=== PATIENT | female | born 1975 | race African-American/Black ===

== ENCOUNTER 2020-11-19 16:45 | Inpatient (IN) | payer OTHER, SELFPAY ==
[~2020-11-19 16:45] MED LIST: Iopamidol-370 76% 500 ML 1 ML ONE
[2020-11-19 18:02] LABS: #Eosinphils 0.2 thou/uL (0.0-0.7); #Lymphocytes 1.1 thou/uL (1.20-3.40); #Monocytes 0.5 thou/uL (0.11-0.59); #Neutrophils 8.7 thou/uL (1.40-6.50); %Basophils 0.1 % (0.0-1.0); %Eosinophils 1.9 % (0.0-10.0); %Lymphocytes 10.2 % (21.0-51.0); %Neutrophils 82.8 % (42.0-75.0); Hemoglobin 9.2 g/dL (12.0-16.0); Mean Corpuscular HGB CONC 27.5 g/dL (32.0-36.0); Mean Corpuscular Hemoglobin 19.6 pg (27.0-31.0); Mean Corpuscular Volume 71.2 fL (78.0-98.0); Mean Platelet Volume 8.6 fL (7.4-10.4); Platelet Count 210 thou/uL (130-400); RBC Distribution Width 24.9 % (11.5-14.5); White Blood Cell (WBC) Count 10.5 thou/uL (4.8-10.8)
[2020-11-19 18:15] LABS: Anisocytosis MODERATE=16-30 cells (100X) (0-5/hpf); Hypochromia SLIGHT = 6-15 cells (100X) (0-5/hpf); Large Platelets SLIGHT; MDiff Complete? YES; Microcytosis SLIGHT = 6-15 cells (100X) (0-5/hpf); Ovalocytes SLIGHT = 2-5 cells (100X) (0-1/hpf); Platelet Morphology Comment Appears Adequate; Poikilocytosis SLIGHT = 6-15 cells (100X) (0-5/hpf); Polychromasia SLIGHT = 2-3 cells (100X) (0-2/hpf); Target Cells SLIGHT = 2-5 cells (100X) (0-1/hpf)
[2020-11-19 18:19] LABS: ALT (SGPT) 28 U/L (8-55); AST (SGOT) 18 U/L (5-34); Albumin 3.2 g/dL (3.5-5.0); Alkaline Phosphatase 129 U/L (40-110); Anion Gap 13 mmol/L (10-20); BUN (Urea Nitrogen) 42 mg/dL (7.0-18.7); Bilirubin, Total 0.9 mg/dL (0.2-1.2); Calc. Creatinine Clearance 0 mL/min (70-130); Calcium 7.8 mg/dL (7.8-10.44); Carbon Dioxide 31 mmol/L (22-29); Chloride 107 mmol/L (98-107); Globulin 4.4 g/dL (2.4-3.5); Glucose 144 mg/dL (70-105); Potassium 3.6 mmol/L (3.5-5.1); Protein, Total 7.6 g/dL (6.0-8.3); Sodium 147 mmol/L (136-145)
[2020-11-19] MEDS ORDERED: Aspirin Chewable 81 MG TAB ONE (18:33)
[2020-11-19] MEDS ORDERED: Furosemide 40 MG/4 ML VIAL ONE (18:33)
[2020-11-19 18:42] LABS: CKMB 1.7 ng/mL (0-6.6)
[2020-11-19] MEDS ORDERED: Nitroglycerin 2% Ointment 1 INCH/1 GM Packet ONE (18:49)
[2020-11-19 19:35] LABS: Bacteria/HPF None Seen HPF (None Seen); Bilirubin Negative (Negative); Blood, Urine 2+ (Negative); Clarity Clear (Clear); Glucose, Urine (Dipstick) Normal (Negative); Ketone, Urine Negative (Negative); Leukocyte 25 Leu/uL (Negative); Nitrite Negative (Negative); Protein, Urine (Dipstick) 50 mg/dL (Neg-Trace); RBC/HPF 0-3 HPF (0-3); Specific Gravity, Urine 1.012 (1.002-1.036); Squamous Epithelial 0-3 HPF (0-3); Urobilinogen Normal mg/dL (Less than 2); pH, Urine 5.5 (5.0-9.0)
[2020-11-19] MEDS ORDERED: Heparin 10,000 UNITS/ 10 ML VIAL ONE (19:40)
[2020-11-19] MEDS ORDERED: Heparin 25,000 units/D5W 500 ML ONE (19:40)
[2020-11-19 20:08] LABS: SARS-CoV-2 NAA Rapid Test Not Detected (NotDetected)
[2020-11-19 21:40] LABS: Troponin I 0.046 ng/mL (< 0.028)
[2020-11-20 02:22] LABS: Troponin I 0.034 ng/mL (< 0.028)
[2020-11-20 05:48] LABS: Iron 22 ug/dL (50-170); Iron Binding Capacity, Total 436 mcg/dL (265-497)
[2020-11-20 05:49] LABS: Anion Gap 12 mmol/L (10-20); BUN (Urea Nitrogen) 39 mg/dL (7.0-18.7); Calc. Creatinine Clearance 115 mL/min (70-130); Calcium 8.4 mg/dL (7.8-10.44); Carbon Dioxide 36 mmol/L (22-29); Chloride 105 mmol/L (98-107); Glucose 179 mg/dL (70-105); Iron Binding Capacity, Total 440 mcg/dL (265-497); Sodium 149 mmol/L (136-145)
[2020-11-20 06:06] LABS: Hemoglobin 9.3 g/dL (12.0-16.0); Mean Corpuscular Hemoglobin 19.2 pg (27.0-31.0); Mean Corpuscular Volume 71.2 fL (78.0-98.0); Mean Platelet Volume 8.6 fL (7.4-10.4); Platelet Count 238 thou/uL (130-400); RBC Distribution Width 25.3 % (11.5-14.5); Red Blood Cell (RBC) Count 4.86 mill/uL (4.20-5.40); White Blood Cell (WBC) Count 12.7 thou/uL (4.8-10.8)
[2020-11-20 06:27] LABS: Band 9 % (5-11); Hypochromia MODERATE=16-30 cells (100X) (0-5/hpf); Lymphocytes 4 % (21-51); MDiff Complete? YES; Metamyelocyte 1 % (0-0); Microcytosis SLIGHT = 6-15 cells (100X) (0-5/hpf); Neutrophil 86 % (42-75); Nucleated RBC 3 % (0); Ovalocytes SLIGHT = 2-5 cells (100X) (0-1/hpf); Platelet Morphology Comment Appears Adequate
[2020-11-20] MEDS: Furosemide 40 MG/4 ML VIAL SLOW IVP SCH (08:13)
[2020-11-20] MEDS ORDERED: FLU VACC QS2020-21(6MOS UP)/PF 60 MCG/0.5 ML SYRINGE IM ONE (09:00)
[2020-11-20] MEDS ORDERED: Iron Sucrose Complex 100 MG in Sodium Chloride 0.9% 100 ML IVPB SCH (15:45)
[2020-11-20] MEDS ORDERED: Iron, Sodium Ferric Gluconate 125 MG in Sodium Chloride 0.9% 100 ML IVPB SCH (17:00)
[2020-11-21 04:48] LABS: #Eosinphils 0.1 thou/uL (0.0-0.7); #Monocytes 0.9 thou/uL (0.11-0.59); #Neutrophils 9.4 thou/uL (1.40-6.50); %Basophils 0.2 % (0.0-1.0); %Eosinophils 0.7 % (0.0-10.0); %Lymphocytes 8.6 % (21.0-51.0); %Monocytes 8.2 % (0.0-10.0); %Neutrophils 82.2 % (42.0-75.0); Hemoglobin 8.4 g/dL (12.0-16.0); Mean Corpuscular HGB CONC 27.1 g/dL (32.0-36.0); Mean Corpuscular Hemoglobin 19.5 pg (27.0-31.0); Mean Corpuscular Volume 71.9 fL (78.0-98.0); Platelet Count 224 thou/uL (130-400); RBC Distribution Width 24.7 % (11.5-14.5); Red Blood Cell (RBC) Count 4.29 mill/uL (4.20-5.40); White Blood Cell (WBC) Count 11.4 thou/uL (4.8-10.8)
[2020-11-21 05:08] LABS: Anion Gap 12 mmol/L (10-20); BUN (Urea Nitrogen) 38 mg/dL (7.0-18.7); Calc. Creatinine Clearance 125 mL/min (70-130); Calcium 8.4 mg/dL (7.8-10.44); Carbon Dioxide 35 mmol/L (22-29); Chloride 103 mmol/L (98-107); Glucose 149 mg/dL (70-105); Potassium 3.9 mmol/L (3.5-5.1); Sodium 146 mmol/L (136-145)
[2020-11-21] MEDS: Ferrous Gluconate 324 MG TAB PO SCH (08:53)
[2020-11-21] MEDS: Furosemide 40 MG/4 ML VIAL SLOW IVP SCH (08:53)
[2020-11-21] MEDS: Enoxaparin Sodium 40 MG/0.4 ML SYRINGE SC SCH (10:06)
[2020-11-21] MEDS ORDERED: Metoprolol Tartrate 25 MG TAB PO SCH (12:00)
[2020-11-21] MEDS ORDERED: Furosemide 40 MG/4 ML VIAL SLOW IVP SCH ×3 (14:00→18:30)
[2020-11-21] MEDS: guaiFENesin ER 600 MG TAB PO SCH (16:05)
[2020-11-21] MEDS ORDERED: guaiFENesin ER 600 MG TAB PO SCH (16:15)
[2020-11-21 18:46] LABS: Base Excess (BEa) 8.5 mEq/L (-2.0 to +3.0); Calcium, Ionized (arterial) 1.22 mmol/L (1.12-1.30); Carboxyhemoglobin (COHb) 1.7 gm% (0.0-3.0); Hemoglobin (Hb) 9.6 g/dL (12.0-16.0); O2 Tension (PaO2), arterial 104.6 mmHg (80.0-100.0)
[2020-11-21 18:47] LABS: CO2 Tension 134.9 mmHg (35.0-45.0)
[2020-11-21 18:50] LABS: ALV-art Gradient 40.495 mmHg (0-20)
[2020-11-21 20:03] LABS: Actual Bicarbonate (HCO3a) 43.3 mEq/L (22-28); Calcium, Ionized (arterial) 1.18 mmol/L (1.12-1.30); Carboxyhemoglobin (COHb) 2.2 gm% (0.0-3.0); O2 Tension (PaO2), arterial 83.7 mmHg (80.0-100.0); Potassium - ABG Lab 3.97 mmol/L (3.70-5.30)
[2020-11-21 20:05] LABS: CO2 Tension 122.3 mmHg (35.0-45.0); pH, Arterial 7.17 (7.35-7.45)
[2020-11-21 20:06] LABS: ALV-art Gradient 119.925 mmHg (0-20); Puncture Site LBA
[2020-11-21] MEDS ORDERED: Electrolyte Replacement Protocol 1 EACH FS ONE (20:15)
[2020-11-21] MEDS ORDERED: methylPREDNISolone Sod Succ/PF 125 MG/2 ML VIAL IVP SCH (20:15)
[2020-11-21] MEDS ORDERED: Midazolam HCl 2 mg/2 ml Vial ONE ×2 (20:24→20:59)
[2020-11-21] MEDS ORDERED: Propofol 1,000 MG/100 ML VIAL IV ONE ×2 (20:26→22:07)
[2020-11-21] MEDS ORDERED: Electrolyte Replacement Protocol FS PRN (20:30)
[2020-11-21] MEDS ORDERED: Lorazepam 2 MG/ML VIAL ONE (21:39)
[2020-11-21 22:13] LABS: Base Excess (BEa) 6.2 mEq/L (-2.0 to +3.0); CO2 Tension 53.8 mmHg (35.0-45.0); Calcium, Ionized (arterial) 1.15 mmol/L (1.12-1.30); Carboxyhemoglobin (COHb) 1.9 gm% (0.0-3.0); Hemoglobin (Hb) 8.4 g/dL (12.0-16.0); O2 Tension (PaO2), arterial 73.1 mmHg (80.0-100.0); Potassium - ABG Lab 3.95 mmol/L (3.70-5.30); pH, Arterial 7.39 (7.35-7.45)
[2020-11-21] MEDS ORDERED: DISCONTINUE PREVIOUS NARCOTIC PAIN MEDICATIONS AND BENZODIAZEPINES FS SCH (22:15)
[2020-11-21] MEDS ORDERED: Morphine 2 MG/ML VIAL SLOW IVP PRN (22:15)
[2020-11-21] MEDS ORDERED: Fentanyl BOLUS 250 ML IVPB PRN (22:15)
[2020-11-21] MEDS ORDERED: Propofol BOLUS 1,000 MG/100 ML VIAL IV PRN (22:15)
[2020-11-21 22:40] LABS: Puncture Site RBA
[2020-11-21] MEDS: Metoprolol Tartrate 25 MG TAB PO SCH (22:51)
[2020-11-21] MEDS: fentaNYL Citrate/PF 2,000 MCG in Sodium Chloride 0.9% 60 ML IV SCH (23:39)
[2020-11-22] MEDS: Lorazepam 2 MG/ML VIAL SLOW IVP PRN ×3 (02:58→13:01)
[2020-11-22] MEDS: Propofol 1,000 MG/100 ML VIAL IV PRN ×10 (02:58→20:58)
[2020-11-22 04:53] LABS: Hemoglobin A1c 5.8 % (4.0-6.0)
[2020-11-22 05:03] LABS: #Eosinphils 0.1 thou/uL (0.0-0.7); #Lymphocytes 0.7 thou/uL (1.20-3.40); #Monocytes 0.4 thou/uL (0.11-0.59); #Neutrophils 7.3 thou/uL (1.40-6.50); %Eosinophils 0.9 % (0.0-10.0); %Lymphocytes 8.4 % (21.0-51.0); %Monocytes 5.2 % (0.0-10.0); %Neutrophils 85.4 % (42.0-75.0); Hemoglobin 8.1 g/dL (12.0-16.0); Mean Corpuscular HGB CONC 27.1 g/dL (32.0-36.0); Mean Corpuscular Hemoglobin 19.9 pg (27.0-31.0); Mean Corpuscular Volume 73.4 fL (78.0-98.0); Mean Platelet Volume 7.6 fL (7.4-10.4); Platelet Count 219 thou/uL (130-400); RBC Distribution Width 24.7 % (11.5-14.5); Red Blood Cell (RBC) Count 4.08 mill/uL (4.20-5.40); White Blood Cell (WBC) Count 8.5 thou/uL (4.8-10.8)
[2020-11-22 05:10] LABS: Anion Gap 15 mmol/L (10-20); BUN (Urea Nitrogen) 39 mg/dL (7.0-18.7); Calc. Creatinine Clearance 142 mL/min (70-130); Calcium 8.7 mg/dL (7.8-10.44); Carbon Dioxide 34 mmol/L (22-29); Chloride 102 mmol/L (98-107); Glucose 98 mg/dL (70-105); Potassium 3.3 mmol/L (3.5-5.1); Sodium 148 mmol/L (136-145)
[2020-11-22] MEDS: Furosemide 40 MG/4 ML VIAL SLOW IVP SCH ×5 (05:38→23:13)
[2020-11-22] MEDS: methylPREDNISolone Sod Succ 40 MG VIAL IVP SCH ×4 (05:38→23:13)
[2020-11-22 05:50] LABS: SARS-CoV-2 MS2 Positive; SARS-CoV-2 N Gene Negative; SARS-CoV-2 S Gene Negative; SARS-CoV-2 by NAA Not Detected (NotDetected); SARS-CoV-2 orf1ab Negative
[2020-11-22] MEDS: Metoprolol Tartrate 25 MG TAB PO SCH ×2 (07:53→20:58)
[2020-11-22] MEDS: Ferrous Gluconate 324 MG TAB PO SCH (07:53)
[2020-11-22] MEDS: Enoxaparin Sodium 40 MG/0.4 ML SYRINGE SC SCH (07:53)
[2020-11-22] MEDS ORDERED: Potassium Chloride 2 MEQ in Premix Bag 1 BAG IVPB SCH (08:00)
[2020-11-22] MEDS ORDERED: Potassium Chloride 20 MEQ in Premix Bag 1 BAG IVPB SCH (10:00)
[2020-11-22] MEDS: GUAIFENESIN SF SOLN 200 MG/10 ML UDCUP PO SCH ×3 (11:47→21:20)
[2020-11-22] MEDS: fentaNYL Citrate/PF 2,000 MCG in Sodium Chloride 0.9% 60 ML IV SCH (12:17)
[2020-11-22] MEDS ORDERED: guaiFENesin 100 MG/5 ML UDCUP PO SCH (13:00)
[2020-11-22] MEDS: cefTRIAXone\\ROCEPHIN 2 GM in Sodium Chloride 0.9% 100 ML IVPB SCH (14:26)
[2020-11-22] MEDS: Acetaminophen 650 MG/20.3 ML UDCUP PO PRN ×2 (16:57→21:17)
[2020-11-23] MEDS: GUAIFENESIN SF SOLN 200 MG/10 ML UDCUP PO SCH ×6 (00:25→20:31)
[2020-11-23] MEDS: Propofol 1,000 MG/100 ML VIAL IV PRN ×7 (00:25→21:26)
[2020-11-23] MEDS: fentaNYL Citrate/PF 2,000 MCG in Sodium Chloride 0.9% 60 ML IV SCH ×2 (01:15→13:49)
[2020-11-23 04:39] LABS: Anion Gap 12 mmol/L (10-20); BUN (Urea Nitrogen) 36 mg/dL (7.0-18.7); Calc. Creatinine Clearance 0 mL/min (70-130); Calcium 8.5 mg/dL (7.8-10.44); Carbon Dioxide 35 mmol/L (22-29); Chloride 104 mmol/L (98-107); Glucose 138 mg/dL (70-105); Sodium 148 mmol/L (136-145)
[2020-11-23 04:41] LABS: Potassium 2.7 mmol/L (3.5-5.1)
[2020-11-23 04:44] LABS: #Lymphocytes 0.6 thou/uL (1.20-3.40); #Monocytes 0.6 thou/uL (0.11-0.59); #Neutrophils 7.8 thou/uL (1.40-6.50); %Eosinophils 0.3 % (0.0-10.0); %Lymphocytes 6.2 % (21.0-51.0); %Monocytes 6.3 % (0.0-10.0); %Neutrophils 87.1 % (42.0-75.0); Mean Corpuscular HGB CONC 27.6 g/dL (32.0-36.0); Mean Corpuscular Hemoglobin 19.7 pg (27.0-31.0); Mean Corpuscular Volume 71.2 fL (78.0-98.0); Mean Platelet Volume 7.7 fL (7.4-10.4); Platelet Count 243 thou/uL (130-400); RBC Distribution Width 25.9 % (11.5-14.5); Red Blood Cell (RBC) Count 4.08 mill/uL (4.20-5.40)
[2020-11-23] MEDS: Potassium Chloride 40 MEQ in Sodium Chloride 0.9% 250 ML 250 ML IVPB SCH ×2 (05:12→13:34)
[2020-11-23] MEDS: methylPREDNISolone Sod Succ 40 MG VIAL IVP SCH ×3 (06:32→17:47)
[2020-11-23] MEDS: Furosemide 40 MG/4 ML VIAL SLOW IVP SCH ×3 (06:32→20:31)
[2020-11-23] MEDS: Ferrous Gluconate 324 MG TAB PO SCH (07:58)
[2020-11-23] MEDS: Enoxaparin Sodium 40 MG/0.4 ML SYRINGE SC SCH (07:58)
[2020-11-23] MEDS ORDERED: Potassium Chloride 40 MEQ in Sodium Chloride 0.9% 250 ML 250 ML IVPB SCH (09:00)
[2020-11-23] MEDS: Lorazepam 2 MG/ML VIAL SLOW IVP PRN (13:59)
[2020-11-23] MEDS: cefTRIAXone\\ROCEPHIN 2 GM in Sodium Chloride 0.9% 100 ML IVPB SCH (14:28)
[2020-11-23] MEDS ORDERED: NIFEdipine 10 MG CAP PER TUBE SCH (17:00)
[2020-11-23] MEDS ORDERED: Pancrelipase DR 12,000 1 CAP FS PRN (19:45)
[2020-11-23] MEDS ORDERED: Sodium Bicarbonate Tab 325 MG TAB PER TUBE PRN (19:45)
[2020-11-23] MEDS: guaiFENesin ER 600 MG TAB PO SCH (20:06)
[2020-11-23] MEDS: Metoprolol Tartrate 25 MG TAB PO SCH (20:06)
[2020-11-23] MEDS: Famotidine 20 MG TAB PO SCH (20:31)
[2020-11-23] MEDS ORDERED: Metoprolol Tartrate 25 MG TAB PO SCH (21:00)
[2020-11-24] MEDS: Metoprolol Tartrate 25 MG TAB PER TUBE SCH ×3 (00:02→21:45)
[2020-11-24] MEDS: methylPREDNISolone Sod Succ 40 MG VIAL IVP SCH ×4 (00:55→18:26)
[2020-11-24] MEDS: Propofol 1,000 MG/100 ML VIAL IV PRN ×7 (00:55→21:45)
[2020-11-24] MEDS: GUAIFENESIN SF SOLN 200 MG/10 ML UDCUP PO SCH ×6 (00:55→21:44)
[2020-11-24] MEDS ORDERED: Fentanyl CADD 100 ML ONE ×2 (01:44→13:59)
[2020-11-24] MEDS ORDERED: fentaNYL Citrate/PF 2,000 MCG in Sodium Chloride 0.9% 60 ML IV SCH (02:00)
[2020-11-24] MEDS: Furosemide 40 MG/4 ML VIAL SLOW IVP SCH ×3 (04:24→21:44)
[2020-11-24 05:37] LABS: #Lymphocytes 0.7 thou/uL (1.20-3.40); #Monocytes 0.6 thou/uL (0.11-0.59); #Neutrophils 10.2 thou/uL (1.40-6.50); %Eosinophils 0.1 % (0.0-10.0); %Lymphocytes 5.9 % (21.0-51.0); Hemoglobin 8.3 g/dL (12.0-16.0); Mean Corpuscular HGB CONC 27.6 g/dL (32.0-36.0); Mean Corpuscular Hemoglobin 20.2 pg (27.0-31.0); Mean Corpuscular Volume 73.1 fL (78.0-98.0); Mean Platelet Volume 8.2 fL (7.4-10.4); Platelet Count 233 thou/uL (130-400); RBC Distribution Width 26.7 % (11.5-14.5); Red Blood Cell (RBC) Count 4.11 mill/uL (4.20-5.40); White Blood Cell (WBC) Count 11.4 thou/uL (4.8-10.8)
[2020-11-24 05:52] LABS: Anion Gap 15 mmol/L (10-20); BUN (Urea Nitrogen) 41 mg/dL (7.0-18.7); Calc. Creatinine Clearance 123 mL/min (70-130); Calcium 8.2 mg/dL (7.8-10.44); Carbon Dioxide 30 mmol/L (22-29); Chloride 106 mmol/L (98-107); Glucose 148 mg/dL (70-105); Sodium 149 mmol/L (136-145)
[2020-11-24 05:56] LABS: Potassium 2.4 mmol/L (3.5-5.1)
[2020-11-24] MEDS: Potassium Chloride 40 MEQ in Sodium Chloride 0.9% 250 ML 250 ML IVPB SCH ×2 (07:08→12:03)
[2020-11-24] MEDS: Famotidine 20 MG TAB PO SCH ×2 (09:22→21:45)
[2020-11-24] MEDS: Ferrous Gluconate 324 MG TAB PO SCH (09:22)
[2020-11-24] MEDS: Enoxaparin Sodium 40 MG/0.4 ML SYRINGE SC SCH (09:22)
[2020-11-24] MEDS: NIFEdipine 10 MG CAP PER TUBE SCH (09:22)
[2020-11-24] MEDS: Fentanyl CADD 100 ML IV SCH (14:03)
[2020-11-24] MEDS: cefTRIAXone\\ROCEPHIN 2 GM in Sodium Chloride 0.9% 100 ML IVPB SCH (14:04)
[2020-11-25] MEDS: GUAIFENESIN SF SOLN 200 MG/10 ML UDCUP PO SCH ×6 (00:31→20:17)
[2020-11-25] MEDS: methylPREDNISolone Sod Succ 40 MG VIAL IVP SCH ×5 (00:31→22:56)
[2020-11-25] MEDS ORDERED: Fentanyl CADD 100 ML ONE ×2 (02:05→14:47)
[2020-11-25 06:27] LABS: Anion Gap 16 mmol/L (10-20); BUN (Urea Nitrogen) 47 mg/dL (7.0-18.7); Calc. Creatinine Clearance 124 mL/min (70-130); Calcium 8.1 mg/dL (7.8-10.44); Carbon Dioxide 27 mmol/L (22-29); Chloride 109 mmol/L (98-107); Glucose 180 mg/dL (70-105); Potassium 2.6 mmol/L (3.5-5.1); Sodium 149 mmol/L (136-145)
[2020-11-25] MEDS: Furosemide 40 MG/4 ML VIAL SLOW IVP SCH ×3 (06:38→20:17)
[2020-11-25 07:40] LABS: Hemoglobin 8.7 g/dL (12.0-16.0); Platelet Count 232 thou/uL (130-400); RBC Distribution Width 27.6 % (11.5-14.5); Red Blood Cell (RBC) Count 4.32 mill/uL (4.20-5.40); White Blood Cell (WBC) Count 11.9 thou/uL (4.8-10.8)
[2020-11-25] MEDS: Propofol 1,000 MG/100 ML VIAL IV PRN ×5 (07:53→22:56)
[2020-11-25] MEDS: Potassium Chloride 20 MEQ in Premix Bag 1 BAG IVPB SCH ×4 (07:53→15:28)
[2020-11-25 08:10] LABS: #Lymphocytes 0.6 thou/uL (1.20-3.40); #Monocytes 0.4 thou/uL (0.11-0.59); #Neutrophils 10.9 thou/uL (1.40-6.50); %Neutrophils 91.9 % (42.0-75.0); Anisocytosis MARKED = >30 cells (100X) (0-5/hpf); Band 3 % (5-11); Hypochromia MODERATE=16-30 cells (100X) (0-5/hpf); Lymphocytes 2 % (21-51); MDiff Complete? YES; Mean Corpuscular HGB CONC 27.7 g/dL (32.0-36.0); Mean Corpuscular Hemoglobin 20.2 pg (27.0-31.0); Mean Platelet Volume 8.9 fL (7.4-10.4); Metamyelocyte 1 % (0-0); Monocytes 3 % (0-10); Neutrophil 91 % (42-75); Ovalocytes SLIGHT = 2-5 cells (100X) (0-1/hpf); Platelet Morphology Comment Appears Adequate; Polychromasia MARKED = >4 cells (100X) (0-2/hpf)
[2020-11-25] MEDS ORDERED: NIFEdipine 10 MG CAP PER TUBE SCH (09:15)
[2020-11-25] MEDS: Enoxaparin Sodium 40 MG/0.4 ML SYRINGE SC SCH (09:24)
[2020-11-25] MEDS: Potassium Bicarbonate/Cit Ac 20 MEQ TAB PER TUBE SCH ×3 (09:25→20:18)
[2020-11-25] MEDS: Famotidine 20 MG TAB PO SCH ×2 (09:26→20:18)
[2020-11-25] MEDS: Ferrous Gluconate 324 MG TAB PO SCH (09:26)
[2020-11-25] MEDS: Metoprolol Tartrate 25 MG TAB PER TUBE SCH ×3 (09:26→20:18)
[2020-11-25] MEDS: NIFEdipine 10 MG CAP PER TUBE SCH (09:50)
[2020-11-25] MEDS: Fentanyl CADD 100 ML IV SCH (14:50)
[2020-11-25] MEDS: cefTRIAXone\\ROCEPHIN 2 GM in Sodium Chloride 0.9% 100 ML IVPB SCH (15:02)
[2020-11-25] MEDS: Lorazepam 2 MG/ML VIAL SLOW IVP PRN (22:56)
[2020-11-26] MEDS: GUAIFENESIN SF SOLN 200 MG/10 ML UDCUP PO SCH ×6 (00:49→20:50)
[2020-11-26] MEDS: Propofol 1,000 MG/100 ML VIAL IV PRN ×7 (01:48→23:33)
[2020-11-26] MEDS ORDERED: Fentanyl CADD 100 ML ONE ×2 (03:24→16:03)
[2020-11-26] MEDS: Fentanyl CADD 100 ML IV SCH ×2 (03:29→16:05)
[2020-11-26] MEDS: Furosemide 40 MG/4 ML VIAL SLOW IVP SCH ×3 (03:34→20:46)
[2020-11-26] MEDS: Acetaminophen 650 MG/20.3 ML UDCUP PO PRN (03:53)
[2020-11-26] MEDS: methylPREDNISolone Sod Succ 40 MG VIAL IVP SCH ×4 (05:05→23:34)
[2020-11-26 05:08] LABS: Anion Gap 17 mmol/L (10-20); BUN (Urea Nitrogen) 45 mg/dL (7.0-18.7); Calc. Creatinine Clearance 121 mL/min (70-130); Calcium 7.9 mg/dL (7.8-10.44); Carbon Dioxide 25 mmol/L (22-29); Chloride 112 mmol/L (98-107); Glucose 205 mg/dL (70-105); Sodium 151 mmol/L (136-145)
[2020-11-26 05:14] LABS: #Lymphocytes 0.7 thou/uL (1.20-3.40); #Monocytes 0.4 thou/uL (0.11-0.59); #Neutrophils 9.1 thou/uL (1.40-6.50); %Eosinophils 0.1 % (0.0-10.0); %Lymphocytes 6.9 % (21.0-51.0); %Monocytes 3.6 % (0.0-10.0); %Neutrophils 89.4 % (42.0-75.0); Hemoglobin 8.5 g/dL (12.0-16.0); Mean Corpuscular HGB CONC 28.9 g/dL (32.0-36.0); Mean Corpuscular Hemoglobin 20.2 pg (27.0-31.0); Mean Platelet Volume 8.4 fL (7.4-10.4); Platelet Count 239 thou/uL (130-400); RBC Distribution Width 28.2 % (11.5-14.5); Red Blood Cell (RBC) Count 4.19 mill/uL (4.20-5.40); White Blood Cell (WBC) Count 10.2 thou/uL (4.8-10.8)
[2020-11-26] MEDS ORDERED: Potassium Chloride 20 MEQ TAB PO SCH (05:45)
[2020-11-26] MEDS ORDERED: Potassium Bicarbonate/Cit Ac 20 MEQ TAB PER TUBE SCH (06:30)
[2020-11-26] MEDS: Famotidine 20 MG TAB PO SCH ×2 (08:48→20:45)
[2020-11-26] MEDS: Ferrous Gluconate 324 MG TAB PO SCH (08:48)
[2020-11-26] MEDS: Potassium Bicarbonate/Cit Ac 20 MEQ TAB PER TUBE SCH ×3 (08:49→20:46)
[2020-11-26] MEDS: Metoprolol Tartrate 25 MG TAB PER TUBE SCH ×2 (08:50→20:46)
[2020-11-26] MEDS: Enoxaparin Sodium 40 MG/0.4 ML SYRINGE SC SCH (08:50)
[2020-11-26] MEDS ORDERED: NIFEdipine 10 MG CAP PER TUBE SCH (09:00)
[2020-11-26] MEDS: cefTRIAXone\\ROCEPHIN 2 GM in Sodium Chloride 0.9% 100 ML IVPB SCH (14:17)
[2020-11-27] MEDS: GUAIFENESIN SF SOLN 200 MG/10 ML UDCUP PO SCH ×6 (00:52→21:06)
[2020-11-27] MEDS: Acetaminophen 650 MG/20.3 ML UDCUP PO PRN ×3 (00:52→17:38)
[2020-11-27] MEDS: Propofol 1,000 MG/100 ML VIAL IV PRN ×5 (02:27→21:58)
[2020-11-27] MEDS ORDERED: Fentanyl CADD 100 ML ONE ×2 (03:47→19:15)
[2020-11-27 05:25] LABS: Anion Gap 17 mmol/L (10-20); BUN (Urea Nitrogen) 40 mg/dL (7.0-18.7); Calc. Creatinine Clearance 132 mL/min (70-130); Calcium 8.1 mg/dL (7.8-10.44); Carbon Dioxide 23 mmol/L (22-29); Chloride 117 mmol/L (98-107); Glucose 122 mg/dL (70-105); Sodium 154 mmol/L (136-145)
[2020-11-27 05:28] LABS: Potassium 2.9 mmol/L (3.5-5.1)
[2020-11-27] MEDS ORDERED: Potassium Chloride 40 MEQ in Premix Bag 1 BAG IVPB SCH (05:45)
[2020-11-27] MEDS: methylPREDNISolone Sod Succ 40 MG VIAL IVP SCH ×3 (06:27→17:38)
[2020-11-27] MEDS ORDERED: Lidocaine 2% PF 5 ML VIAL ONE (07:59)
[2020-11-27] MEDS ORDERED: EPINEPHrine 1 MG/ML AMP ONE (07:59)
[2020-11-27] MEDS ORDERED: Bupivacaine PF 0.5% 30 ML VIAL ONE (07:59)
[2020-11-27] MEDS: Famotidine 20 MG TAB PO SCH ×2 (08:39→21:07)
[2020-11-27] MEDS: Ferrous Gluconate 324 MG TAB PO SCH (08:39)
[2020-11-27] MEDS: Potassium Bicarbonate/Cit Ac 20 MEQ TAB PER TUBE SCH ×3 (08:39→21:07)
[2020-11-27] MEDS: Enoxaparin Sodium 40 MG/0.4 ML SYRINGE SC SCH ×2 (08:39→21:07)
[2020-11-27] MEDS: Potassium Chloride 40 MEQ in Sodium Chloride 0.9% 250 ML 250 ML IVPB SCH ×2 (08:40→13:11)
[2020-11-27] MEDS: Furosemide 40 MG/4 ML VIAL SLOW IVP SCH (08:58)
[2020-11-27] MEDS: Metoprolol Tartrate 25 MG TAB PER TUBE SCH ×2 (08:58→21:07)
[2020-11-27] MEDS: NIFEdipine 10 MG CAP PER TUBE SCH (09:05)
[2020-11-27] MEDS ORDERED: Rocuronium Bromide 10 MG/ML (10ML VIAL) ONE (09:07)
[2020-11-27] MEDS ORDERED: PHENYLEPHRINE-NS 100 MCG/ML 10 ML SYRINGE ONE (09:07)
[2020-11-27] MEDS ORDERED: ePHEDrine 50 MG/ML VIAL ONE (09:07)
[2020-11-27] MEDS ORDERED: Heparin 10,000 UNITS/ 10 ML VIAL ONE (10:02)
[2020-11-27] MEDS ORDERED: Sodium Chloride 0.9% 30 ML ONE (10:03)
[2020-11-27] MEDS ORDERED: Midazolam HCl 2 mg/2 ml Vial ONE (11:01)
[2020-11-27] MEDS ORDERED: Fentanyl 100 MCG/2 ML VIAL ONE ×2 (11:01)
[2020-11-27] MEDS: Meropenem 2 GM, Admixture Fee 1 EACH in Sodium Chloride 0.9% 100 ML IVPB SCH ×2 (14:23→21:54)
[2020-11-27 15:08] LABS: HIV (1/2) Antibody/Antigen Non-Reactive (NonReactive)
[2020-11-27] MEDS: Fentanyl CADD 100 ML IV SCH (19:21)
[2020-11-28] MEDS: methylPREDNISolone Sod Succ 40 MG VIAL IVP SCH ×4 (00:15→17:02)
[2020-11-28] MEDS: Acetaminophen 650 MG/20.3 ML UDCUP PO PRN ×3 (00:15→08:08)
[2020-11-28] MEDS: GUAIFENESIN SF SOLN 200 MG/10 ML UDCUP PO SCH ×6 (00:15→20:00)
[2020-11-28] MEDS: Propofol 1,000 MG/100 ML VIAL IV PRN ×7 (01:23→22:37)
[2020-11-28] MEDS: Meropenem 2 GM, Admixture Fee 1 EACH in Sodium Chloride 0.9% 100 ML IVPB SCH ×3 (07:59→22:17)
[2020-11-28] MEDS: Potassium Bicarbonate/Cit Ac 20 MEQ TAB PER TUBE SCH ×3 (08:05→20:00)
[2020-11-28] MEDS: Ferrous Gluconate 324 MG TAB PO SCH (08:05)
[2020-11-28] MEDS: Famotidine 20 MG TAB PO SCH ×2 (08:05→20:00)
[2020-11-28] MEDS: Enoxaparin Sodium 40 MG/0.4 ML SYRINGE SC SCH ×2 (08:06→20:01)
[2020-11-28] MEDS: NIFEdipine 10 MG CAP PER TUBE SCH (08:06)
[2020-11-28] MEDS ORDERED: Furosemide 40 MG/4 ML VIAL SLOW IVP SCH (09:00)
[2020-11-28 10:37] LABS: Anion Gap 14 mmol/L (10-20); BUN (Urea Nitrogen) 38 mg/dL (7.0-18.7); Calc. Creatinine Clearance 143 mL/min (70-130); Calcium 8.2 mg/dL (7.8-10.44); Carbon Dioxide 24 mmol/L (22-29); Chloride 119 mmol/L (98-107); Glucose 293 mg/dL (70-105); Sodium 153 mmol/L (136-145)
[2020-11-28] MEDS: Lorazepam 2 MG/ML VIAL SLOW IVP PRN (10:46)
[2020-11-28] MEDS: Metoprolol Tartrate 25 MG TAB PER TUBE SCH ×2 (10:48→20:00)
[2020-11-28] MEDS: Sodium Chloride 0.45% 1,000 ML IV SCH ×2 (10:51→23:52)
[2020-11-28] MEDS: Fentanyl CADD 100 ML IV SCH (13:21)
[2020-11-29] MEDS: GUAIFENESIN SF SOLN 200 MG/10 ML UDCUP PO SCH ×7 (01:09→23:25)
[2020-11-29] MEDS: methylPREDNISolone Sod Succ 40 MG VIAL IVP SCH ×4 (01:11→23:25)
[2020-11-29] MEDS: Propofol 1,000 MG/100 ML VIAL IV PRN ×4 (02:52→20:32)
[2020-11-29 04:33] LABS: Anion Gap 11 mmol/L (10-20); BUN (Urea Nitrogen) 40 mg/dL (7.0-18.7); Calc. Creatinine Clearance 194 mL/min (70-130); Calcium 8.8 mg/dL (7.8-10.44); Carbon Dioxide 28 mmol/L (22-29); Chloride 122 mmol/L (98-107); Glucose 190 mg/dL (70-105); Potassium 4.4 mmol/L (3.5-5.1); Sodium 157 mmol/L (136-145)
[2020-11-29 05:15] LABS: #Lymphocytes 0.5 thou/uL (1.20-3.40); #Monocytes 0.5 thou/uL (0.11-0.59); #Neutrophils 10.7 thou/uL (1.40-6.50); %Eosinophils 0.1 % (0.0-10.0); %Lymphocytes 4.6 % (21.0-51.0); %Monocytes 4.4 % (0.0-10.0); Anisocytosis MODERATE=16-30 cells (100X) (0-5/hpf); Hemoglobin 7.9 g/dL (12.0-16.0); Hypochromia MODERATE=16-30 cells (100X) (0-5/hpf); MDiff Complete? YES; Mean Corpuscular HGB CONC 28.9 g/dL (32.0-36.0); Mean Corpuscular Hemoglobin 21.2 pg (27.0-31.0); Mean Corpuscular Volume 73.2 fL (78.0-98.0); Mean Platelet Volume 9.3 fL (7.4-10.4); Microcytosis SLIGHT = 6-15 cells (100X) (0-5/hpf); Platelet Count 171 thou/uL (130-400); Platelet Morphology Comment Appears Adequate; RBC Distribution Width 25.7 % (11.5-14.5); Red Blood Cell (RBC) Count 3.71 mill/uL (4.20-5.40); Tear Drops SLIGHT = 2-5 cells (100X) (0-1/hpf); White Blood Cell (WBC) Count 11.8 thou/uL (4.8-10.8)
[2020-11-29] MEDS: Meropenem 2 GM, Admixture Fee 1 EACH in Sodium Chloride 0.9% 100 ML IVPB SCH ×3 (05:24→23:24)
[2020-11-29] MEDS: Ferrous Gluconate 324 MG TAB PO SCH (09:35)
[2020-11-29] MEDS: Metoprolol Tartrate 25 MG TAB PER TUBE SCH ×2 (09:35→20:31)
[2020-11-29] MEDS: Famotidine 20 MG TAB PO SCH ×2 (09:35→20:31)
[2020-11-29] MEDS: Enoxaparin Sodium 40 MG/0.4 ML SYRINGE SC SCH ×2 (09:35→20:30)
[2020-11-29] MEDS: NIFEdipine 10 MG CAP PER TUBE SCH (09:36)
[2020-11-29] MEDS: Dextrose 5% in Water 1,000 ML IV SCH (10:04)
[2020-11-29] MEDS: Acetaminophen 650 MG/20.3 ML UDCUP PO PRN ×2 (13:04→23:24)
[2020-11-30] MEDS: Dextrose 5% in Water 1,000 ML IV SCH ×3 (01:14→20:13)
[2020-11-30] MEDS: Propofol 1,000 MG/100 ML VIAL IV PRN ×2 (01:15→05:00)
[2020-11-30] MEDS ORDERED: Fentanyl CADD 100 ML ONE (04:31)
[2020-11-30 04:54] LABS: Anion Gap 12 mmol/L (10-20); BUN (Urea Nitrogen) 47 mg/dL (7.0-18.7); Calc. Creatinine Clearance 146 mL/min (70-130); Calcium 9.1 mg/dL (7.8-10.44); Carbon Dioxide 26 mmol/L (22-29); Chloride 119 mmol/L (98-107); Glucose 249 mg/dL (70-105); Potassium 3.9 mmol/L (3.5-5.1); Sodium 153 mmol/L (136-145)
[2020-11-30] MEDS: methylPREDNISolone Sod Succ 40 MG VIAL IVP SCH ×3 (05:00→21:54)
[2020-11-30] MEDS: GUAIFENESIN SF SOLN 200 MG/10 ML UDCUP PO SCH ×4 (05:01→19:59)
[2020-11-30 05:22] LABS: Anisocytosis SLIGHT = 6-15 cells (100X) (0-5/hpf); Band 21 % (5-11); Hemoglobin 8.4 g/dL (12.0-16.0); Hypochromia SLIGHT = 6-15 cells (100X) (0-5/hpf); Lymphocytes 2 % (21-51); MDiff Complete? YES; Mean Corpuscular HGB CONC 28.6 g/dL (32.0-36.0); Mean Corpuscular Hemoglobin 21.3 pg (27.0-31.0); Mean Corpuscular Volume 74.3 fL (78.0-98.0); Mean Platelet Volume 9.2 fL (7.4-10.4); Microcytosis SLIGHT = 6-15 cells (100X) (0-5/hpf); Monocytes 2 % (0-10); Neutrophil 75 % (42-75); Platelet Count 189 thou/uL (130-400); RBC Distribution Width 26.8 % (11.5-14.5); Red Blood Cell (RBC) Count 3.97 mill/uL (4.20-5.40); White Blood Cell (WBC) Count 13.9 thou/uL (4.8-10.8)
[2020-11-30] MEDS: Famotidine 20 MG TAB PO SCH (07:43)
[2020-11-30] MEDS: Metoprolol Tartrate 25 MG TAB PER TUBE SCH ×2 (07:43→21:28)
[2020-11-30] MEDS: Ferrous Gluconate 324 MG TAB PO SCH (07:43)
[2020-11-30] MEDS: Enoxaparin Sodium 40 MG/0.4 ML SYRINGE SC SCH ×2 (07:44→21:54)
[2020-11-30] MEDS: Acetaminophen 650 MG/20.3 ML UDCUP PO PRN (07:44)
[2020-11-30] MEDS ORDERED: ePHEDrine 50 MG/ML VIAL ONE (08:42)
[2020-11-30] MEDS ORDERED: PHENYLEPHRINE-NS 100 MCG/ML 10 ML SYRINGE ONE (08:42)
[2020-11-30] MEDS ORDERED: Rocuronium Bromide 10 MG/ML (10ML VIAL) ONE (08:42)
[2020-11-30] MEDS ORDERED: Vecuronium 10 MG VIAL ONE (08:44)
[2020-11-30] MEDS: NIFEdipine 10 MG CAP PER TUBE SCH (09:16)
[2020-11-30] MEDS: Meropenem 2 GM, Admixture Fee 1 EACH in Sodium Chloride 0.9% 100 ML IVPB SCH ×3 (09:46→21:28)
[2020-11-30] MEDS: Ondansetron PF 4 MG/2 ML Vial IVP PRN (10:34)
[2020-11-30] MEDS: Vancomycin 1.5 GRAM/300 ML BAG 1.5 GM in Premix Bag 1 BAG IVPB SCH ×2 (10:37→21:55)
[2020-11-30] MEDS ORDERED: Bupivacaine PF 0.5% 30 ML VIAL ONE (15:54)
[2020-11-30] MEDS ORDERED: Fentanyl 100 MCG/2 ML VIAL ONE (16:29)
[2020-11-30] MEDS ORDERED: Phenylephrine 10 MG/ML VIAL ONE (16:29)
[2020-11-30] MEDS ORDERED: Midazolam HCl 2 mg/2 ml Vial ONE (16:29)
[2020-11-30] MEDS ORDERED: Ketamine 50 MG/ML (10ML VIAL) ONE (16:46)
[2020-12-01] MEDS: GUAIFENESIN SF SOLN 200 MG/10 ML UDCUP PO SCH ×6 (02:29→20:30)
[2020-12-01 04:49] LABS: ALT (SGPT) 13 U/L (8-55); AST (SGOT) 12 U/L (5-34); Albumin 2.5 g/dL (3.5-5.0); Alkaline Phosphatase 74 U/L (40-110); Anion Gap 19 mmol/L (10-20); BUN (Urea Nitrogen) 74 mg/dL (7.0-18.7); Bilirubin, Total 3.6 mg/dL (0.2-1.2); Calc. Creatinine Clearance 71 mL/min (70-130); Calcium 9.4 mg/dL (7.8-10.44); Carbon Dioxide 22 mmol/L (22-29); Chloride 114 mmol/L (98-107); Globulin 3.7 g/dL (2.4-3.5); Glucose 235 mg/dL (70-105); Magnesium 2.3 mg/dL (1.6-2.6); Potassium 4.4 mmol/L (3.5-5.1); Protein, Total 6.2 g/dL (6.0-8.3); Sodium 151 mmol/L (136-145)
[2020-12-01 05:00] LABS: Anisocytosis MODERATE=16-30 cells (100X) (0-5/hpf); Band 45 % (5-11); Hemoglobin 8.1 g/dL (12.0-16.0); Hypochromia MODERATE=16-30 cells (100X) (0-5/hpf); Lymphocytes 2 % (21-51); MDiff Complete? YES; Mean Corpuscular Hemoglobin 21.3 pg (27.0-31.0); Mean Corpuscular Volume 76.1 fL (78.0-98.0); Mean Platelet Volume 9.1 fL (7.4-10.4); Neutrophil 53 % (42-75); Platelet Count 173 thou/uL (130-400); RBC Distribution Width 26.4 % (11.5-14.5); White Blood Cell (WBC) Count 19.8 thou/uL (4.8-10.8)
[2020-12-01] MEDS: Meropenem 2 GM, Admixture Fee 1 EACH in Sodium Chloride 0.9% 100 ML IVPB SCH ×3 (05:16→21:23)
[2020-12-01] MEDS: Dextrose 5% in Water 1,000 ML IV SCH ×3 (05:16→22:13)
[2020-12-01] MEDS: methylPREDNISolone Sod Succ 40 MG VIAL IVP SCH ×3 (05:17→21:23)
[2020-12-01] MEDS: Propofol 1,000 MG/100 ML VIAL IV PRN (07:09)
[2020-12-01] MEDS: Ferrous Gluconate 324 MG TAB PO SCH (08:03)
[2020-12-01] MEDS: Metoprolol Tartrate 25 MG TAB PER TUBE SCH ×2 (08:30→20:29)
[2020-12-01] MEDS: Enoxaparin Sodium 40 MG/0.4 ML SYRINGE SC SCH ×2 (08:30→20:30)
[2020-12-01] MEDS: Vancomycin 1.5 GRAM/300 ML BAG 1.5 GM in Premix Bag 1 BAG IVPB SCH ×2 (09:20→22:46)
[2020-12-01] MEDS ORDERED: Acetaminophen 650 MG Suppository PR PRN (20:10)
[2020-12-01] MEDS: Acetaminophen 325 MG TAB PO PRN (20:38)
[2020-12-01] MEDS ORDERED: Fentanyl CADD 100 ML ONE (21:33)
[2020-12-01] MEDS: Fentanyl CADD 100 ML IV SCH (21:37)
[2020-12-01 22:16] LABS: Vancomycin, Trough 41.4 ug/mL
[2020-12-02] MEDS: GUAIFENESIN SF SOLN 200 MG/10 ML UDCUP PO SCH ×6 (00:13→20:13)
[2020-12-02] MEDS: Propofol 1,000 MG/100 ML VIAL IV PRN ×2 (00:24→14:34)
[2020-12-02] MEDS: Dextrose 5% in Water 1,000 ML IV SCH ×3 (01:48→17:19)
[2020-12-02] MEDS: Meropenem 2 GM, Admixture Fee 1 EACH in Sodium Chloride 0.9% 100 ML IVPB SCH ×3 (05:25→22:39)
[2020-12-02] MEDS: methylPREDNISolone Sod Succ 40 MG VIAL IVP SCH ×3 (05:26→22:40)
[2020-12-02 05:29] LABS: ALT (SGPT) 13 U/L (8-55); AST (SGOT) 18 U/L (5-34); Albumin 2.5 g/dL (3.5-5.0); Alkaline Phosphatase 121 U/L (40-110); Anion Gap 18 mmol/L (10-20); BUN (Urea Nitrogen) 90 mg/dL (7.0-18.7); Bilirubin, Total 2.5 mg/dL (0.2-1.2); Calc. Creatinine Clearance 77 mL/min (70-130); Calcium 9.8 mg/dL (7.8-10.44); Carbon Dioxide 22 mmol/L (22-29); Chloride 112 mmol/L (98-107); Globulin 4.3 g/dL (2.4-3.5); Glucose 152 mg/dL (70-105); Potassium 3.9 mmol/L (3.5-5.1); Protein, Total 6.8 g/dL (6.0-8.3); Sodium 148 mmol/L (136-145)
[2020-12-02 05:55] LABS: Hemoglobin 7.5 g/dL (12.0-16.0); Mean Corpuscular HGB CONC 28.4 g/dL (32.0-36.0); Mean Corpuscular Hemoglobin 21.3 pg (27.0-31.0); Mean Platelet Volume 9.6 fL (7.4-10.4); Platelet Count 201 thou/uL (130-400); RBC Distribution Width 26.4 % (11.5-14.5); Red Blood Cell (RBC) Count 3.51 mill/uL (4.20-5.40); White Blood Cell (WBC) Count 18.5 thou/uL (4.8-10.8)
[2020-12-02 05:59] LABS: Anisocytosis MODERATE=16-30 cells (100X) (0-5/hpf); Band 30 % (5-11); Hypochromia MODERATE=16-30 cells (100X) (0-5/hpf); Large Platelets SLIGHT; Lymphocytes 3 % (21-51); MDiff Complete? YES; Microcytosis SLIGHT = 6-15 cells (100X) (0-5/hpf); Monocytes 2 % (0-10); Neutrophil 65 % (42-75); Platelet Morphology Comment Appears Adequate; Target Cells SLIGHT = 2-5 cells (100X) (0-1/hpf); Tear Drops SLIGHT = 2-5 cells (100X) (0-1/hpf)
[2020-12-02] MEDS: Ferrous Gluconate 324 MG TAB PO SCH (07:42)
[2020-12-02] MEDS: Enoxaparin Sodium 40 MG/0.4 ML SYRINGE SC SCH ×2 (08:38→20:13)
[2020-12-02] MEDS: Metoprolol Tartrate 25 MG TAB PER TUBE SCH ×2 (08:38→20:13)
[2020-12-02 12:15] LABS: Vancomycin, Random 28.2 ug/mL (See Comment)
[2020-12-02] MEDS ORDERED: Vancomycin 1.5 GRAM/300 ML BAG 1.5 GM in Premix Bag 1 BAG IVPB SCH (22:00)
[2020-12-02 22:18] LABS: Vancomycin, Random 18.7 ug/mL (See Comment)
[2020-12-03] MEDS: GUAIFENESIN SF SOLN 200 MG/10 ML UDCUP PO SCH ×7 (01:15→23:48)
[2020-12-03] MEDS: Dextrose 5% in Water 1,000 ML IV SCH ×4 (03:09→22:04)
[2020-12-03] MEDS: methylPREDNISolone Sod Succ 40 MG VIAL IVP SCH ×3 (05:10→22:04)
[2020-12-03 05:16] LABS: Anion Gap 14 mmol/L (10-20); BUN (Urea Nitrogen) 79 mg/dL (7.0-18.7); Calc. Creatinine Clearance 140 mL/min (70-130); Carbon Dioxide 26 mmol/L (22-29); Chloride 110 mmol/L (98-107); Potassium 3.9 mmol/L (3.5-5.1); Sodium 146 mmol/L (136-145)
[2020-12-03 05:17] LABS: Calcium 9.7 mg/dL (7.8-10.44); Glucose 177 mg/dL (70-105)
[2020-12-03] MEDS: Meropenem 2 GM, Admixture Fee 1 EACH in Sodium Chloride 0.9% 100 ML IVPB SCH ×3 (06:14→23:04)
[2020-12-03] MEDS: Propofol 1,000 MG/100 ML VIAL IV PRN ×2 (06:16→20:00)
[2020-12-03 06:44] LABS: Anisocytosis MODERATE=16-30 cells (100X) (0-5/hpf); Band 20 % (5-11); Hemoglobin 7.3 g/dL (12.0-16.0); Lymphocytes 2 % (21-51); MDiff Complete? YES; Mean Corpuscular HGB CONC 27.8 g/dL (32.0-36.0); Mean Corpuscular Hemoglobin 20.7 pg (27.0-31.0); Mean Corpuscular Volume 74.4 fL (78.0-98.0); Mean Platelet Volume 9.4 fL (7.4-10.4); Monocytes 1 % (0-10); Neutrophil 77 % (42-75); Platelet Count 230 thou/uL (130-400); RBC Distribution Width 26.3 % (11.5-14.5); Red Blood Cell (RBC) Count 3.52 mill/uL (4.20-5.40); White Blood Cell (WBC) Count 15.5 thou/uL (4.8-10.8)
[2020-12-03] MEDS: Ferrous Gluconate 324 MG TAB PO SCH (07:43)
[2020-12-03] MEDS: Metoprolol Tartrate 25 MG TAB PER TUBE SCH ×2 (08:23→19:59)
[2020-12-03] MEDS: Enoxaparin Sodium 40 MG/0.4 ML SYRINGE SC SCH ×2 (08:23→19:59)
[2020-12-03] MEDS: Fentanyl CADD 100 ML IV SCH (12:41)
[2020-12-03] MEDS ORDERED: Dextrose 5% in Water 1,000 ML IV PRN (12:45)
[2020-12-03] MEDS ORDERED: Dextrose 50% Abboject 50 ML SYRINGE IVP PRN (12:45)
[2020-12-03] MEDS ORDERED: Fentanyl CADD 100 ML ONE (12:55)
[2020-12-03] MEDS: Insulin Regular 300 UNITS/3 ML VIAL SC PRN ×2 (15:53→22:12)
[2020-12-04 03:21] LABS: Band 10 % (5-11); Hemoglobin 7.6 g/dL (12.0-16.0); Hypochromia SLIGHT = 6-15 cells (100X) (0-5/hpf); Lymphocytes 4 % (21-51); MDiff Complete? YES; Mean Corpuscular HGB CONC 29.2 g/dL (32.0-36.0); Mean Corpuscular Hemoglobin 21.8 pg (27.0-31.0); Mean Corpuscular Volume 74.7 fL (78.0-98.0); Mean Platelet Volume 9.4 fL (7.4-10.4); Monocytes 2 % (0-10); Neutrophil 84 % (42-75); Platelet Count 226 thou/uL (130-400); Platelet Morphology Comment Appears Adequate; RBC Distribution Width 25.8 % (11.5-14.5); Red Blood Cell (RBC) Count 3.48 mill/uL (4.20-5.40); White Blood Cell (WBC) Count 9.7 thou/uL (4.8-10.8)
[2020-12-04 03:27] LABS: Anion Gap 13 mmol/L (10-20); BUN (Urea Nitrogen) 70 mg/dL (7.0-18.7); Calc. Creatinine Clearance 175 mL/min (70-130); Calcium 9.5 mg/dL (7.8-10.44); Carbon Dioxide 27 mmol/L (22-29); Chloride 110 mmol/L (98-107); Glucose 246 mg/dL (70-105); Potassium 4.4 mmol/L (3.5-5.1); Sodium 146 mmol/L (136-145)
[2020-12-04] MEDS: GUAIFENESIN SF SOLN 200 MG/10 ML UDCUP PO SCH ×6 (03:57→23:28)
[2020-12-04] MEDS: Propofol 1,000 MG/100 ML VIAL IV PRN ×3 (03:57→23:15)
[2020-12-04] MEDS: Insulin Regular 300 UNITS/3 ML VIAL SC PRN (04:28)
[2020-12-04] MEDS: Acetaminophen 325 MG TAB PO PRN ×2 (04:55→20:44)
[2020-12-04] MEDS: Dextrose 5% in Water 1,000 ML IV SCH ×3 (04:56→23:30)
[2020-12-04] MEDS: methylPREDNISolone Sod Succ 40 MG VIAL IVP SCH ×3 (05:03→21:21)
[2020-12-04] MEDS: Meropenem 2 GM, Admixture Fee 1 EACH in Sodium Chloride 0.9% 100 ML IVPB SCH ×3 (06:19→21:20)
[2020-12-04] MEDS ORDERED: Dextrose 5% in Water 1,000 ML IV PRN (07:55)
[2020-12-04] MEDS ORDERED: Dextrose 50% Abboject 50 ML SYRINGE SLOW IVP PRN (07:55)
[2020-12-04] MEDS: Ferrous Gluconate 324 MG TAB PO SCH (08:36)
[2020-12-04] MEDS: Metoprolol Tartrate 25 MG TAB PER TUBE SCH ×2 (08:36→20:44)
[2020-12-04] MEDS: Enoxaparin Sodium 40 MG/0.4 ML SYRINGE SC SCH ×2 (08:37→20:44)
[2020-12-04] MEDS: HumaLOG 300 UNITS/3 ML VIAL SC PRN ×3 (14:06→20:49)
[2020-12-04] MEDS ORDERED: Fentanyl CADD 100 ML ONE (21:01)
[2020-12-04] MEDS ORDERED: DISCONTINUE PREVIOUS NARCOTIC PAIN MEDICATIONS AND BENZODIAZEPINES FS SCH (21:15)
[2020-12-04] MEDS ORDERED: Lorazepam 2 MG/ML VIAL SLOW IVP PRN (21:15)
[2020-12-04] MEDS ORDERED: Propofol BOLUS 1,000 MG/100 ML VIAL IV PRN (21:15)
[2020-12-04] MEDS ORDERED: Fentanyl BOLUS 250 ML IVPB PRN (21:15)
[2020-12-05 02:57] LABS: #Lymphocytes 0.3 thou/uL (1.20-3.40); #Monocytes 0.5 thou/uL (0.11-0.59); #Neutrophils 6.8 thou/uL (1.40-6.50); %Eosinophils 0.3 % (0.0-10.0); %Lymphocytes 4.2 % (21.0-51.0); %Monocytes 6.1 % (0.0-10.0); %Neutrophils 89.4 % (42.0-75.0); Hemoglobin 7.6 g/dL (12.0-16.0); Mean Corpuscular HGB CONC 29.2 g/dL (32.0-36.0); Mean Corpuscular Hemoglobin 21.7 pg (27.0-31.0); Mean Corpuscular Volume 74.4 fL (78.0-98.0); Mean Platelet Volume 9.9 fL (7.4-10.4); Platelet Count 254 thou/uL (130-400); RBC Distribution Width 26.1 % (11.5-14.5); Red Blood Cell (RBC) Count 3.52 mill/uL (4.20-5.40); White Blood Cell (WBC) Count 7.6 thou/uL (4.8-10.8)
[2020-12-05] MEDS: GUAIFENESIN SF SOLN 200 MG/10 ML UDCUP PO SCH ×5 (03:09→20:04)
[2020-12-05 03:22] LABS: Anion Gap 13 mmol/L (10-20); BUN (Urea Nitrogen) 63 mg/dL (7.0-18.7); Calc. Creatinine Clearance 229 mL/min (70-130); Calcium 9.5 mg/dL (7.8-10.44); Carbon Dioxide 29 mmol/L (22-29); Chloride 109 mmol/L (98-107); Glucose 235 mg/dL (70-105); Potassium 4.2 mmol/L (3.5-5.1); Sodium 147 mmol/L (136-145)
[2020-12-05] MEDS: Propofol 1,000 MG/100 ML VIAL IV PRN ×3 (03:48→21:00)
[2020-12-05] MEDS: Acetaminophen 325 MG TAB PO PRN (03:48)
[2020-12-05] MEDS: HumaLOG 300 UNITS/3 ML VIAL SC PRN ×5 (04:19→21:38)
[2020-12-05] MEDS: methylPREDNISolone Sod Succ 40 MG VIAL IVP SCH ×3 (05:00→21:31)
[2020-12-05] MEDS: Meropenem 2 GM, Admixture Fee 1 EACH in Sodium Chloride 0.9% 100 ML IVPB SCH ×3 (05:49→22:25)
[2020-12-05] MEDS: Dextrose 5% in Water 1,000 ML IV SCH ×2 (08:11→17:03)
[2020-12-05] MEDS: Enoxaparin Sodium 40 MG/0.4 ML SYRINGE SC SCH ×2 (08:35→20:05)
[2020-12-05] MEDS: Ferrous Gluconate 324 MG TAB PO SCH (08:36)
[2020-12-05] MEDS: Metoprolol Tartrate 25 MG TAB PER TUBE SCH ×2 (08:36→20:05)
[2020-12-05] MEDS ORDERED: Fentanyl CADD 100 ML ONE (20:33)
[2020-12-05] MEDS: Fentanyl CADD 100 ML IV SCH (20:37)
[2020-12-06] MEDS: GUAIFENESIN SF SOLN 200 MG/10 ML UDCUP PO SCH ×7 (00:30→23:43)
[2020-12-06] MEDS: Dextrose 5% in Water 1,000 ML IV SCH ×4 (01:50→23:10)
[2020-12-06 02:07] LABS: Hemoglobin 7.3 g/dL (12.0-16.0); Mean Corpuscular Hemoglobin 21.6 pg (27.0-31.0); Mean Corpuscular Volume 74.5 fL (78.0-98.0); Mean Platelet Volume 8.4 fL (7.4-10.4); Platelet Count 249 thou/uL (130-400); RBC Distribution Width 26.1 % (11.5-14.5); Red Blood Cell (RBC) Count 3.38 mill/uL (4.20-5.40); White Blood Cell (WBC) Count 6.4 thou/uL (4.8-10.8)
[2020-12-06 02:25] LABS: Band 5 % (5-11); Hypochromia SLIGHT = 6-15 cells (100X) (0-5/hpf); Lymphocytes 9 % (21-51); MDiff Complete? YES; Microcytosis SLIGHT = 6-15 cells (100X) (0-5/hpf); Monocytes 6 % (0-10); Neutrophil 80 % (42-75); Platelet Morphology Comment Appears Decreased
[2020-12-06 02:31] LABS: Anion Gap 12 mmol/L (10-20); BUN (Urea Nitrogen) 45 mg/dL (7.0-18.7); Calc. Creatinine Clearance 0 mL/min (70-130); Calcium 9.4 mg/dL (7.8-10.44); Carbon Dioxide 30 mmol/L (22-29); Chloride 108 mmol/L (98-107); Glucose 208 mg/dL (70-105); Potassium 4.1 mmol/L (3.5-5.1); Sodium 146 mmol/L (136-145)
[2020-12-06] MEDS: HumaLOG 300 UNITS/3 ML VIAL SC PRN ×3 (04:17→22:48)
[2020-12-06] MEDS: Propofol 1,000 MG/100 ML VIAL IV PRN ×2 (04:44→10:29)
[2020-12-06] MEDS: methylPREDNISolone Sod Succ 40 MG VIAL IVP SCH ×3 (05:12→22:50)
[2020-12-06] MEDS: Meropenem 2 GM, Admixture Fee 1 EACH in Sodium Chloride 0.9% 100 ML IVPB SCH ×3 (05:39→22:00)
[2020-12-06] MEDS: Metoprolol Tartrate 25 MG TAB PER TUBE SCH ×2 (08:30→20:20)
[2020-12-06] MEDS: Ferrous Gluconate 324 MG TAB PO SCH (08:30)
[2020-12-06] MEDS: Enoxaparin Sodium 40 MG/0.4 ML SYRINGE SC SCH ×2 (08:31→20:20)
[2020-12-06] MEDS ORDERED: Furosemide 40 MG/4 ML VIAL SLOW IVP SCH (11:45)
[2020-12-06] MEDS: Acetaminophen 650 MG/20.3 ML UDCUP PO PRN (17:59)
[2020-12-06] MEDS ORDERED: Fentanyl CADD 100 ML ONE (21:07)
[2020-12-07 04:10] LABS: #Lymphocytes 0.5 thou/uL (1.20-3.40); #Monocytes 0.4 thou/uL (0.11-0.59); #Neutrophils 4.6 thou/uL (1.40-6.50); %Basophils 0.1 % (0.0-1.0); %Eosinophils 0.4 % (0.0-10.0); %Lymphocytes 9.7 % (21.0-51.0); %Neutrophils 82.8 % (42.0-75.0); Hemoglobin 7.4 g/dL (12.0-16.0); Mean Corpuscular HGB CONC 29.4 g/dL (32.0-36.0); Mean Corpuscular Hemoglobin 21.9 pg (27.0-31.0); Mean Corpuscular Volume 74.3 fL (78.0-98.0); Mean Platelet Volume 8.7 fL (7.4-10.4); Platelet Count 272 thou/uL (130-400); RBC Distribution Width 25.9 % (11.5-14.5); Red Blood Cell (RBC) Count 3.38 mill/uL (4.20-5.40); White Blood Cell (WBC) Count 5.5 thou/uL (4.8-10.8)
[2020-12-07] MEDS: GUAIFENESIN SF SOLN 200 MG/10 ML UDCUP PO SCH ×6 (04:20→23:38)
[2020-12-07] MEDS: HumaLOG 300 UNITS/3 ML VIAL SC PRN ×3 (04:20→21:08)
[2020-12-07 04:25] LABS: Anion Gap 12 mmol/L (10-20); BUN (Urea Nitrogen) 36 mg/dL (7.0-18.7); Calc. Creatinine Clearance 282 mL/min (70-130); Calcium 9.2 mg/dL (7.8-10.44); Carbon Dioxide 34 mmol/L (22-29); Chloride 108 mmol/L (98-107); Glucose 201 mg/dL (70-105); Sodium 150 mmol/L (136-145)
[2020-12-07] MEDS: methylPREDNISolone Sod Succ 40 MG VIAL IVP SCH ×3 (05:12→22:47)
[2020-12-07] MEDS: Meropenem 2 GM, Admixture Fee 1 EACH in Sodium Chloride 0.9% 100 ML IVPB SCH ×3 (05:51→22:26)
[2020-12-07] MEDS: Enoxaparin Sodium 40 MG/0.4 ML SYRINGE SC SCH ×2 (08:41→20:55)
[2020-12-07] MEDS ORDERED: Furosemide 40 MG/4 ML VIAL SLOW IVP SCH ×2 (09:00)
[2020-12-07 09:16] LABS: Pregnancy Test - Urine (BHCG) Negative (Negative); Pregu Control Background? CLEAR/WHITE (CLR/WHITE); Pregu Control Bar Appear? YES (CONTROL BAR); Specific Gravity 1.017 (1.002-1.036)
[2020-12-07] MEDS: Ferrous Gluconate 324 MG TAB PO SCH (10:51)
[2020-12-07] MEDS: Metoprolol Tartrate 25 MG TAB PER TUBE SCH ×2 (10:52→20:55)
[2020-12-07] MEDS ORDERED: Iopamidol 370 76% 50 ML VIAL FS ONE (12:08)
[2020-12-07] MEDS ORDERED: Iopamidol-370 76% 500 ML 1 ML ONE (12:08)
[2020-12-07] MEDS ORDERED: Fentanyl CADD 0 ML ONE (20:15)
[2020-12-07] MEDS ORDERED: Fentanyl CADD 100 ML ONE (20:19)
[2020-12-07] MEDS: Fentanyl CADD 100 ML IV SCH (20:25)
[2020-12-07] MEDS: Acetaminophen 325 MG TAB PO PRN (22:51)
[2020-12-08 02:56] LABS: #Eosinphils 0.1 thou/uL (0.0-0.7); #Lymphocytes 0.5 thou/uL (1.20-3.40); #Monocytes 0.5 thou/uL (0.11-0.59); #Neutrophils 8.1 thou/uL (1.40-6.50); %Basophils 0.1 % (0.0-1.0); %Eosinophils 0.6 % (0.0-10.0); %Lymphocytes 5.8 % (21.0-51.0); %Neutrophils 88.5 % (42.0-75.0); Hemoglobin 7.9 g/dL (12.0-16.0); Mean Corpuscular HGB CONC 29.9 g/dL (32.0-36.0); Mean Corpuscular Hemoglobin 22.5 pg (27.0-31.0); Mean Corpuscular Volume 75.3 fL (78.0-98.0); Mean Platelet Volume 9.2 fL (7.4-10.4); Platelet Count 277 thou/uL (130-400); RBC Distribution Width 26.1 % (11.5-14.5); Red Blood Cell (RBC) Count 3.53 mill/uL (4.20-5.40); White Blood Cell (WBC) Count 9.1 thou/uL (4.8-10.8)
[2020-12-08] MEDS: Acetaminophen 325 MG TAB PO PRN ×2 (03:22→20:23)
[2020-12-08 03:36] LABS: Anion Gap 10 mmol/L (10-20); BUN (Urea Nitrogen) 32 mg/dL (7.0-18.7); Calc. Creatinine Clearance 0 mL/min (70-130); Calcium 9.5 mg/dL (7.8-10.44); Carbon Dioxide 35 mmol/L (22-29); Chloride 106 mmol/L (98-107); Glucose 200 mg/dL (70-105); Potassium 3.8 mmol/L (3.5-5.1); Sodium 147 mmol/L (136-145)
[2020-12-08] MEDS: HumaLOG 300 UNITS/3 ML VIAL SC PRN ×4 (03:53→21:52)
[2020-12-08] MEDS: GUAIFENESIN SF SOLN 200 MG/10 ML UDCUP PO SCH ×6 (03:54→23:14)
[2020-12-08] MEDS: methylPREDNISolone Sod Succ 40 MG VIAL IVP SCH ×3 (05:04→21:43)
[2020-12-08] MEDS: Meropenem 2 GM, Admixture Fee 1 EACH in Sodium Chloride 0.9% 100 ML IVPB SCH ×3 (05:28→21:40)
[2020-12-08] MEDS: Metoprolol Tartrate 25 MG TAB PER TUBE SCH ×2 (09:40→20:00)
[2020-12-08] MEDS: Ferrous Gluconate 324 MG TAB PO SCH (09:40)
[2020-12-08] MEDS: Enoxaparin Sodium 40 MG/0.4 ML SYRINGE SC SCH ×2 (09:41→20:00)
[2020-12-08] MEDS ORDERED: Fentanyl CADD 100 ML ONE (21:26)
[2020-12-09] MEDS: Acetaminophen 650 MG/20.3 ML UDCUP PO PRN ×2 (00:32→05:10)
[2020-12-09] MEDS: GUAIFENESIN SF SOLN 200 MG/10 ML UDCUP PO SCH ×6 (03:13→23:57)
[2020-12-09 03:23] LABS: #Lymphocytes 0.6 thou/uL (1.20-3.40); #Monocytes 0.4 thou/uL (0.11-0.59); #Neutrophils 9.2 thou/uL (1.40-6.50); %Basophils 0.1 % (0.0-1.0); %Eosinophils 0.3 % (0.0-10.0); %Lymphocytes 6.3 % (21.0-51.0); %Monocytes 3.4 % (0.0-10.0); %Neutrophils 89.9 % (42.0-75.0); Hemoglobin 7.5 g/dL (12.0-16.0); Mean Corpuscular HGB CONC 29.5 g/dL (32.0-36.0); Mean Corpuscular Hemoglobin 22.6 pg (27.0-31.0); Mean Corpuscular Volume 76.6 fL (78.0-98.0); Mean Platelet Volume 9.7 fL (7.4-10.4); Platelet Count 258 thou/uL (130-400); RBC Distribution Width 26.1 % (11.5-14.5); Red Blood Cell (RBC) Count 3.32 mill/uL (4.20-5.40); White Blood Cell (WBC) Count 10.2 thou/uL (4.8-10.8)
[2020-12-09 03:27] LABS: Anion Gap 11 mmol/L (10-20); BUN (Urea Nitrogen) 33 mg/dL (7.0-18.7); Calc. Creatinine Clearance 301 mL/min (70-130); Calcium 9.3 mg/dL (7.8-10.44); Carbon Dioxide 35 mmol/L (22-29); Chloride 106 mmol/L (98-107); Glucose 234 mg/dL (70-105); Potassium 3.9 mmol/L (3.5-5.1); Sodium 148 mmol/L (136-145)
[2020-12-09] MEDS: HumaLOG 300 UNITS/3 ML VIAL SC PRN ×3 (03:40→21:44)
[2020-12-09] MEDS: methylPREDNISolone Sod Succ 40 MG VIAL IVP SCH ×3 (05:10→21:38)
[2020-12-09] MEDS: Meropenem 2 GM, Admixture Fee 1 EACH in Sodium Chloride 0.9% 100 ML IVPB SCH ×3 (05:43→21:38)
[2020-12-09] MEDS: Ferrous Gluconate 324 MG TAB PO SCH (07:48)
[2020-12-09] MEDS: Enoxaparin Sodium 40 MG/0.4 ML SYRINGE SC SCH ×2 (08:17→20:12)
[2020-12-09] MEDS: Metoprolol Tartrate 25 MG TAB PER TUBE SCH (08:17)
[2020-12-09] MEDS: Ondansetron PF 4 MG/2 ML Vial IVP PRN ×2 (17:15→23:50)
[2020-12-09] MEDS ORDERED: Bisacodyl 10 MG SUPP PR SCH (18:00)
[2020-12-09] MEDS: Famotidine 20 MG TAB PER TUBE SCH (20:12)
[2020-12-09] MEDS ORDERED: Fentanyl CADD 100 ML ONE (22:01)
[2020-12-10] MEDS: GUAIFENESIN SF SOLN 200 MG/10 ML UDCUP PO SCH ×5 (04:07→20:29)
[2020-12-10 04:30] LABS: #Lymphocytes 0.6 thou/uL (1.20-3.40); #Monocytes 0.3 thou/uL (0.11-0.59); #Neutrophils 11.8 thou/uL (1.40-6.50); %Eosinophils 0.1 % (0.0-10.0); %Lymphocytes 4.5 % (21.0-51.0); %Monocytes 2.6 % (0.0-10.0); %Neutrophils 92.8 % (42.0-75.0); Hemoglobin 7.1 g/dL (12.0-16.0); Mean Corpuscular HGB CONC 27.9 g/dL (32.0-36.0); Mean Corpuscular Hemoglobin 21.8 pg (27.0-31.0); Mean Corpuscular Volume 78.1 fL (78.0-98.0); Mean Platelet Volume 8.4 fL (7.4-10.4); Platelet Count 270 thou/uL (130-400); RBC Distribution Width 26.4 % (11.5-14.5); Red Blood Cell (RBC) Count 3.28 mill/uL (4.20-5.40); White Blood Cell (WBC) Count 12.7 thou/uL (4.8-10.8)
[2020-12-10 04:48] LABS: BUN (Urea Nitrogen) 32 mg/dL (7.0-18.7); Calc. Creatinine Clearance 0 mL/min (70-130); Calcium 9.4 mg/dL (7.8-10.44); Glucose 178 mg/dL (70-105)
[2020-12-10 04:58] LABS: Chloride 108 mmol/L (98-107); Potassium 3.8 mmol/L (3.5-5.1); Sodium 152 mmol/L (136-145)
[2020-12-10 05:01] LABS: Anion Gap 14 mmol/L (10-20); Carbon Dioxide 34 mmol/L (22-29)
[2020-12-10] MEDS: methylPREDNISolone Sod Succ 40 MG VIAL IVP SCH ×3 (05:34→21:39)
[2020-12-10] MEDS: HumaLOG 300 UNITS/3 ML VIAL SC PRN ×3 (05:37→17:00)
[2020-12-10] MEDS: Meropenem 2 GM, Admixture Fee 1 EACH in Sodium Chloride 0.9% 100 ML IVPB SCH ×3 (05:55→21:39)
[2020-12-10] MEDS: Famotidine 20 MG TAB PER TUBE SCH ×2 (08:53→20:29)
[2020-12-10] MEDS: Ferrous Gluconate 324 MG TAB PO SCH (08:53)
[2020-12-10] MEDS: Enoxaparin Sodium 40 MG/0.4 ML SYRINGE SC SCH ×2 (08:54→20:29)
[2020-12-11] MEDS: GUAIFENESIN SF SOLN 200 MG/10 ML UDCUP PO SCH ×7 (00:06→23:25)
[2020-12-11] MEDS ORDERED: Fentanyl CADD 100 ML ONE (01:30)
[2020-12-11 05:47] LABS: Anion Gap 14 mmol/L (10-20); BUN (Urea Nitrogen) 31 mg/dL (7.0-18.7); Calc. Creatinine Clearance 330 mL/min (70-130); Calcium 9.5 mg/dL (7.8-10.44); Carbon Dioxide 37 mmol/L (22-29); Chloride 110 mmol/L (98-107); Glucose 187 mg/dL (70-105); Potassium 3.6 mmol/L (3.5-5.1); Sodium 157 mmol/L (136-145)
[2020-12-11] MEDS: methylPREDNISolone Sod Succ 40 MG VIAL IVP SCH ×3 (05:49→21:36)
[2020-12-11] MEDS: Meropenem 2 GM, Admixture Fee 1 EACH in Sodium Chloride 0.9% 100 ML IVPB SCH ×3 (05:49→21:36)
[2020-12-11 05:51] LABS: #Lymphocytes 0.6 thou/uL (1.20-3.40); #Monocytes 0.5 thou/uL (0.11-0.59); #Neutrophils 10.1 thou/uL (1.40-6.50); %Basophils 0.2 % (0.0-1.0); %Eosinophils 0.2 % (0.0-10.0); %Lymphocytes 5.4 % (21.0-51.0); %Monocytes 4.4 % (0.0-10.0); %Neutrophils 89.7 % (42.0-75.0); Hemoglobin 7.4 g/dL (12.0-16.0); Mean Corpuscular HGB CONC 28.6 g/dL (32.0-36.0); Mean Corpuscular Hemoglobin 22.8 pg (27.0-31.0); Mean Corpuscular Volume 79.6 fL (78.0-98.0); Mean Platelet Volume 12.5 fL (7.4-10.4); Platelet Count 288 thou/uL (130-400); RBC Distribution Width 26.2 % (11.5-14.5); Red Blood Cell (RBC) Count 3.26 mill/uL (4.20-5.40); White Blood Cell (WBC) Count 11.3 thou/uL (4.8-10.8)
[2020-12-11] MEDS: Dextrose 5% in Water 1,000 ML IV SCH ×3 (05:51→23:25)
[2020-12-11] MEDS: HumaLOG 300 UNITS/3 ML VIAL SC PRN ×3 (05:51→21:40)
[2020-12-11 05:52] LABS: Anisocytosis MODERATE=16-30 cells (100X) (0-5/hpf); Hypochromia SLIGHT = 6-15 cells (100X) (0-5/hpf); Large Platelets SLIGHT; MDiff Complete? YES; Microcytosis SLIGHT = 6-15 cells (100X) (0-5/hpf); Platelet Morphology Comment Appears Adequate
[2020-12-11] MEDS: Ferrous Gluconate 324 MG TAB PO SCH (09:12)
[2020-12-11] MEDS: Enoxaparin Sodium 40 MG/0.4 ML SYRINGE SC SCH ×2 (09:13→20:40)
[2020-12-11] MEDS: Famotidine 20 MG TAB PER TUBE SCH ×2 (09:13→20:40)
[2020-12-12] MEDS: GUAIFENESIN SF SOLN 200 MG/10 ML UDCUP PO SCH ×5 (03:31→20:24)
[2020-12-12 04:59] LABS: Anion Gap 10 mmol/L (10-20); BUN (Urea Nitrogen) 27 mg/dL (7.0-18.7); Calc. Creatinine Clearance 349 mL/min (70-130); Calcium 9.3 mg/dL (7.8-10.44); Carbon Dioxide 37 mmol/L (22-29); Chloride 109 mmol/L (98-107); Glucose 202 mg/dL (70-105); Potassium 3.6 mmol/L (3.5-5.1); Sodium 152 mmol/L (136-145)
[2020-12-12] MEDS: HumaLOG 300 UNITS/3 ML VIAL SC PRN ×2 (05:11→09:40)
[2020-12-12] MEDS: methylPREDNISolone Sod Succ 40 MG VIAL IVP SCH (05:11)
[2020-12-12 05:28] LABS: #Lymphocytes 0.8 thou/uL (1.20-3.40); #Monocytes 0.5 thou/uL (0.11-0.59); #Neutrophils 7.7 thou/uL (1.40-6.50); %Basophils 0.1 % (0.0-1.0); %Eosinophils 0.5 % (0.0-10.0); %Lymphocytes 9.2 % (21.0-51.0); %Monocytes 5.7 % (0.0-10.0); %Neutrophils 84.5 % (42.0-75.0); Hemoglobin 7.4 g/dL (12.0-16.0); Mean Corpuscular HGB CONC 27.9 g/dL (32.0-36.0); Mean Corpuscular Hemoglobin 22.2 pg (27.0-31.0); Mean Corpuscular Volume 79.6 fL (78.0-98.0); Mean Platelet Volume 12.7 fL (7.4-10.4); Platelet Count 279 thou/uL (130-400); RBC Distribution Width 26.5 % (11.5-14.5); Red Blood Cell (RBC) Count 3.32 mill/uL (4.20-5.40); White Blood Cell (WBC) Count 9.2 thou/uL (4.8-10.8)
[2020-12-12] MEDS: Meropenem 2 GM, Admixture Fee 1 EACH in Sodium Chloride 0.9% 100 ML IVPB SCH (06:08)
[2020-12-12] MEDS: Ferrous Gluconate 324 MG TAB PO SCH (08:48)
[2020-12-12] MEDS: Enoxaparin Sodium 40 MG/0.4 ML SYRINGE SC SCH ×2 (08:49→20:24)
[2020-12-12] MEDS: Famotidine 20 MG TAB PER TUBE SCH ×2 (08:49→20:24)
[2020-12-12] MEDS: Morphine 2 MG/ML VIAL SLOW IVP PRN ×2 (09:44→20:33)
[2020-12-12] MEDS: Dextrose 5% in Water 1,000 ML IV SCH (16:22)
[2020-12-13] MEDS: GUAIFENESIN SF SOLN 200 MG/10 ML UDCUP PO SCH ×6 (01:14→21:37)
[2020-12-13] MEDS ORDERED: GUAIFENESIN SF SOLN 200 MG/10 ML UDCUP PO SCH (01:15)
[2020-12-13] MEDS: Morphine 2 MG/ML VIAL SLOW IVP PRN (02:29)
[2020-12-13] MEDS ORDERED: Metoprolol Tartrate 5 MG/5 ML VIAL IVP SCH (02:45)
[2020-12-13] MEDS ORDERED: Sodium Chloride 0.9% 500 ML IV SCH (04:30)
[2020-12-13] MEDS ORDERED: Labetalol HCl 100 MG/20 ML VIAL SLOW IVP SCH (04:30)
[2020-12-13 06:13] LABS: Hemoglobin 8.8 g/dL (12.0-16.0); Mean Corpuscular HGB CONC 28.6 g/dL (32.0-36.0); Mean Corpuscular Hemoglobin 22.9 pg (27.0-31.0); Mean Platelet Volume 12.2 fL (7.4-10.4); Platelet Count 345 thou/uL (130-400); RBC Distribution Width 27.1 % (11.5-14.5); Red Blood Cell (RBC) Count 3.83 mill/uL (4.20-5.40); White Blood Cell (WBC) Count 14.2 thou/uL (4.8-10.8)
[2020-12-13 06:17] LABS: Anion Gap 11 mmol/L (10-20); BUN (Urea Nitrogen) 22 mg/dL (7.0-18.7); Calc. Creatinine Clearance 292 mL/min (70-130); Calcium 9.3 mg/dL (7.8-10.44); Carbon Dioxide 37 mmol/L (22-29); Chloride 109 mmol/L (98-107); Glucose 165 mg/dL (70-105); Potassium 3.7 mmol/L (3.5-5.1); Sodium 153 mmol/L (136-145)
[2020-12-13 06:38] LABS: Anisocytosis MODERATE=16-30 cells (100X) (0-5/hpf); Band 4 % (5-11); Hypochromia SLIGHT = 6-15 cells (100X) (0-5/hpf); Lymphocytes 9 % (21-51); MDiff Complete? YES; Microcytosis SLIGHT = 6-15 cells (100X) (0-5/hpf); Monocytes 7 % (0-10); Neutrophil 80 % (42-75); Stomatocytes SLIGHT = 2-5 cells (100X) (0-1/hpf)
[2020-12-13] MEDS ORDERED: Norepinephrine 8 MG/0.9% NS 250 ML ONE (07:34)
[2020-12-13] MEDS ORDERED: Dextrose 5% in Water 1,000 ML IV SCH (08:00)
[2020-12-13] MEDS ORDERED: Norepinephrine 8 MG/0.9% NS 250 ML IVPB SCH (08:00)
[2020-12-13 08:17] LABS: CO2 Tension 45.1 mmHg (35.0-45.0); O2 Tension (PaO2), arterial 146.6 mmHg (80.0-100.0); pH, Arterial 7.47 (7.35-7.45)
[2020-12-13 08:18] LABS: Actual Bicarbonate (HCO3a) 32.2 mEq/L (22-28); Base Excess (BEa) 7.7 mEq/L (-2.0 to +3.0); Calcium, Ionized (arterial) 1.28 mmol/L (1.12-1.30); Carboxyhemoglobin (COHb) 1.3 gm% (0.0-3.0); Hemoglobin (Hb) 8.8 g/dL (12.0-16.0); Potassium - ABG Lab 3.32 mmol/L (3.70-5.30)
[2020-12-13 08:41] LABS: ALV-art Gradient 510.025 mmHg (0-20); Puncture Site RRA
[2020-12-13] MEDS: Ferrous Gluconate 324 MG TAB PO SCH (10:14)
[2020-12-13] MEDS: Famotidine 20 MG TAB PER TUBE SCH ×2 (10:18→21:37)
[2020-12-13] MEDS: methylPREDNISolone Sod Succ 40 MG VIAL IVP SCH (11:18)
[2020-12-13] MEDS: Enoxaparin Sodium 40 MG/0.4 ML SYRINGE SC SCH ×2 (11:18→21:37)
[2020-12-13] MEDS ORDERED: Calcium Chloride 1 GM/10 ML Abboject SYRINGE ONE (12:20)
[2020-12-13] MEDS ORDERED: EPINEPHrine 1 MG/10 ML Abboject SYRINGE ONE (12:20)
[2020-12-13] MEDS ORDERED: Sodium Bicarb 50 MEQ/50 ML Abboject 8.4% SYRINGE ONE (12:20)
[2020-12-13] MEDS: Lactated Ringer's 1,000 ML IV SCH (12:37)
[2020-12-13] MEDS ORDERED: Propofol 500 MG/50 ML VIAL ONE (16:26)
[2020-12-13] MEDS ORDERED: Propofol 1,000 MG/100 ML VIAL IV ONE ×2 (16:28→21:43)
[2020-12-13] MEDS ORDERED: Fentanyl BOLUS 250 ML IVPB PRN (16:45)
[2020-12-13] MEDS ORDERED: Morphine 2 MG/ML VIAL SLOW IVP PRN (16:45)
[2020-12-13] MEDS ORDERED: Propofol BOLUS 1,000 MG/100 ML VIAL IV PRN (16:45)
[2020-12-13] MEDS ORDERED: Lorazepam 2 MG/ML VIAL SLOW IVP PRN (16:45)
[2020-12-13] MEDS ORDERED: DISCONTINUE PREVIOUS NARCOTIC PAIN MEDICATIONS AND BENZODIAZEPINES FS SCH (16:45)
[2020-12-13] MEDS ORDERED: Fentanyl CADD 100 ML IV SCH (16:45)
[2020-12-13] MEDS: Propofol 1,000 MG/100 ML VIAL IV PRN ×2 (17:20→21:45)
[2020-12-14] MEDS: GUAIFENESIN SF SOLN 200 MG/10 ML UDCUP PO SCH ×7 (01:38→23:17)
[2020-12-14] MEDS ORDERED: Propofol 1,000 MG/100 ML VIAL IV ONE ×4 (02:33→19:20)
[2020-12-14] MEDS: Propofol 1,000 MG/100 ML VIAL IV PRN ×4 (02:35→19:22)
[2020-12-14 04:46] LABS: Anion Gap 14 mmol/L (10-20); BUN (Urea Nitrogen) 25 mg/dL (7.0-18.7); Calc. Creatinine Clearance 278 mL/min (70-130); Calcium 8.9 mg/dL (7.8-10.44); Carbon Dioxide 35 mmol/L (22-29); Chloride 111 mmol/L (98-107); Glucose 136 mg/dL (70-105); Sodium 157 mmol/L (136-145)
[2020-12-14 04:49] LABS: Potassium 2.7 mmol/L (3.5-5.1)
[2020-12-14] MEDS ORDERED: Potassium Chloride 40 MEQ in Sodium Chloride 0.9% 250 ML 250 ML IVPB SCH (05:15)
[2020-12-14] MEDS: Potassium Chloride 40 MEQ in Premix Bag 1 BAG IVPB SCH ×2 (05:35→08:52)
[2020-12-14] MEDS: Lactated Ringer's 1,000 ML IV SCH (05:36)
[2020-12-14 08:01] LABS: Actual Bicarbonate (HCO3a) 35.4 mEq/L (22-28); Base Excess (BEa) 12.2 mEq/L (-2.0 to +3.0); CO2 Tension 40.3 mmHg (35.0-45.0); O2 Tension (PaO2), arterial 113.8 mmHg (80.0-100.0); pH, Arterial 7.56 (7.35-7.45)
[2020-12-14 08:02] LABS: ALV-art Gradient 334.925 mmHg (0-20); Analyzer IN Cardio OR; Calcium, Ionized (arterial) 1.19 mmol/L (1.12-1.30); Hemoglobin (Hb) 7.2 g/dL (12.0-16.0); Potassium - ABG Lab 2.73 mmol/L (3.70-5.30); Puncture Site RRA
[2020-12-14] MEDS: Ferrous Gluconate 324 MG TAB PO SCH ×2 (08:44→09:42)
[2020-12-14] MEDS: methylPREDNISolone Sod Succ 40 MG VIAL IVP SCH (08:44)
[2020-12-14] MEDS ORDERED: Enoxaparin Sodium 40 MG/0.4 ML SYRINGE ONE (08:47)
[2020-12-14] MEDS: Enoxaparin Sodium 40 MG/0.4 ML SYRINGE SC SCH ×2 (08:48→20:36)
[2020-12-14] MEDS ORDERED: Famotidine 20 MG TAB ONE (08:54)
[2020-12-14] MEDS: Famotidine 20 MG TAB PER TUBE SCH ×3 (08:56→23:17)
[2020-12-14] MEDS: Dextrose 5% in Water 1,000 ML IV SCH ×2 (09:43→20:37)
[2020-12-14 18:35] LABS: Anion Gap 10 mmol/L (10-20); BUN (Urea Nitrogen) 23 mg/dL (7.0-18.7); Calc. Creatinine Clearance 251 mL/min (70-130); Calcium 8.4 mg/dL (7.8-10.44); Carbon Dioxide 36 mmol/L (22-29); Chloride 114 mmol/L (98-107); Glucose 116 mg/dL (70-105); Magnesium 1.5 mg/dL (1.6-2.6); Potassium 3.2 mmol/L (3.5-5.1); Sodium 157 mmol/L (136-145)
[2020-12-14] MEDS ORDERED: Potassium Chloride 40 MEQ in Premix Bag 1 BAG IVPB SCH (23:30)
[2020-12-15] MEDS: GUAIFENESIN SF SOLN 200 MG/10 ML UDCUP PO SCH ×6 (02:44→20:21)
[2020-12-15 06:42] LABS: Anion Gap 11 mmol/L (10-20); BUN (Urea Nitrogen) 21 mg/dL (7.0-18.7); Calc. Creatinine Clearance 221 mL/min (70-130); Calcium 8.3 mg/dL (7.8-10.44); Carbon Dioxide 34 mmol/L (22-29); Chloride 114 mmol/L (98-107); Glucose 173 mg/dL (70-105); Potassium 3.2 mmol/L (3.5-5.1); Sodium 156 mmol/L (136-145)
[2020-12-15] MEDS ORDERED: Magnesium 2 GM/50 ML 2 GM in Premix Bag 1 BAG IVPB SCH (06:45)
[2020-12-15] MEDS: Potassium Chloride 20 MEQ in Premix Bag 1 BAG IVPB SCH ×2 (08:44→11:51)
[2020-12-15] MEDS: Ferrous Gluconate 324 MG TAB PO SCH (08:44)
[2020-12-15] MEDS: methylPREDNISolone Sod Succ 40 MG VIAL IVP SCH (08:51)
[2020-12-15] MEDS: Famotidine 20 MG TAB PER TUBE SCH ×2 (09:59→20:20)
[2020-12-15] MEDS: Enoxaparin Sodium 40 MG/0.4 ML SYRINGE SC SCH ×2 (10:00→20:20)
[2020-12-15] MEDS: Dextrose 5% in Water 1,000 ML IV SCH (11:51)
[2020-12-16] MEDS ORDERED: Acetaminophen 325 MG TAB ONE ×3 (00:35→14:22)
[2020-12-16] MEDS: GUAIFENESIN SF SOLN 200 MG/10 ML UDCUP PO SCH ×6 (00:42→21:24)
[2020-12-16] MEDS: Acetaminophen 325 MG TAB PO PRN ×3 (00:42→14:35)
[2020-12-16] MEDS: Dextrose 5% in Water 1,000 ML IV SCH ×2 (05:49→14:53)
[2020-12-16 07:21] LABS: Anion Gap 11 mmol/L (10-20); BUN (Urea Nitrogen) 19 mg/dL (7.0-18.7); Calc. Creatinine Clearance 214 mL/min (70-130); Calcium 7.9 mg/dL (7.8-10.44); Carbon Dioxide 31 mmol/L (22-29); Chloride 114 mmol/L (98-107); Glucose 143 mg/dL (70-105); Potassium 2.9 mmol/L (3.5-5.1); Sodium 153 mmol/L (136-145)
[2020-12-16] MEDS: Ferrous Gluconate 324 MG TAB PO SCH (08:49)
[2020-12-16] MEDS ORDERED: Enoxaparin Sodium 40 MG/0.4 ML SYRINGE ONE (08:53)
[2020-12-16] MEDS ORDERED: Famotidine 20 MG TAB ONE (08:55)
[2020-12-16] MEDS: Enoxaparin Sodium 40 MG/0.4 ML SYRINGE SC SCH ×2 (08:56→21:23)
[2020-12-16] MEDS: Famotidine 20 MG TAB PER TUBE SCH ×2 (08:57→21:24)
[2020-12-16] MEDS: methylPREDNISolone Sod Succ 40 MG VIAL IVP SCH (08:57)
[2020-12-16] MEDS ORDERED: Sodium Chloride 0.9% 20 ML ONE (08:58)
[2020-12-16] MEDS: Potassium Chloride 40 MEQ in Premix Bag 1 BAG IVPB SCH ×2 (10:30→14:54)
[2020-12-16] MEDS: HumaLOG 300 UNITS/3 ML VIAL SC PRN ×2 (10:35→17:07)
[2020-12-17] MEDS: GUAIFENESIN SF SOLN 200 MG/10 ML UDCUP PO SCH ×6 (01:16→20:12)
[2020-12-17] MEDS: Dextrose 5% in Water 1,000 ML IV SCH ×2 (03:36→15:53)
[2020-12-17 05:50] LABS: Anion Gap 11 mmol/L (10-20); BUN (Urea Nitrogen) 16 mg/dL (7.0-18.7); Calc. Creatinine Clearance 222 mL/min (70-130); Calcium 8.1 mg/dL (7.8-10.44); Carbon Dioxide 29 mmol/L (22-29); Chloride 111 mmol/L (98-107); Glucose 133 mg/dL (70-105); Sodium 148 mmol/L (136-145)
[2020-12-17 05:55] LABS: Potassium 2.7 mmol/L (3.5-5.1)
[2020-12-17] MEDS ORDERED: Potassium Chloride 40 MEQ in Premix Bag 1 BAG IVPB SCH ×3 (06:30→23:30)
[2020-12-17] MEDS: Acetaminophen 650 MG/20.3 ML UDCUP PO PRN ×3 (09:04→20:11)
[2020-12-17] MEDS: methylPREDNISolone Sod Succ 40 MG VIAL IVP SCH (09:04)
[2020-12-17] MEDS: Famotidine 20 MG TAB PER TUBE SCH ×2 (09:04→20:12)
[2020-12-17] MEDS: Enoxaparin Sodium 40 MG/0.4 ML SYRINGE SC SCH ×2 (09:04→20:12)
[2020-12-17] MEDS: Ferrous Gluconate 324 MG TAB PO SCH (09:04)
[2020-12-17 09:35] LABS: Magnesium 1.5 mg/dL (1.6-2.6); Phosphorus 2.3 mg/dL (2.3-4.7)
[2020-12-17] MEDS: HumaLOG 300 UNITS/3 ML VIAL SC PRN (16:14)
[2020-12-18] MEDS: GUAIFENESIN SF SOLN 200 MG/10 ML UDCUP PO SCH ×6 (00:23→20:10)
[2020-12-18] MEDS: Acetaminophen 650 MG/20.3 ML UDCUP PO PRN ×5 (00:30→17:00)
[2020-12-18 05:15] LABS: Anion Gap 11 mmol/L (10-20); BUN (Urea Nitrogen) 15 mg/dL (7.0-18.7); Calc. Creatinine Clearance 212 mL/min (70-130); Calcium 8.4 mg/dL (7.8-10.44); Carbon Dioxide 26 mmol/L (22-29); Chloride 110 mmol/L (98-107); Glucose 132 mg/dL (70-105); Potassium 3.2 mmol/L (3.5-5.1); Sodium 144 mmol/L (136-145)
[2020-12-18] MEDS: Dextrose 5% in Water 1,000 ML IV SCH ×2 (05:47→20:09)
[2020-12-18] MEDS ORDERED: Potassium Chloride 40 MEQ in Premix Bag 1 BAG IVPB SCH (06:00)
[2020-12-18] MEDS ORDERED: Magnesium 2 GM/50 ML 2 GM in Premix Bag 1 BAG IVPB SCH (07:30)
[2020-12-18] MEDS: Enoxaparin Sodium 40 MG/0.4 ML SYRINGE SC SCH ×2 (09:53→20:10)
[2020-12-18] MEDS: Ferrous Gluconate 324 MG TAB PO SCH (09:54)
[2020-12-18] MEDS: Famotidine 20 MG TAB PER TUBE SCH ×2 (09:54→20:10)
[2020-12-18] MEDS: methylPREDNISolone Sod Succ 40 MG VIAL IVP SCH (09:55)
[2020-12-18 14:44] LABS: Potassium 3.6 mmol/L (3.5-5.1)
[2020-12-18] MEDS: HumaLOG 300 UNITS/3 ML VIAL SC PRN (17:15)
[2020-12-19] MEDS: GUAIFENESIN SF SOLN 200 MG/10 ML UDCUP PO SCH ×6 (00:19→20:42)
[2020-12-19 04:48] LABS: Anion Gap 11 mmol/L (10-20); BUN (Urea Nitrogen) 14 mg/dL (7.0-18.7); Calc. Creatinine Clearance 240 mL/min (70-130); Calcium 8.2 mg/dL (7.8-10.44); Carbon Dioxide 26 mmol/L (22-29); Chloride 109 mmol/L (98-107); Glucose 151 mg/dL (70-105); Magnesium 1.5 mg/dL (1.6-2.6); Sodium 143 mmol/L (136-145)
[2020-12-19] MEDS ORDERED: Potassium Chloride 40 MEQ in Premix Bag 1 BAG IVPB SCH (05:30)
[2020-12-19] MEDS ORDERED: Magnesium 2 GM/50 ML 2 GM in Premix Bag 1 BAG IVPB SCH ×2 (05:30→08:00)
[2020-12-19] MEDS: HumaLOG 300 UNITS/3 ML VIAL SC PRN ×2 (09:36→16:02)
[2020-12-19] MEDS: Famotidine 20 MG TAB PER TUBE SCH ×2 (09:37→20:42)
[2020-12-19] MEDS: Acetaminophen 650 MG/20.3 ML UDCUP PO PRN ×3 (09:38→20:49)
[2020-12-19] MEDS: methylPREDNISolone Sod Succ 40 MG VIAL IVP SCH (09:38)
[2020-12-19] MEDS: Enoxaparin Sodium 40 MG/0.4 ML SYRINGE SC SCH ×2 (09:38→20:43)
[2020-12-19] MEDS: Ferrous Gluconate 324 MG TAB PO SCH (09:38)
[2020-12-19] MEDS: Dextrose 5% in Water 1,000 ML IV SCH ×2 (12:35→23:28)
[2020-12-19 14:18] LABS: Potassium 3.6 mmol/L (3.5-5.1)
[2020-12-19] MEDS: Scopolamine 1.5 mg/72 hour Patch TOP SCH (16:01)
[2020-12-20] MEDS: GUAIFENESIN SF SOLN 200 MG/10 ML UDCUP PO SCH ×4 (01:56→15:13)
[2020-12-20 04:35] LABS: Anion Gap 12 mmol/L (10-20); BUN (Urea Nitrogen) 14 mg/dL (7.0-18.7); Calc. Creatinine Clearance 254 mL/min (70-130); Calcium 8.4 mg/dL (7.8-10.44); Carbon Dioxide 24 mmol/L (22-29); Chloride 106 mmol/L (98-107); Glucose 125 mg/dL (70-105); Magnesium 1.8 mg/dL (1.6-2.6); Sodium 139 mmol/L (136-145)
[2020-12-20] MEDS: Potassium Chloride 40 MEQ in Premix Bag 1 BAG IVPB SCH (06:24)
[2020-12-20] MEDS ORDERED: Magnesium 2 GM/50 ML 2 GM in Premix Bag 1 BAG IVPB SCH (06:30)
[2020-12-20] MEDS: Ferrous Gluconate 324 MG TAB PO SCH (08:09)
[2020-12-20] MEDS: Enoxaparin Sodium 40 MG/0.4 ML SYRINGE SC SCH ×2 (08:09→20:38)
[2020-12-20] MEDS: Famotidine 20 MG TAB PER TUBE SCH ×2 (08:10→20:39)
[2020-12-20] MEDS: methylPREDNISolone Sod Succ 40 MG VIAL IVP SCH (08:10)
[2020-12-20] MEDS: Dextrose 5% in Water 1,000 ML IV SCH ×2 (12:48→16:50)
[2020-12-20 15:59] LABS: Potassium 3.6 mmol/L (3.5-5.1)
[2020-12-20] MEDS ORDERED: GUAIFENESIN SF SOLN 200 MG/10 ML UDCUP PO PRN (16:32)
[2020-12-20] MEDS: HumaLOG 300 UNITS/3 ML VIAL SC PRN (20:37)
[2020-12-21 04:29] LABS: Anion Gap 11 mmol/L (10-20); BUN (Urea Nitrogen) 11 mg/dL (7.0-18.7); Calc. Creatinine Clearance 249 mL/min (70-130); Calcium 8.5 mg/dL (7.8-10.44); Carbon Dioxide 25 mmol/L (22-29); Chloride 106 mmol/L (98-107); Glucose 129 mg/dL (70-105); Potassium 3.1 mmol/L (3.5-5.1); Sodium 139 mmol/L (136-145)
[2020-12-21] MEDS: Potassium Chloride 40 MEQ in Premix Bag 1 BAG IVPB SCH (06:28)
[2020-12-21] MEDS: Famotidine 20 MG TAB PER TUBE SCH (08:30)
[2020-12-21] MEDS: Potassium Chloride 20 MEQ in Premix Bag 1 BAG IVPB SCH ×2 (08:30→09:54)
[2020-12-21] MEDS: methylPREDNISolone Sod Succ 40 MG VIAL IVP SCH (08:31)
[2020-12-21] MEDS: Ferrous Gluconate 324 MG TAB PO SCH (08:31)
[2020-12-21] MEDS: Enoxaparin Sodium 40 MG/0.4 ML SYRINGE SC SCH (08:31)
[2020-12-21 09:20] LABS: Anisocytosis MODERATE=16-30 cells (100X) (0-5/hpf); Band 19 % (5-11); Eosinophils 2 % (0-10); Hemoglobin 6.5 g/dL (12.0-16.0); Lymphocytes 6 % (21-51); MDiff Complete? YES; Mean Corpuscular HGB CONC 31.7 g/dL (32.0-36.0); Mean Corpuscular Hemoglobin 26.1 pg (27.0-31.0); Mean Corpuscular Volume 82.4 fL (78.0-98.0); Mean Platelet Volume 11.6 fL (7.4-10.4); Monocytes 12 % (0-10); Neutrophil 60 % (42-75); Platelet Count 226 thou/uL (130-400); Platelet Morphology Comment Appears Adequate; Polychromasia SLIGHT = 2-3 cells (100X) (0-2/hpf); RBC Distribution Width 25.1 % (11.5-14.5); Reactive Lymphocytes 1 % (0-10); White Blood Cell (WBC) Count 10.8 thou/uL (4.8-10.8)
[2020-12-21 11:52] LABS: Hemoglobin 6.6 g/dL (12.0-16.0); Platelet Count 220 thou/uL (130-400)
[2020-12-21 12:18] LABS: Potassium 3.9 mmol/L (3.5-5.1)
[2020-12-21] MEDS: Dextrose 5% in Water 1,000 ML IV SCH (12:48)
[2020-12-21] MEDS: Pantoprazole 40 MG VIAL IVP SCH (21:54)
[2020-12-21] MEDS: Multivitamins, Adult 10 ML, Multitrace-4 NEONATAL 10 ML in D15W-AA 5% with Lytes 2,000 ML IV SCH (21:55)
[2020-12-21 22:47] LABS: INR-International Normal Ratio 1.3; Prothrombin Time 16.8 sec (12.0-14.7)
[2020-12-21 22:48] LABS: PTT 31.6 sec (22.9-36.1)
[2020-12-21 22:56] LABS: ALT (SGPT) 28 U/L (8-55); AST (SGOT) 37 U/L (5-34); Albumin 2.6 g/dL (3.5-5.0); Alkaline Phosphatase 93 U/L (40-110); Anion Gap 12 mmol/L (10-20); BUN (Urea Nitrogen) 13 mg/dL (7.0-18.7); Bilirubin, Total 0.9 mg/dL (0.2-1.2); Calc. Creatinine Clearance 249 mL/min (70-130); Calcium 8.8 mg/dL (7.8-10.44); Carbon Dioxide 25 mmol/L (22-29); Cardiac Risk 3.5 (Less than 4.5); Chloride 107 mmol/L (98-107); Cholesterol 107 mg/dl (< 200 Desired); Glucose 130 mg/dL (70-105); HDL Cholesterol 31 mg/dL (>60 Neg Risk); LDL Cholesterol, Calculated 54 mg/dL; Magnesium 1.7 mg/dL (1.6-2.6); Potassium 3.7 mmol/L (3.5-5.1); Protein, Total 6.6 g/dL (6.0-8.3); Sodium 140 mmol/L (136-145); Triglycerides 111 mg/dL (Less than 150)
[2020-12-22 04:29] LABS: INR-International Normal Ratio 1.3; PTT 31.1 sec (22.9-36.1); Prothrombin Time 16.5 sec (12.0-14.7)
[2020-12-22 04:30] LABS: #Eosinphils 0.1 thou/uL (0.0-0.7); #Neutrophils 9.1 thou/uL (1.40-6.50); %Eosinophils 0.9 % (0.0-10.0); %Monocytes 8.6 % (0.0-10.0); %Neutrophils 81.5 % (42.0-75.0); Hemoglobin 7.9 g/dL (12.0-16.0); Mean Corpuscular HGB CONC 31.5 g/dL (32.0-36.0); Mean Corpuscular Hemoglobin 25.7 pg (27.0-31.0); Mean Corpuscular Volume 81.7 fL (78.0-98.0); Mean Platelet Volume 11.3 fL (7.4-10.4); Platelet Count 266 thou/uL (130-400); Red Blood Cell (RBC) Count 3.06 mill/uL (4.20-5.40); White Blood Cell (WBC) Count 11.1 thou/uL (4.8-10.8)
[2020-12-22 04:45] LABS: ALT (SGPT) 30 U/L (8-55); AST (SGOT) 40 U/L (5-34); Albumin 2.6 g/dL (3.5-5.0); Alkaline Phosphatase 93 U/L (40-110); Anion Gap 15 mmol/L (10-20); BUN (Urea Nitrogen) 14 mg/dL (7.0-18.7); Bilirubin, Total 0.9 mg/dL (0.2-1.2); Calc. Creatinine Clearance 236 mL/min (70-130); Calcium 8.8 mg/dL (7.8-10.44); Carbon Dioxide 23 mmol/L (22-29); Cardiac Risk 3.5 (Less than 4.5); Chloride 106 mmol/L (98-107); Cholesterol 109 mg/dl (< 200 Desired); Globulin 4.1 g/dL (2.4-3.5); Glucose 155 mg/dL (70-105); HDL Cholesterol 31 mg/dL (>60 Neg Risk); LDL Cholesterol, Calculated 56 mg/dL; Magnesium 1.6 mg/dL (1.6-2.6); Phosphorus 2.9 mg/dL (2.3-4.7); Potassium 3.6 mmol/L (3.5-5.1); Protein, Total 6.7 g/dL (6.0-8.3); Sodium 140 mmol/L (136-145); Triglycerides 111 mg/dL (Less than 150)
[2020-12-22] MEDS ORDERED: Magnesium 2 GM/50 ML 2 GM in Premix Bag 1 BAG IVPB SCH (06:15)
[2020-12-22] MEDS: Ferrous Gluconate 324 MG TAB PO SCH (07:51)
[2020-12-22] MEDS: methylPREDNISolone Sod Succ 40 MG VIAL IVP SCH (07:51)
[2020-12-22] MEDS: Pantoprazole 40 MG VIAL IVP SCH ×2 (07:52→20:25)
[2020-12-22] MEDS: Dextrose 5% in Water 1,000 ML IV SCH (11:14)
[2020-12-22] MEDS: HumaLOG 300 UNITS/3 ML VIAL SC PRN ×3 (12:02→20:26)
[2020-12-22] MEDS: Scopolamine 1.5 mg/72 hour Patch TOP SCH (13:43)
[2020-12-22] MEDS ORDERED: Insulin Glargine 10 UNITS in Pre-Filled Syringe 1 EACH SC SCH (16:15)
[2020-12-22] MEDS ORDERED: Norepinephrine 8 MG/0.9% NS 250 ML IVPB SCH (18:30)
[2020-12-22] MEDS: Multivitamins, Adult 10 ML, Multitrace-4 NEONATAL 10 ML in D15W-AA 5% with Lytes 2,000 ML IV SCH (22:23)
[2020-12-23] MEDS: HumaLOG 300 UNITS/3 ML VIAL SC PRN ×4 (03:55→19:51)
[2020-12-23 03:58] LABS: #Eosinphils 0.1 thou/uL (0.0-0.7); #Lymphocytes 1.3 thou/uL (1.20-3.40); #Monocytes 0.9 thou/uL (0.11-0.59); %Eosinophils 1.1 % (0.0-10.0); %Monocytes 9.7 % (0.0-10.0); %Neutrophils 75.2 % (42.0-75.0); Hemoglobin 8.7 g/dL (12.0-16.0); Mean Corpuscular HGB CONC 30.9 g/dL (32.0-36.0); Mean Corpuscular Hemoglobin 25.6 pg (27.0-31.0); Mean Corpuscular Volume 82.8 fL (78.0-98.0); Mean Platelet Volume 10.6 fL (7.4-10.4); Platelet Count 301 thou/uL (130-400); RBC Distribution Width 22.9 % (11.5-14.5); Red Blood Cell (RBC) Count 3.39 mill/uL (4.20-5.40); White Blood Cell (WBC) Count 9.3 thou/uL (4.8-10.8)
[2020-12-23 04:18] LABS: Phosphorus 2.9 mg/dL (2.3-4.7)
[2020-12-23 04:21] LABS: ALT (SGPT) 37 U/L (8-55); AST (SGOT) 46 U/L (5-34); Albumin 2.6 g/dL (3.5-5.0); Alkaline Phosphatase 94 U/L (40-110); Anion Gap 12 mmol/L (10-20); BUN (Urea Nitrogen) 19 mg/dL (7.0-18.7); Bilirubin, Total 0.7 mg/dL (0.2-1.2); Calc. Creatinine Clearance 240 mL/min (70-130); Calcium 9.1 mg/dL (7.8-10.44); Carbon Dioxide 24 mmol/L (22-29); Cardiac Risk 3.5 (Less than 4.5); Chloride 107 mmol/L (98-107); Cholesterol 118 mg/dl (< 200 Desired); Globulin 4.3 g/dL (2.4-3.5); Glucose 212 mg/dL (70-105); HDL Cholesterol 34 mg/dL (>60 Neg Risk); LDL Cholesterol, Calculated 61 mg/dL; Magnesium 1.8 mg/dL (1.6-2.6); Potassium 3.5 mmol/L (3.5-5.1); Protein, Total 6.9 g/dL (6.0-8.3); Sodium 139 mmol/L (136-145); Triglycerides 113 mg/dL (Less than 150)
[2020-12-23] MEDS: Acetaminophen 650 MG/20.3 ML UDCUP PO PRN (06:05)
[2020-12-23] MEDS ORDERED: Magnesium 2 GM/50 ML 2 GM in Premix Bag 1 BAG IVPB SCH (06:15)
[2020-12-23] MEDS: Potassium Chloride 20 MEQ in Premix Bag 1 BAG IVPB SCH ×2 (08:11→10:08)
[2020-12-23] MEDS: methylPREDNISolone Sod Succ 40 MG VIAL IVP SCH (08:12)
[2020-12-23] MEDS: Pantoprazole 40 MG VIAL IVP SCH ×2 (08:12→19:37)
[2020-12-23] MEDS: Ferrous Gluconate 324 MG TAB PO SCH (08:13)
[2020-12-23] MEDS: Enoxaparin Sodium 40 MG/0.4 ML SYRINGE SC SCH ×2 (10:11→19:37)
[2020-12-23] MEDS: Insulin Glargine 10 UNITS in Pre-Filled Syringe 1 EACH SC SCH (10:20)
[2020-12-23] MEDS: Acetaminophen 325 MG TAB PO PRN (11:00)
[2020-12-23 17:01] LABS: Bilirubin Negative (Negative); Blood, Urine 1+ (Negative); Clarity Turbid (Clear); Glucose, Urine (Dipstick) Greater than 1000 mg/dL (Negative); Ketone, Urine Negative (Negative); Leukocyte 500 Leu/uL (Negative); Nitrite 1+ (Negative); Protein, Urine (Dipstick) 10 mg/dL (Neg-Trace); Specific Gravity, Urine 1.014 (1.002-1.036); Squamous Epithelial 0-3 HPF (0-3); Urobilinogen Normal mg/dL (Less than 2); WBC/HPF Greater than 50 HPF (0-3); pH, Urine 5.5 (5.0-9.0)
[2020-12-23 17:05] LABS: Bacteria/HPF 4+ HPF (None Seen); Yeast-Budding 2+ HPF (None Seen); Yeast-Hyphae 2+ HPF (None Seen)
[2020-12-23 17:07] LABS: Urine Culture Reflex Yes Yes
[2020-12-23] MEDS ORDERED: Fluconazole In NaCl,Iso-Osm 200 MG in Premix Bag 1 BAG IVPB SCH (19:00)
[2020-12-23] MEDS: cefTRIAXone\\ROCEPHIN 2 GM in Sodium Chloride 0.9% 100 ML IVPB SCH (19:34)
[2020-12-23] MEDS: Multivitamins, Adult 10 ML, Multitrace-4 NEONATAL 10 ML in D15W-AA 5% with Lytes 2,000 ML IV SCH (22:10)
[2020-12-24] MEDS: HumaLOG 300 UNITS/3 ML VIAL SC PRN ×4 (03:51→21:50)
[2020-12-24 04:54] LABS: #Eosinphils 0.1 thou/uL (0.0-0.7); #Lymphocytes 1.3 thou/uL (1.20-3.40); #Monocytes 0.8 thou/uL (0.11-0.59); #Neutrophils 7.8 thou/uL (1.40-6.50); %Eosinophils 1.5 % (0.0-10.0); %Lymphocytes 12.7 % (21.0-51.0); %Monocytes 8.1 % (0.0-10.0); %Neutrophils 77.8 % (42.0-75.0); Hemoglobin 7.2 g/dL (12.0-16.0); Mean Corpuscular HGB CONC 30.8 g/dL (32.0-36.0); Mean Corpuscular Hemoglobin 25.7 pg (27.0-31.0); Mean Corpuscular Volume 83.3 fL (78.0-98.0); Mean Platelet Volume 10.4 fL (7.4-10.4); Platelet Count 283 thou/uL (130-400); RBC Distribution Width 23.1 % (11.5-14.5); Red Blood Cell (RBC) Count 2.79 mill/uL (4.20-5.40)
[2020-12-24 05:10] LABS: Phosphorus 3.1 mg/dL (2.3-4.7)
[2020-12-24 05:15] LABS: ALT (SGPT) 60 U/L (8-55); AST (SGOT) 64 U/L (5-34); Albumin 2.4 g/dL (3.5-5.0); Alkaline Phosphatase 91 U/L (40-110); Anion Gap 12 mmol/L (10-20); BUN (Urea Nitrogen) 20 mg/dL (7.0-18.7); Bilirubin, Total 0.6 mg/dL (0.2-1.2); Calc. Creatinine Clearance 245 mL/min (70-130); Calcium 8.9 mg/dL (7.8-10.44); Carbon Dioxide 25 mmol/L (22-29); Cardiac Risk 3.5 (Less than 4.5); Chloride 109 mmol/L (98-107); Cholesterol 108 mg/dl (< 200 Desired); Glucose 216 mg/dL (70-105); HDL Cholesterol 31 mg/dL (>60 Neg Risk); LDL Cholesterol, Calculated 59 mg/dL; Magnesium 1.8 mg/dL (1.6-2.6); Protein, Total 6.4 g/dL (6.0-8.3); Sodium 142 mmol/L (136-145); Triglycerides 92 mg/dL (Less than 150)
[2020-12-24] MEDS ORDERED: Magnesium 2 GM/50 ML 2 GM in Premix Bag 1 BAG IVPB SCH (07:45)
[2020-12-24] MEDS: Pantoprazole 40 MG VIAL IVP SCH ×2 (08:05→21:37)
[2020-12-24] MEDS: methylPREDNISolone Sod Succ 40 MG VIAL IVP SCH (08:05)
[2020-12-24] MEDS: Acetaminophen 325 MG TAB PO PRN (08:06)
[2020-12-24] MEDS: Enoxaparin Sodium 40 MG/0.4 ML SYRINGE SC SCH ×2 (08:06→21:37)
[2020-12-24] MEDS: Ferrous Gluconate 324 MG TAB PO SCH (08:09)
[2020-12-24] MEDS: Fluconazole In NaCl,Iso-Osm 200 MG in Premix Bag 1 BAG IVPB SCH (08:34)
[2020-12-24] MEDS: Insulin Glargine 10 UNITS in Pre-Filled Syringe 1 EACH SC SCH (08:34)
[2020-12-24] MEDS ORDERED: Morphine 2 MG/ML VIAL SLOW IVP SCH (11:30)
[2020-12-24] MEDS ORDERED: Vancomycin HCl 1 GM in Sodium Chloride 0.9% 250 ML 250 ML IVPB SCH (12:00)
[2020-12-24] MEDS: Vancomycin 1 GM in Premix Bag 1 BAG IVPB SCH (12:20)
[2020-12-24] MEDS: cefTRIAXone\\ROCEPHIN 2 GM in Sodium Chloride 0.9% 100 ML IVPB SCH (21:36)
[2020-12-24] MEDS: Multivitamins, Adult 10 ML, Multitrace-4 NEONATAL 10 ML in D15W-AA 5% with Lytes 2,000 ML IV SCH (21:41)
[2020-12-25] MEDS: Vancomycin 1 GM in Premix Bag 1 BAG IVPB SCH ×2 (00:44→12:41)
[2020-12-25 04:58] LABS: Phosphorus 3.3 mg/dL (2.3-4.7)
[2020-12-25 05:00] LABS: ALT (SGPT) 64 U/L (8-55); AST (SGOT) 50 U/L (5-34); Albumin 2.5 g/dL (3.5-5.0); Alkaline Phosphatase 97 U/L (40-110); Anion Gap 10 mmol/L (10-20); BUN (Urea Nitrogen) 23 mg/dL (7.0-18.7); Bilirubin, Total 0.5 mg/dL (0.2-1.2); Calc. Creatinine Clearance 236 mL/min (70-130); Calcium 9.3 mg/dL (7.8-10.44); Carbon Dioxide 26 mmol/L (22-29); Cardiac Risk 3.7 (Less than 4.5); Chloride 109 mmol/L (98-107); Cholesterol 111 mg/dl (< 200 Desired); Globulin 4.1 g/dL (2.4-3.5); Glucose 253 mg/dL (70-105); HDL Cholesterol 30 mg/dL (>60 Neg Risk); LDL Cholesterol, Calculated 62 mg/dL; Magnesium 1.9 mg/dL (1.6-2.6); Potassium 3.8 mmol/L (3.5-5.1); Protein, Total 6.6 g/dL (6.0-8.3); Sodium 141 mmol/L (136-145); Triglycerides 97 mg/dL (Less than 150)
[2020-12-25] MEDS ORDERED: Magnesium 2 GM/50 ML 2 GM in Premix Bag 1 BAG IVPB SCH (05:15)
[2020-12-25] MEDS ORDERED: Potassium Chloride 20 MEQ in Premix Bag 1 BAG IVPB SCH (05:15)
[2020-12-25] MEDS: HumaLOG 300 UNITS/3 ML VIAL SC PRN ×4 (05:23→22:04)
[2020-12-25 05:26] LABS: Band 14 % (5-11); Hemoglobin 6.9 g/dL (12.0-16.0); Lymphocytes 10 % (21-51); MDiff Complete? YES; Mean Corpuscular HGB CONC 30.2 g/dL (32.0-36.0); Mean Corpuscular Hemoglobin 25.4 pg (27.0-31.0); Mean Corpuscular Volume 84.1 fL (78.0-98.0); Mean Platelet Volume 9.9 fL (7.4-10.4); Monocytes 3 % (0-10); Neutrophil 72 % (42-75); Platelet Count 306 thou/uL (130-400); RBC Distribution Width 22.7 % (11.5-14.5); Reactive Lymphocytes 1 % (0-10); White Blood Cell (WBC) Count 12.1 thou/uL (4.8-10.8)
[2020-12-25] MEDS: Enoxaparin Sodium 40 MG/0.4 ML SYRINGE SC SCH ×2 (08:47→20:26)
[2020-12-25] MEDS: Pantoprazole 40 MG VIAL IVP SCH ×2 (08:47→20:27)
[2020-12-25] MEDS: Fluconazole In NaCl,Iso-Osm 200 MG in Premix Bag 1 BAG IVPB SCH (08:48)
[2020-12-25] MEDS: methylPREDNISolone Sod Succ 40 MG VIAL IVP SCH (08:48)
[2020-12-25] MEDS: Insulin Glargine 10 UNITS in Pre-Filled Syringe 1 EACH SC SCH (08:48)
[2020-12-25] MEDS: Ferrous Gluconate 324 MG TAB PO SCH (09:16)
[2020-12-25] MEDS: Morphine 2 MG/ML VIAL SLOW IVP PRN (09:30)
[2020-12-25] MEDS: Scopolamine 1.5 mg/72 hour Patch TOP SCH (12:41)
[2020-12-25] MEDS: cefTRIAXone\\ROCEPHIN 2 GM in Sodium Chloride 0.9% 100 ML IVPB SCH (20:25)
[2020-12-25] MEDS: Multivitamins, Adult 10 ML, Multitrace-4 NEONATAL 10 ML in D15W-AA 5% with Lytes 2,000 ML IV SCH (22:03)
[2020-12-25 23:23] LABS: Vancomycin, Trough 7.6 ug/mL
[2020-12-26] MEDS: VANCOMYCIN 1.25 GM/250 ML BAG 1.25 GM in Premix Bag 1 BAG IVPB SCH ×3 (01:09→16:02)
[2020-12-26] MEDS: Vancomycin 1 GM in Premix Bag 1 BAG IVPB SCH (01:15)
[2020-12-26 04:41] LABS: Phosphorus 3.6 mg/dL (2.3-4.7)
[2020-12-26 04:44] LABS: ALT (SGPT) 69 U/L (8-55); AST (SGOT) 51 U/L (5-34); Albumin 2.6 g/dL (3.5-5.0); Alkaline Phosphatase 104 U/L (40-110); Anion Gap 13 mmol/L (10-20); BUN (Urea Nitrogen) 24 mg/dL (7.0-18.7); Bilirubin, Total 0.6 mg/dL (0.2-1.2); Calc. Creatinine Clearance 240 mL/min (70-130); Calcium 9.2 mg/dL (7.8-10.44); Carbon Dioxide 25 mmol/L (22-29); Cardiac Risk 4.1 (Less than 4.5); Chloride 109 mmol/L (98-107); Cholesterol 118 mg/dl (< 200 Desired); Globulin 4.1 g/dL (2.4-3.5); Glucose 216 mg/dL (70-105); HDL Cholesterol 29 mg/dL (>60 Neg Risk); LDL Cholesterol, Calculated 69 mg/dL; Magnesium 1.9 mg/dL (1.6-2.6); Potassium 3.8 mmol/L (3.5-5.1); Protein, Total 6.7 g/dL (6.0-8.3); Sodium 143 mmol/L (136-145); Triglycerides 99 mg/dL (Less than 150)
[2020-12-26] MEDS ORDERED: Magnesium 2 GM/50 ML 2 GM in Premix Bag 1 BAG IVPB SCH (05:00)
[2020-12-26 05:51] LABS: #Eosinphils 0.1 thou/uL (0.0-0.7); #Lymphocytes 1.2 thou/uL (1.20-3.40); #Monocytes 0.6 thou/uL (0.11-0.59); #Neutrophils 10.6 thou/uL (1.40-6.50); %Basophils 0.1 % (0.0-1.0); %Eosinophils 0.9 % (0.0-10.0); %Lymphocytes 9.6 % (21.0-51.0); %Monocytes 4.7 % (0.0-10.0); %Neutrophils 84.7 % (42.0-75.0); Hemoglobin 7.2 g/dL (12.0-16.0); Mean Corpuscular HGB CONC 29.6 g/dL (32.0-36.0); Mean Corpuscular Hemoglobin 24.7 pg (27.0-31.0); Mean Corpuscular Volume 83.5 fL (78.0-98.0); Mean Platelet Volume 9.9 fL (7.4-10.4); Platelet Count 330 thou/uL (130-400); RBC Distribution Width 23.3 % (11.5-14.5); Red Blood Cell (RBC) Count 2.92 mill/uL (4.20-5.40); White Blood Cell (WBC) Count 12.5 thou/uL (4.8-10.8)
[2020-12-26 05:52] LABS: Anisocytosis MODERATE=16-30 cells (100X) (0-5/hpf); Hypochromia SLIGHT = 6-15 cells (100X) (0-5/hpf); MDiff Complete? YES; Polychromasia SLIGHT = 2-3 cells (100X) (0-2/hpf); Tear Drops SLIGHT = 2-5 cells (100X) (0-1/hpf)
[2020-12-26] MEDS: HumaLOG 300 UNITS/3 ML VIAL SC PRN ×4 (05:59→23:10)
[2020-12-26] MEDS: Insulin Glargine 15 UNITS in Pre-Filled Syringe 1 EACH SC SCH (09:45)
[2020-12-26] MEDS: Ferrous Gluconate 324 MG TAB PO SCH (09:46)
[2020-12-26] MEDS: Fluconazole In NaCl,Iso-Osm 200 MG in Premix Bag 1 BAG IVPB SCH (09:46)
[2020-12-26] MEDS: Enoxaparin Sodium 40 MG/0.4 ML SYRINGE SC SCH ×2 (09:47→20:31)
[2020-12-26] MEDS: Pantoprazole 40 MG VIAL IVP SCH ×2 (09:47→20:31)
[2020-12-26] MEDS: Acetaminophen 325 MG TAB PO PRN (09:47)
[2020-12-26] MEDS: methylPREDNISolone Sod Succ 40 MG VIAL IVP SCH (09:50)
[2020-12-26] MEDS: Morphine 2 MG/ML VIAL SLOW IVP PRN (12:26)
[2020-12-26] MEDS: cefTRIAXone\\ROCEPHIN 2 GM in Sodium Chloride 0.9% 100 ML IVPB SCH (20:30)
[2020-12-26] MEDS: Multivitamins, Adult 10 ML, Multitrace-4 NEONATAL 10 ML in D15W-AA 5% with Lytes 2,000 ML IV SCH (22:04)
[2020-12-27] MEDS: VANCOMYCIN 1.25 GM/250 ML BAG 1.25 GM in Premix Bag 1 BAG IVPB SCH ×3 (01:15→17:06)
[2020-12-27 05:19] LABS: ALT (SGPT) 76 U/L (8-55); AST (SGOT) 56 U/L (5-34); Albumin 2.7 g/dL (3.5-5.0); Alkaline Phosphatase 110 U/L (40-110); Anion Gap 11 mmol/L (10-20); BUN (Urea Nitrogen) 24 mg/dL (7.0-18.7); Bilirubin, Total 0.6 mg/dL (0.2-1.2); Calc. Creatinine Clearance 232 mL/min (70-130); Calcium 9.2 mg/dL (7.8-10.44); Carbon Dioxide 27 mmol/L (22-29); Chloride 109 mmol/L (98-107); Cholesterol 117 mg/dl (< 200 Desired); Glucose 214 mg/dL (70-105); HDL Cholesterol 29 mg/dL (>60 Neg Risk); LDL Cholesterol, Calculated 68 mg/dL; Magnesium 1.8 mg/dL (1.6-2.6); Potassium 3.6 mmol/L (3.5-5.1); Protein, Total 6.7 g/dL (6.0-8.3); Sodium 143 mmol/L (136-145); Triglycerides 99 mg/dL (Less than 150)
[2020-12-27 05:20] LABS: Phosphorus 3.3 mg/dL (2.3-4.7)
[2020-12-27] MEDS: HumaLOG 300 UNITS/3 ML VIAL SC PRN ×4 (06:23→20:52)
[2020-12-27 06:38] LABS: Band 8 % (5-11); Eosinophils 1 % (0-10); Hemoglobin 7.4 g/dL (12.0-16.0); Lymphocytes 9 % (21-51); MDiff Complete? YES; Mean Corpuscular HGB CONC 30.3 g/dL (32.0-36.0); Mean Corpuscular Hemoglobin 25.7 pg (27.0-31.0); Mean Corpuscular Volume 84.5 fL (78.0-98.0); Mean Platelet Volume 9.7 fL (7.4-10.4); Monocytes 2 % (0-10); Myelocyte 3 % (0-0); Neutrophil 77 % (42-75); Platelet Count 322 thou/uL (130-400); RBC Distribution Width 22.7 % (11.5-14.5); Red Blood Cell (RBC) Count 2.88 mill/uL (4.20-5.40); White Blood Cell (WBC) Count 13.2 thou/uL (4.8-10.8)
[2020-12-27] MEDS ORDERED: Magnesium 2 GM/50 ML 2 GM in Premix Bag 1 BAG IVPB SCH (07:45)
[2020-12-27] MEDS ORDERED: Magnesium Sulfate 4 GM in Sodium Chloride 0.9% 250 ML 250 ML IVPB SCH (08:45)
[2020-12-27] MEDS: Ferrous Gluconate 324 MG TAB PO SCH (09:03)
[2020-12-27] MEDS: Fluconazole In NaCl,Iso-Osm 200 MG in Premix Bag 1 BAG IVPB SCH (09:03)
[2020-12-27] MEDS: Insulin Glargine 15 UNITS in Pre-Filled Syringe 1 EACH SC SCH ×2 (09:03→20:51)
[2020-12-27] MEDS: Pantoprazole 40 MG VIAL IVP SCH ×2 (09:09→20:40)
[2020-12-27] MEDS: Enoxaparin Sodium 40 MG/0.4 ML SYRINGE SC SCH ×2 (09:10→20:40)
[2020-12-27] MEDS: methylPREDNISolone Sod Succ 40 MG VIAL IVP SCH (09:10)
[2020-12-27] MEDS: Morphine 2 MG/ML VIAL SLOW IVP PRN (17:01)
[2020-12-27] MEDS: cefTRIAXone\\ROCEPHIN 2 GM in Sodium Chloride 0.9% 100 ML IVPB SCH (20:34)
[2020-12-27] MEDS: Multivitamins, Adult 10 ML, Multitrace-4 NEONATAL 10 ML in D15W-AA 5% with Lytes 2,000 ML IV SCH (21:58)
[2020-12-28 00:21] LABS: Vancomycin, Trough 17.1 ug/mL
[2020-12-28] MEDS: VANCOMYCIN 1.25 GM/250 ML BAG 1.25 GM in Premix Bag 1 BAG IVPB SCH ×3 (01:14→16:25)
[2020-12-28] MEDS: Ferrous Gluconate 324 MG TAB PO SCH (14:38)
[2020-12-28] MEDS: Enoxaparin Sodium 40 MG/0.4 ML SYRINGE SC SCH ×2 (14:38→21:17)
[2020-12-28] MEDS: Fluconazole In NaCl,Iso-Osm 200 MG in Premix Bag 1 BAG IVPB SCH (14:39)
[2020-12-28] MEDS: Pantoprazole 40 MG VIAL IVP SCH ×2 (14:39→21:17)
[2020-12-28] MEDS: methylPREDNISolone Sod Succ 40 MG VIAL IVP SCH (14:39)
[2020-12-28] MEDS: Insulin Glargine 15 UNITS in Pre-Filled Syringe 1 EACH SC SCH ×2 (14:39→20:46)
[2020-12-28] MEDS: Scopolamine 1.5 mg/72 hour Patch TOP SCH (14:41)
[2020-12-28 15:11] LABS: Phosphorus 3.4 mg/dL (2.3-4.7)
[2020-12-28 15:12] LABS: Anion Gap 13 mmol/L (10-20); BUN (Urea Nitrogen) 26 mg/dL (7.0-18.7); Calc. Creatinine Clearance 251 mL/min (70-130); Carbon Dioxide 25 mmol/L (22-29); Chloride 110 mmol/L (98-107); Glucose 191 mg/dL (70-105); Potassium 3.5 mmol/L (3.5-5.1); Sodium 144 mmol/L (136-145)
[2020-12-28] MEDS: HumaLOG 300 UNITS/3 ML VIAL SC PRN ×2 (15:41→20:41)
[2020-12-28 16:43] LABS: Magnesium 1.9 mg/dL (1.6-2.6)
[2020-12-28 20:45] LABS: INR-International Normal Ratio 1.1; PTT 23.6 sec (22.9-36.1); Prothrombin Time 14.7 sec (12.0-14.7)
[2020-12-28] MEDS: cefTRIAXone\\ROCEPHIN 2 GM in Sodium Chloride 0.9% 100 ML IVPB SCH (21:37)
[2020-12-28] MEDS: Multivitamins, Adult 10 ML, Multitrace-4 NEONATAL 10 ML in D15W-AA 5% with Lytes 2,000 ML IV SCH (21:52)
[2020-12-29] MEDS: VANCOMYCIN 1.25 GM/250 ML BAG 1.25 GM in Premix Bag 1 BAG IVPB SCH ×3 (01:10→17:29)
[2020-12-29] MEDS: HumaLOG 300 UNITS/3 ML VIAL SC PRN ×5 (01:12→20:51)
[2020-12-29 05:34] LABS: Phosphorus 3.2 mg/dL (2.3-4.7)
[2020-12-29 05:35] LABS: Anion Gap 13 mmol/L (10-20); BUN (Urea Nitrogen) 29 mg/dL (7.0-18.7); Calc. Creatinine Clearance 251 mL/min (70-130); Calcium 9.2 mg/dL (7.8-10.44); Carbon Dioxide 24 mmol/L (22-29); Chloride 113 mmol/L (98-107); Glucose 174 mg/dL (70-105); Magnesium 1.8 mg/dL (1.6-2.6); Potassium 3.6 mmol/L (3.5-5.1); Sodium 146 mmol/L (136-145)
[2020-12-29 06:19] LABS: #Eosinphils 0.1 thou/uL (0.0-0.7); #Lymphocytes 1.7 thou/uL (1.20-3.40); #Monocytes 0.5 thou/uL (0.11-0.59); #Neutrophils 11.3 thou/uL (1.40-6.50); %Basophils 0.2 % (0.0-1.0); %Eosinophils 0.8 % (0.0-10.0); %Lymphocytes 12.6 % (21.0-51.0); %Monocytes 3.8 % (0.0-10.0); %Neutrophils 82.6 % (42.0-75.0); Hemoglobin 7.7 g/dL (12.0-16.0); Mean Corpuscular HGB CONC 30.5 g/dL (32.0-36.0); Mean Corpuscular Volume 85.2 fL (78.0-98.0); Mean Platelet Volume 10.3 fL (7.4-10.4); Platelet Count 300 thou/uL (130-400); RBC Distribution Width 22.9 % (11.5-14.5); Red Blood Cell (RBC) Count 2.96 mill/uL (4.20-5.40); White Blood Cell (WBC) Count 13.7 thou/uL (4.8-10.8)
[2020-12-29] MEDS ORDERED: Magnesium 2 GM/50 ML 2 GM in Premix Bag 1 BAG IVPB SCH (06:30)
[2020-12-29] MEDS: Insulin Glargine 15 UNITS in Pre-Filled Syringe 1 EACH SC SCH ×2 (08:34→20:51)
[2020-12-29] MEDS: Enoxaparin Sodium 40 MG/0.4 ML SYRINGE SC SCH ×2 (08:34→21:09)
[2020-12-29] MEDS: Fluconazole In NaCl,Iso-Osm 200 MG in Premix Bag 1 BAG IVPB SCH (08:34)
[2020-12-29] MEDS: methylPREDNISolone Sod Succ 40 MG VIAL IVP SCH (08:35)
[2020-12-29] MEDS: Pantoprazole 40 MG VIAL IVP SCH ×2 (08:35→21:08)
[2020-12-29] MEDS: Ferrous Gluconate 324 MG TAB PO SCH (08:38)
[2020-12-29] MEDS: Fluconazole In NaCl,Iso-Osm 200 MG, Admixture Fee 1 EACH in Premix Bag 1 BAG IVPB SCH (10:26)
[2020-12-29] MEDS: cefTRIAXone\\ROCEPHIN 2 GM in Sodium Chloride 0.9% 100 ML IVPB SCH (21:34)
[2020-12-29] MEDS: Multivitamins, Adult 10 ML, Multitrace-4 NEONATAL 10 ML in D15W-AA 5% with Lytes 2,000 ML IV SCH (21:36)
[2020-12-30 01:04] LABS: Vancomycin, Trough 20.6 ug/mL
[2020-12-30] MEDS: VANCOMYCIN 1.25 GM/250 ML BAG 1.25 GM in Premix Bag 1 BAG IVPB SCH ×2 (01:28→09:28)
[2020-12-30 04:37] LABS: #Eosinphils 0.2 thou/uL (0.0-0.7); #Lymphocytes 1.3 thou/uL (1.20-3.40); #Monocytes 0.6 thou/uL (0.11-0.59); #Neutrophils 10.2 thou/uL (1.40-6.50); %Eosinophils 1.6 % (0.0-10.0); %Lymphocytes 10.4 % (21.0-51.0); %Monocytes 4.6 % (0.0-10.0); %Neutrophils 83.3 % (42.0-75.0); Hemoglobin 7.5 g/dL (12.0-16.0); Mean Corpuscular HGB CONC 31.7 g/dL (32.0-36.0); Mean Corpuscular Hemoglobin 27.5 pg (27.0-31.0); Mean Corpuscular Volume 86.9 fL (78.0-98.0); Mean Platelet Volume 9.6 fL (7.4-10.4); Platelet Count 243 thou/uL (130-400); RBC Distribution Width 22.8 % (11.5-14.5); Red Blood Cell (RBC) Count 2.71 mill/uL (4.20-5.40); White Blood Cell (WBC) Count 12.2 thou/uL (4.8-10.8)
[2020-12-30 04:48] LABS: Phosphorus 3.5 mg/dL (2.3-4.7)
[2020-12-30 05:32] LABS: Anion Gap 13 mmol/L (10-20); BUN (Urea Nitrogen) 26 mg/dL (7.0-18.7); Calc. Creatinine Clearance 261 mL/min (70-130); Calcium 9.1 mg/dL (7.8-10.44); Carbon Dioxide 23 mmol/L (22-29); Chloride 112 mmol/L (98-107); Glucose 176 mg/dL (70-105); Magnesium 1.8 mg/dL (1.6-2.6); Potassium 3.5 mmol/L (3.5-5.1); Sodium 144 mmol/L (136-145)
[2020-12-30] MEDS: HumaLOG 300 UNITS/3 ML VIAL SC PRN ×4 (06:50→20:35)
[2020-12-30] MEDS ORDERED: Potassium Chloride 40 MEQ in Premix Bag 1 BAG IVPB SCH (07:45)
[2020-12-30] MEDS ORDERED: Magnesium 2 GM/50 ML 2 GM in Premix Bag 1 BAG IVPB SCH (07:45)
[2020-12-30 08:49] LABS: Vancomycin, Trough 20.5 ug/mL
[2020-12-30] MEDS: Ferrous Gluconate 324 MG TAB PO SCH (09:25)
[2020-12-30] MEDS: Enoxaparin Sodium 40 MG/0.4 ML SYRINGE SC SCH ×2 (09:25→21:49)
[2020-12-30] MEDS: Insulin Glargine 15 UNITS in Pre-Filled Syringe 1 EACH SC SCH ×2 (09:26→21:50)
[2020-12-30] MEDS: Pantoprazole 40 MG VIAL IVP SCH ×2 (09:27→21:49)
[2020-12-30] MEDS: methylPREDNISolone Sod Succ 40 MG VIAL IVP SCH (09:27)
[2020-12-30] MEDS: Fluconazole In NaCl,Iso-Osm 200 MG, Admixture Fee 1 EACH in Premix Bag 1 BAG IVPB SCH (10:14)
[2020-12-30 12:44] LABS: Potassium 4.3 mmol/L (3.5-5.1)
[2020-12-30] MEDS: Amoxicillin/Potassium Clav 875 MG TAB PER TUBE SCH (21:49)
[2020-12-30] MEDS: MAGNESIUM SULFATE IV SCH (22:01)
[2020-12-30] MEDS: [UNRECOGNIZED DRUG - OTHER] IV SCH (22:01)
[2020-12-30] MEDS: POTASSIUM ACETATE IV SCH (22:01)
[2020-12-30] MEDS: MULTIVITAMINS IV SCH (22:01)
[2020-12-31 04:00] LABS: #Eosinphils 0.2 thou/uL (0.0-0.7); #Lymphocytes 1.2 thou/uL (1.20-3.40); #Monocytes 0.6 thou/uL (0.11-0.59); %Basophils 0.2 % (0.0-1.0); %Eosinophils 1.5 % (0.0-10.0); %Lymphocytes 11.1 % (21.0-51.0); %Monocytes 5.4 % (0.0-10.0); %Neutrophils 81.9 % (42.0-75.0); Hemoglobin 7.8 g/dL (12.0-16.0); Mean Corpuscular HGB CONC 30.9 g/dL (32.0-36.0); Mean Corpuscular Hemoglobin 26.5 pg (27.0-31.0); Mean Corpuscular Volume 85.6 fL (78.0-98.0); Mean Platelet Volume 10.2 fL (7.4-10.4); Platelet Count 244 thou/uL (130-400); RBC Distribution Width 22.7 % (11.5-14.5); Red Blood Cell (RBC) Count 2.95 mill/uL (4.20-5.40)
[2020-12-31 04:18] LABS: Phosphorus 3.4 mg/dL (2.3-4.7)
[2020-12-31 04:20] LABS: Anion Gap 9 mmol/L (10-20); BUN (Urea Nitrogen) 24 mg/dL (7.0-18.7); Calc. Creatinine Clearance 272 mL/min (70-130); Calcium 9.2 mg/dL (7.8-10.44); Carbon Dioxide 26 mmol/L (22-29); Chloride 112 mmol/L (98-107); Glucose 161 mg/dL (70-105); Magnesium 1.9 mg/dL (1.6-2.6); Potassium 3.8 mmol/L (3.5-5.1); Sodium 143 mmol/L (136-145)
[2020-12-31] MEDS ORDERED: Magnesium 2 GM/50 ML 2 GM in Premix Bag 1 BAG IVPB SCH (06:15)
[2020-12-31] MEDS: HumaLOG 300 UNITS/3 ML VIAL SC PRN ×5 (06:16→21:14)
[2020-12-31] MEDS: Insulin Glargine 15 UNITS in Pre-Filled Syringe 1 EACH SC SCH ×2 (08:54→21:13)
[2020-12-31] MEDS: Ferrous Gluconate 324 MG TAB PO SCH (08:55)
[2020-12-31] MEDS: methylPREDNISolone Sod Succ 40 MG VIAL IVP SCH (08:55)
[2020-12-31] MEDS: Enoxaparin Sodium 40 MG/0.4 ML SYRINGE SC SCH ×2 (08:55→21:12)
[2020-12-31] MEDS: Amoxicillin/Potassium Clav 875 MG TAB PER TUBE SCH ×2 (08:55→21:11)
[2020-12-31] MEDS: Pantoprazole 40 MG VIAL IVP SCH ×2 (08:56→21:12)
[2020-12-31] MEDS: Fluconazole In NaCl,Iso-Osm 200 MG, Admixture Fee 1 EACH in Premix Bag 1 BAG IVPB SCH (09:14)
[2020-12-31] MEDS: Scopolamine 1.5 mg/72 hour Patch TOP SCH (12:09)
[2020-12-31] MEDS: POTASSIUM ACETATE IV SCH (22:18)
[2020-12-31] MEDS: [UNRECOGNIZED DRUG - OTHER] IV SCH (22:18)
[2020-12-31] MEDS: MULTIVITAMINS IV SCH (22:18)
[2020-12-31] MEDS: MAGNESIUM SULFATE IV SCH (22:18)
[2021-01-01] MEDS: HumaLOG 300 UNITS/3 ML VIAL SC PRN ×4 (00:19→21:52)
[2021-01-01 04:49] LABS: Phosphorus 3.4 mg/dL (2.3-4.7)
[2021-01-01 04:53] LABS: Anion Gap 10 mmol/L (10-20); BUN (Urea Nitrogen) 24 mg/dL (7.0-18.7); Calc. Creatinine Clearance 272 mL/min (70-130); Calcium 9.5 mg/dL (7.8-10.44); Carbon Dioxide 25 mmol/L (22-29); Chloride 111 mmol/L (98-107); Glucose 151 mg/dL (70-105); Magnesium 1.9 mg/dL (1.6-2.6); Potassium 3.9 mmol/L (3.5-5.1); Sodium 142 mmol/L (136-145)
[2021-01-01 05:21] LABS: #Eosinphils 0.2 thou/uL (0.0-0.7); #Lymphocytes 1.4 thou/uL (1.20-3.40); #Monocytes 0.5 thou/uL (0.11-0.59); #Neutrophils 8.7 thou/uL (1.40-6.50); %Basophils 0.2 % (0.0-1.0); %Eosinophils 1.4 % (0.0-10.0); %Lymphocytes 12.8 % (21.0-51.0); %Monocytes 4.7 % (0.0-10.0); %Neutrophils 80.9 % (42.0-75.0); Hemoglobin 7.6 g/dL (12.0-16.0); Mean Corpuscular Hemoglobin 26.7 pg (27.0-31.0); Mean Corpuscular Volume 86.1 fL (78.0-98.0); Mean Platelet Volume 10.2 fL (7.4-10.4); Platelet Count 238 thou/uL (130-400); RBC Distribution Width 22.4 % (11.5-14.5); Red Blood Cell (RBC) Count 2.86 mill/uL (4.20-5.40); White Blood Cell (WBC) Count 10.7 thou/uL (4.8-10.8)
[2021-01-01] MEDS ORDERED: Magnesium 2 GM/50 ML 2 GM in Premix Bag 1 BAG IVPB SCH (06:15)
[2021-01-01] MEDS: Pantoprazole 40 MG VIAL IVP SCH ×2 (09:44→21:51)
[2021-01-01] MEDS: methylPREDNISolone Sod Succ 40 MG VIAL IVP SCH (09:44)
[2021-01-01] MEDS: Ferrous Gluconate 324 MG TAB PO SCH (09:45)
[2021-01-01] MEDS: Amoxicillin/Potassium Clav 875 MG TAB PER TUBE SCH ×2 (09:45→21:49)
[2021-01-01] MEDS: Enoxaparin Sodium 40 MG/0.4 ML SYRINGE SC SCH ×2 (09:45→21:49)
[2021-01-01] MEDS: Insulin Glargine 15 UNITS in Pre-Filled Syringe 1 EACH SC SCH ×2 (09:45→21:51)
[2021-01-01] MEDS: Fluconazole In NaCl,Iso-Osm 200 MG in Premix Bag 1 BAG IVPB SCH (09:48)
[2021-01-01] MEDS: Acetaminophen 650 MG/20.3 ML UDCUP PO PRN (11:28)
[2021-01-01] MEDS ORDERED: Magnesium 2 GM/50 ML BAG (IN WATER) ONE (19:19)
[2021-01-01] MEDS: POTASSIUM ACETATE IV SCH (21:53)
[2021-01-01] MEDS: MULTIVITAMINS IV SCH (21:53)
[2021-01-01] MEDS: [UNRECOGNIZED DRUG - OTHER] IV SCH (21:53)
[2021-01-01] MEDS: MAGNESIUM SULFATE IV SCH (21:53)
[2021-01-02 04:31] LABS: Phosphorus 3.5 mg/dL (2.3-4.7)
[2021-01-02 04:35] LABS: Anion Gap 11 mmol/L (10-20); BUN (Urea Nitrogen) 24 mg/dL (7.0-18.7); Calc. Creatinine Clearance 261 mL/min (70-130); Calcium 9.4 mg/dL (7.8-10.44); Carbon Dioxide 26 mmol/L (22-29); Chloride 110 mmol/L (98-107); Glucose 147 mg/dL (70-105); Sodium 143 mmol/L (136-145)
[2021-01-02] MEDS ORDERED: Magnesium 2 GM/50 ML 2 GM in Premix Bag 1 BAG IVPB SCH (07:15)
[2021-01-02 08:44] LABS: #Eosinphils 0.2 thou/uL (0.0-0.7); #Lymphocytes 1.5 thou/uL (1.20-3.40); #Monocytes 0.7 thou/uL (0.11-0.59); #Neutrophils 9.5 thou/uL (1.40-6.50); %Basophils 0.3 % (0.0-1.0); %Lymphocytes 12.6 % (21.0-51.0); %Monocytes 5.5 % (0.0-10.0); %Neutrophils 79.6 % (42.0-75.0); Hemoglobin 8.2 g/dL (12.0-16.0); Mean Corpuscular HGB CONC 31.5 g/dL (32.0-36.0); Mean Corpuscular Hemoglobin 27.6 pg (27.0-31.0); Mean Corpuscular Volume 87.7 fL (78.0-98.0); Mean Platelet Volume 10.3 fL (7.4-10.4); Platelet Count 249 thou/uL (130-400); Red Blood Cell (RBC) Count 2.96 mill/uL (4.20-5.40)
[2021-01-02] MEDS: methylPREDNISolone Sod Succ 40 MG VIAL IVP SCH (09:32)
[2021-01-02] MEDS: Enoxaparin Sodium 40 MG/0.4 ML SYRINGE SC SCH ×2 (09:32→21:32)
[2021-01-02] MEDS: Ferrous Gluconate 324 MG TAB PO SCH (09:32)
[2021-01-02] MEDS: Insulin Glargine 15 UNITS in Pre-Filled Syringe 1 EACH SC SCH ×2 (09:32→21:31)
[2021-01-02] MEDS: Pantoprazole 40 MG VIAL IVP SCH ×2 (09:32→21:32)
[2021-01-02] MEDS: Acetaminophen 650 MG/20.3 ML UDCUP PO PRN ×2 (09:32→15:51)
[2021-01-02] MEDS: Amoxicillin/Potassium Clav 875 MG TAB PER TUBE SCH ×2 (09:33→21:32)
[2021-01-02] MEDS: Fluconazole In NaCl,Iso-Osm 200 MG in Premix Bag 1 BAG IVPB SCH (09:33)
[2021-01-02] MEDS: HumaLOG 300 UNITS/3 ML VIAL SC PRN ×3 (13:51→21:30)
[2021-01-02] MEDS: [UNRECOGNIZED DRUG - OTHER] IV SCH (22:12)
[2021-01-02] MEDS: POTASSIUM ACETATE IV SCH (22:12)
[2021-01-02] MEDS: MULTIVITAMINS IV SCH (22:12)
[2021-01-02] MEDS: MAGNESIUM SULFATE IV SCH (22:12)
[2021-01-03 04:34] LABS: #Eosinphils 0.1 thou/uL (0.0-0.7); #Lymphocytes 1.4 thou/uL (1.20-3.40); #Monocytes 0.5 thou/uL (0.11-0.59); #Neutrophils 9.6 thou/uL (1.40-6.50); %Basophils 0.1 % (0.0-1.0); %Eosinophils 1.2 % (0.0-10.0); %Lymphocytes 11.8 % (21.0-51.0); %Monocytes 4.3 % (0.0-10.0); %Neutrophils 82.6 % (42.0-75.0); Hemoglobin 8.2 g/dL (12.0-16.0); Mean Corpuscular HGB CONC 31.4 g/dL (32.0-36.0); Mean Corpuscular Hemoglobin 27.2 pg (27.0-31.0); Mean Corpuscular Volume 86.6 fL (78.0-98.0); Mean Platelet Volume 10.5 fL (7.4-10.4); Platelet Count 280 thou/uL (130-400); White Blood Cell (WBC) Count 11.6 thou/uL (4.8-10.8)
[2021-01-03 05:18] LABS: Anion Gap 10 mmol/L (10-20); BUN (Urea Nitrogen) 24 mg/dL (7.0-18.7); Calc. Creatinine Clearance 0 mL/min (70-130); Calcium 9.6 mg/dL (7.8-10.44); Carbon Dioxide 26 mmol/L (22-29); Chloride 110 mmol/L (98-107); Glucose 128 mg/dL (70-105); Magnesium 1.8 mg/dL (1.6-2.6); Phosphorus 3.5 mg/dL (2.3-4.7); Sodium 142 mmol/L (136-145)
[2021-01-03] MEDS ORDERED: Magnesium 2 GM/50 ML 2 GM in Premix Bag 1 BAG IVPB SCH (05:30)
[2021-01-03] MEDS: Acetaminophen 650 MG/20.3 ML UDCUP PO PRN (09:50)
[2021-01-03] MEDS: methylPREDNISolone Sod Succ 40 MG VIAL IVP SCH (09:50)
[2021-01-03] MEDS: Pantoprazole 40 MG VIAL IVP SCH ×2 (09:50→21:38)
[2021-01-03] MEDS: Enoxaparin Sodium 40 MG/0.4 ML SYRINGE SC SCH ×2 (09:50→21:37)
[2021-01-03] MEDS: Insulin Glargine 15 UNITS in Pre-Filled Syringe 1 EACH SC SCH ×2 (09:50→21:40)
[2021-01-03] MEDS: Fluconazole In NaCl,Iso-Osm 200 MG in Premix Bag 1 BAG IVPB SCH (09:51)
[2021-01-03] MEDS: Amoxicillin/Potassium Clav 875 MG TAB PER TUBE SCH ×2 (09:51→21:38)
[2021-01-03] MEDS: Ferrous Gluconate 324 MG TAB PO SCH (09:51)
[2021-01-03] MEDS: HumaLOG 300 UNITS/3 ML VIAL SC PRN ×3 (12:10→21:39)
[2021-01-03] MEDS: Scopolamine 1.5 mg/72 hour Patch TOP SCH (12:15)
[2021-01-03] MEDS: MAGNESIUM SULFATE IV SCH (22:24)
[2021-01-03] MEDS: POTASSIUM ACETATE IV SCH (22:24)
[2021-01-03] MEDS: [UNRECOGNIZED DRUG - OTHER] IV SCH (22:24)
[2021-01-03] MEDS: MULTIVITAMINS IV SCH (22:24)
[2021-01-04] MEDS: HumaLOG 300 UNITS/3 ML VIAL SC PRN ×4 (00:21→21:29)
[2021-01-04 04:10] LABS: #Eosinphils 0.1 thou/uL (0.0-0.7); #Lymphocytes 1.3 thou/uL (1.20-3.40); #Monocytes 0.6 thou/uL (0.11-0.59); #Neutrophils 9.1 thou/uL (1.40-6.50); %Basophils 0.1 % (0.0-1.0); %Eosinophils 1.1 % (0.0-10.0); %Lymphocytes 11.6 % (21.0-51.0); %Monocytes 5.2 % (0.0-10.0); %Neutrophils 82.1 % (42.0-75.0); Mean Corpuscular HGB CONC 31.2 g/dL (32.0-36.0); Mean Corpuscular Volume 86.6 fL (78.0-98.0); Mean Platelet Volume 10.4 fL (7.4-10.4); Platelet Count 258 thou/uL (130-400); RBC Distribution Width 21.5 % (11.5-14.5); Red Blood Cell (RBC) Count 2.96 mill/uL (4.20-5.40); White Blood Cell (WBC) Count 11.1 thou/uL (4.8-10.8)
[2021-01-04 04:31] LABS: Phosphorus 3.6 mg/dL (2.3-4.7)
[2021-01-04 04:34] LABS: Anion Gap 9 mmol/L (10-20); BUN (Urea Nitrogen) 25 mg/dL (7.0-18.7); Calc. Creatinine Clearance 283 mL/min (70-130); Calcium 9.6 mg/dL (7.8-10.44); Carbon Dioxide 27 mmol/L (22-29); Chloride 109 mmol/L (98-107); Glucose 145 mg/dL (70-105); Magnesium 1.8 mg/dL (1.6-2.6); Sodium 141 mmol/L (136-145)
[2021-01-04] MEDS ORDERED: Magnesium 2 GM/50 ML 2 GM in Premix Bag 1 BAG IVPB SCH (05:00)
[2021-01-04] MEDS: Enoxaparin Sodium 40 MG/0.4 ML SYRINGE SC SCH ×2 (09:22→21:28)
[2021-01-04] MEDS: Pantoprazole 40 MG VIAL IVP SCH ×2 (09:22→21:28)
[2021-01-04] MEDS: Ferrous Gluconate 324 MG TAB PO SCH (09:22)
[2021-01-04] MEDS: methylPREDNISolone Sod Succ 40 MG VIAL IVP SCH (09:23)
[2021-01-04] MEDS: Insulin Glargine 15 UNITS in Pre-Filled Syringe 1 EACH SC SCH ×2 (09:23→21:29)
[2021-01-04] MEDS: Amoxicillin/Potassium Clav 875 MG TAB PER TUBE SCH ×2 (09:23→21:29)
[2021-01-04] MEDS: Fluconazole In NaCl,Iso-Osm 200 MG in Premix Bag 1 BAG IVPB SCH (09:27)
[2021-01-04] MEDS ORDERED: POTASSIUM ACETATE IV SCH (22:00)
[2021-01-04] MEDS ORDERED: MAGNESIUM SULFATE IV SCH (22:00)
[2021-01-04] MEDS ORDERED: [UNRECOGNIZED DRUG - OTHER] IV SCH (22:00)
[2021-01-04] MEDS ORDERED: MULTIVITAMINS IV SCH (22:00)
[2021-01-05 03:39] LABS: #Eosinphils 0.1 thou/uL (0.0-0.7); #Lymphocytes 1.3 thou/uL (1.20-3.40); #Monocytes 0.5 thou/uL (0.11-0.59); #Neutrophils 8.3 thou/uL (1.40-6.50); %Basophils 0.1 % (0.0-1.0); %Eosinophils 0.9 % (0.0-10.0); %Lymphocytes 12.6 % (21.0-51.0); %Monocytes 4.9 % (0.0-10.0); %Neutrophils 81.5 % (42.0-75.0); Hemoglobin 8.2 g/dL (12.0-16.0); Mean Corpuscular HGB CONC 31.1 g/dL (32.0-36.0); Mean Corpuscular Hemoglobin 27.1 pg (27.0-31.0); Mean Platelet Volume 10.4 fL (7.4-10.4); Platelet Count 256 thou/uL (130-400); RBC Distribution Width 20.9 % (11.5-14.5); Red Blood Cell (RBC) Count 3.04 mill/uL (4.20-5.40); White Blood Cell (WBC) Count 10.2 thou/uL (4.8-10.8)
[2021-01-05 03:58] LABS: Anion Gap 12 mmol/L (10-20); BUN (Urea Nitrogen) 22 mg/dL (7.0-18.7); Calc. Creatinine Clearance 278 mL/min (70-130); Calcium 9.5 mg/dL (7.8-10.44); Carbon Dioxide 26 mmol/L (22-29); Chloride 106 mmol/L (98-107); Glucose 141 mg/dL (70-105); Magnesium 1.8 mg/dL (1.6-2.6); Phosphorus 3.6 mg/dL (2.3-4.7); Potassium 4.1 mmol/L (3.5-5.1); Sodium 140 mmol/L (136-145)
[2021-01-05] MEDS ORDERED: Magnesium 2 GM/50 ML 2 GM in Premix Bag 1 BAG IVPB SCH (06:30)
[2021-01-05] MEDS: Acetaminophen 650 MG/20.3 ML UDCUP PO PRN (08:56)
[2021-01-05] MEDS: Enoxaparin Sodium 40 MG/0.4 ML SYRINGE SC SCH ×2 (08:56→21:34)
[2021-01-05] MEDS: Pantoprazole 40 MG VIAL IVP SCH ×2 (08:56→21:34)
[2021-01-05] MEDS: methylPREDNISolone Sod Succ 40 MG VIAL IVP SCH (08:56)
[2021-01-05] MEDS: Amoxicillin/Potassium Clav 875 MG TAB PER TUBE SCH ×2 (08:57→21:34)
[2021-01-05] MEDS: Ferrous Gluconate 324 MG TAB PO SCH (08:57)
[2021-01-05] MEDS: Fluconazole In NaCl,Iso-Osm 200 MG in Premix Bag 1 BAG IVPB SCH (08:57)
[2021-01-05] MEDS: Insulin Glargine 15 UNITS in Pre-Filled Syringe 1 EACH SC SCH ×2 (08:57→21:34)
[2021-01-05] MEDS ORDERED: hydrALAZINE 20 MG/ML VIAL SLOW IVP SCH (10:30)
[2021-01-05] MEDS ORDERED: Ketorolac Tromethamine 30 MG/ML VIAL IVP SCH (11:15)
[2021-01-05] MEDS: HumaLOG 300 UNITS/3 ML VIAL SC PRN ×3 (13:19→21:35)
[2021-01-05] MEDS: Ketorolac Tromethamine 30 MG/ML VIAL IVP PRN (16:38)
[2021-01-05] MEDS: MULTIVITAMINS IV SCH (21:54)
[2021-01-05] MEDS: [UNRECOGNIZED DRUG - OTHER] IV SCH (21:54)
[2021-01-05] MEDS: POTASSIUM ACETATE IV SCH (21:54)
[2021-01-05] MEDS: MAGNESIUM SULFATE IV SCH (21:54)
[2021-01-05] MEDS ORDERED: MULTIVITAMINS IV SCH (22:00)
[2021-01-05] MEDS ORDERED: [UNRECOGNIZED DRUG - OTHER] IV SCH (22:00)
[2021-01-05] MEDS ORDERED: MAGNESIUM SULFATE IV SCH (22:00)
[2021-01-05] MEDS ORDERED: POTASSIUM ACETATE IV SCH (22:00)
[2021-01-05] MEDS ORDERED: Morphine 2 MG/ML VIAL SLOW IVP SCH (23:45)
[2021-01-06 04:04] LABS: Band 9 % (5-11); Eosinophils 3 % (0-10); Hemoglobin 8.6 g/dL (12.0-16.0); Lymphocytes 12 % (21-51); MDiff Complete? YES; Mean Corpuscular HGB CONC 31.8 g/dL (32.0-36.0); Mean Corpuscular Hemoglobin 27.6 pg (27.0-31.0); Mean Corpuscular Volume 86.8 fL (78.0-98.0); Mean Platelet Volume 10.5 fL (7.4-10.4); Monocytes 3 % (0-10); Neutrophil 73 % (42-75); Platelet Clumps MARKED; Platelet Morphology Comment PLT clumps seen-ADEQ; Red Blood Cell (RBC) Count 3.12 mill/uL (4.20-5.40); White Blood Cell (WBC) Count 9.7 thou/uL (4.8-10.8)
[2021-01-06 04:12] LABS: Anion Gap 11 mmol/L (10-20); BUN (Urea Nitrogen) 28 mg/dL (7.0-18.7); Calc. Creatinine Clearance 272 mL/min (70-130); Calcium 9.7 mg/dL (7.8-10.44); Carbon Dioxide 26 mmol/L (22-29); Chloride 106 mmol/L (98-107); Glucose 112 mg/dL (70-105); Magnesium 2.1 mg/dL (1.6-2.6); Potassium 4.2 mmol/L (3.5-5.1); Sodium 139 mmol/L (136-145)
[2021-01-06 04:17] LABS: Phosphorus 4.6 mg/dL (2.3-4.7)
[2021-01-06] MEDS: Amoxicillin/Potassium Clav 875 MG TAB PER TUBE SCH ×2 (08:00→20:28)
[2021-01-06] MEDS: Ferrous Gluconate 324 MG TAB PO SCH (08:00)
[2021-01-06] MEDS: Pantoprazole 40 MG VIAL IVP SCH ×2 (08:00→20:26)
[2021-01-06] MEDS: Insulin Glargine 15 UNITS in Pre-Filled Syringe 1 EACH SC SCH ×2 (08:00→20:27)
[2021-01-06] MEDS: Enoxaparin Sodium 40 MG/0.4 ML SYRINGE SC SCH ×2 (08:00→20:26)
[2021-01-06] MEDS: methylPREDNISolone Sod Succ 40 MG VIAL IVP SCH (08:03)
[2021-01-06] MEDS: Fluconazole In NaCl,Iso-Osm 200 MG in Premix Bag 1 BAG IVPB SCH (09:11)
[2021-01-06] MEDS: Scopolamine 1.5 mg/72 hour Patch TOP SCH (12:44)
[2021-01-06] MEDS: POTASSIUM ACETATE IV SCH ×2 (15:12→22:24)
[2021-01-06] MEDS: [UNRECOGNIZED DRUG - OTHER] IV SCH (15:12)
[2021-01-06] MEDS: MULTIVITAMINS IV SCH ×2 (15:12→22:24)
[2021-01-06] MEDS: MAGNESIUM SULFATE IV SCH ×2 (15:12→22:24)
[2021-01-06] MEDS: HumaLOG 300 UNITS/3 ML VIAL SC PRN ×2 (17:04→20:29)
[2021-01-06] MEDS: [UNRECOGNIZED DRUG - OTHER] IV SCH (22:24)
[2021-01-07 05:04] LABS: #Eosinphils 0.3 thou/uL (0.0-0.7); #Lymphocytes 1.1 thou/uL (1.20-3.40); #Monocytes 0.6 thou/uL (0.11-0.59); #Neutrophils 8.8 thou/uL (1.40-6.50); %Basophils 0.1 % (0.0-1.0); %Eosinophils 2.5 % (0.0-10.0); %Lymphocytes 9.8 % (21.0-51.0); %Monocytes 5.2 % (0.0-10.0); %Neutrophils 82.4 % (42.0-75.0); Hemoglobin 8.7 g/dL (12.0-16.0); Mean Corpuscular HGB CONC 31.6 g/dL (32.0-36.0); Mean Corpuscular Hemoglobin 27.6 pg (27.0-31.0); Mean Corpuscular Volume 87.3 fL (78.0-98.0); Mean Platelet Volume 11.2 fL (7.4-10.4); Platelet Count 266 thou/uL (130-400); RBC Distribution Width 20.7 % (11.5-14.5); Red Blood Cell (RBC) Count 3.17 mill/uL (4.20-5.40); White Blood Cell (WBC) Count 10.6 thou/uL (4.8-10.8)
[2021-01-07 05:21] LABS: Phosphorus 3.9 mg/dL (2.3-4.7)
[2021-01-07 05:23] LABS: Anion Gap 11 mmol/L (10-20); BUN (Urea Nitrogen) 22 mg/dL (7.0-18.7); Calc. Creatinine Clearance 272 mL/min (70-130); Calcium 9.5 mg/dL (7.8-10.44); Carbon Dioxide 27 mmol/L (22-29); Chloride 107 mmol/L (98-107); Glucose 104 mg/dL (70-105); Magnesium 1.8 mg/dL (1.6-2.6); Potassium 3.9 mmol/L (3.5-5.1); Sodium 141 mmol/L (136-145)
[2021-01-07] MEDS ORDERED: Magnesium 2 GM/50 ML 2 GM in Premix Bag 1 BAG IVPB SCH (06:30)
[2021-01-07] MEDS: Enoxaparin Sodium 40 MG/0.4 ML SYRINGE SC SCH ×2 (09:14→22:14)
[2021-01-07] MEDS: methylPREDNISolone Sod Succ 40 MG VIAL IVP SCH (09:14)
[2021-01-07] MEDS: Ferrous Gluconate 324 MG TAB PO SCH (09:15)
[2021-01-07] MEDS: Insulin Glargine 15 UNITS in Pre-Filled Syringe 1 EACH SC SCH ×2 (09:15→22:14)
[2021-01-07] MEDS: Amoxicillin/Potassium Clav 875 MG TAB PER TUBE SCH ×2 (09:15→22:14)
[2021-01-07] MEDS: Ketorolac Tromethamine 30 MG/ML VIAL IVP PRN (09:22)
[2021-01-07] MEDS: Pantoprazole 40 MG VIAL IVP SCH ×2 (09:22→22:14)
[2021-01-07] MEDS: HumaLOG 300 UNITS/3 ML VIAL SC PRN ×2 (12:11→16:51)
[2021-01-07] MEDS: MAGNESIUM SULFATE IV SCH (22:17)
[2021-01-07] MEDS: POTASSIUM ACETATE IV SCH (22:17)
[2021-01-07] MEDS: [UNRECOGNIZED DRUG - OTHER] IV SCH (22:17)
[2021-01-07] MEDS: MULTIVITAMINS IV SCH (22:17)
[2021-01-08 03:29] LABS: #Eosinphils 0.1 thou/uL (0.0-0.7); #Lymphocytes 1.5 thou/uL (1.20-3.40); #Monocytes 0.6 thou/uL (0.11-0.59); %Basophils 0.3 % (0.0-1.0); %Eosinophils 1.4 % (0.0-10.0); %Lymphocytes 14.6 % (21.0-51.0); %Monocytes 5.9 % (0.0-10.0); %Neutrophils 77.7 % (42.0-75.0); Mean Corpuscular HGB CONC 32.4 g/dL (32.0-36.0); Mean Corpuscular Hemoglobin 28.2 pg (27.0-31.0); Mean Platelet Volume 10.6 fL (7.4-10.4); Platelet Count 259 thou/uL (130-400); Red Blood Cell (RBC) Count 3.21 mill/uL (4.20-5.40); White Blood Cell (WBC) Count 10.3 thou/uL (4.8-10.8)
[2021-01-08 03:47] LABS: Phosphorus 3.7 mg/dL (2.3-4.7)
[2021-01-08 03:49] LABS: Anion Gap 13 mmol/L (10-20); BUN (Urea Nitrogen) 22 mg/dL (7.0-18.7); Calc. Creatinine Clearance 255 mL/min (70-130); Calcium 9.9 mg/dL (7.8-10.44); Carbon Dioxide 25 mmol/L (22-29); Chloride 106 mmol/L (98-107); Glucose 121 mg/dL (70-105); Potassium 4.1 mmol/L (3.5-5.1); Sodium 140 mmol/L (136-145)
[2021-01-08] MEDS ORDERED: Magnesium 2 GM/50 ML 2 GM in Premix Bag 1 BAG IVPB SCH (06:30)
[2021-01-08] MEDS: Ferrous Gluconate 324 MG TAB PO SCH (08:10)
[2021-01-08] MEDS: Amoxicillin/Potassium Clav 875 MG TAB PER TUBE SCH ×2 (08:10→20:57)
[2021-01-08] MEDS: Pantoprazole 40 MG VIAL IVP SCH ×2 (08:10→21:01)
[2021-01-08] MEDS: methylPREDNISolone Sod Succ 40 MG VIAL IVP SCH (08:10)
[2021-01-08] MEDS: Enoxaparin Sodium 40 MG/0.4 ML SYRINGE SC SCH ×2 (08:10→20:57)
[2021-01-08] MEDS: Insulin Glargine 15 UNITS in Pre-Filled Syringe 1 EACH SC SCH ×2 (10:12→20:58)
[2021-01-08] MEDS: HumaLOG 300 UNITS/3 ML VIAL SC PRN (16:10)
[2021-01-08] MEDS: Acetaminophen 325 MG TAB PO PRN (16:17)
[2021-01-08] MEDS: Donepezil HCl 10 MG TAB PO SCH (20:57)
[2021-01-08] MEDS: Metoprolol Tartrate 25 MG TAB PER TUBE SCH (20:58)
[2021-01-08] MEDS: MULTIVITAMINS IV SCH (22:42)
[2021-01-08] MEDS: [UNRECOGNIZED DRUG - OTHER] IV SCH (22:42)
[2021-01-08] MEDS: MAGNESIUM SULFATE IV SCH (22:42)
[2021-01-08] MEDS: POTASSIUM ACETATE IV SCH (22:42)
[2021-01-09 04:53] LABS: #Eosinphils 0.3 thou/uL (0.0-0.7); #Monocytes 0.8 thou/uL (0.11-0.59); #Neutrophils 9.2 thou/uL (1.40-6.50); %Basophils 0.2 % (0.0-1.0); %Eosinophils 2.3 % (0.0-10.0); %Lymphocytes 9.1 % (21.0-51.0); %Monocytes 6.8 % (0.0-10.0); %Neutrophils 81.7 % (42.0-75.0); Hemoglobin 8.8 g/dL (12.0-16.0); Mean Corpuscular HGB CONC 30.7 g/dL (32.0-36.0); Mean Corpuscular Hemoglobin 26.8 pg (27.0-31.0); Mean Corpuscular Volume 87.5 fL (78.0-98.0); Mean Platelet Volume 10.9 fL (7.4-10.4); Platelet Count 270 thou/uL (130-400); RBC Distribution Width 19.5 % (11.5-14.5); Red Blood Cell (RBC) Count 3.27 mill/uL (4.20-5.40); White Blood Cell (WBC) Count 11.2 thou/uL (4.8-10.8)
[2021-01-09 05:12] LABS: Anion Gap 12 mmol/L (10-20); BUN (Urea Nitrogen) 20 mg/dL (7.0-18.7); Calc. Creatinine Clearance 266 mL/min (70-130); Calcium 9.7 mg/dL (7.8-10.44); Carbon Dioxide 26 mmol/L (22-29); Chloride 107 mmol/L (98-107); Glucose 156 mg/dL (70-105); Potassium 4.1 mmol/L (3.5-5.1); Sodium 141 mmol/L (136-145)
[2021-01-09] MEDS ORDERED: Magnesium 2 GM/50 ML 2 GM in Premix Bag 1 BAG IVPB SCH (06:15)
[2021-01-09] MEDS: Amoxicillin/Potassium Clav 875 MG TAB PER TUBE SCH (08:32)
[2021-01-09] MEDS: Metoprolol Tartrate 25 MG TAB PER TUBE SCH ×2 (08:32→21:46)
[2021-01-09] MEDS: Enoxaparin Sodium 40 MG/0.4 ML SYRINGE SC SCH ×2 (08:32→21:47)
[2021-01-09] MEDS: Ferrous Gluconate 324 MG TAB PO SCH (08:32)
[2021-01-09] MEDS: Pantoprazole 40 MG VIAL IVP SCH ×2 (08:32→21:46)
[2021-01-09] MEDS: methylPREDNISolone Sod Succ 40 MG VIAL IVP SCH ×2 (08:32→22:32)
[2021-01-09] MEDS: Insulin Glargine 15 UNITS in Pre-Filled Syringe 1 EACH SC SCH ×2 (09:48→21:47)
[2021-01-09] MEDS: Modafinil 100 MG TAB PO SCH (10:24)
[2021-01-09] MEDS: HumaLOG 300 UNITS/3 ML VIAL SC PRN (16:11)
[2021-01-09] MEDS: Scopolamine 1.5 mg/72 hour Patch TOP SCH (18:42)
[2021-01-09] MEDS: Donepezil HCl 10 MG TAB PO SCH (21:46)
[2021-01-10] MEDS: MAGNESIUM SULFATE IV SCH (00:07)
[2021-01-10] MEDS: POTASSIUM ACETATE IV SCH (00:07)
[2021-01-10] MEDS: MULTIVITAMINS IV SCH (00:07)
[2021-01-10] MEDS: [UNRECOGNIZED DRUG - OTHER] IV SCH (00:07)
[2021-01-10 04:25] LABS: #Eosinphils 0.1 thou/uL (0.0-0.7); #Lymphocytes 1.2 thou/uL (1.20-3.40); #Monocytes 0.6 thou/uL (0.11-0.59); #Neutrophils 8.3 thou/uL (1.40-6.50); %Basophils 0.1 % (0.0-1.0); %Eosinophils 1.2 % (0.0-10.0); %Lymphocytes 11.4 % (21.0-51.0); %Monocytes 5.6 % (0.0-10.0); %Neutrophils 81.7 % (42.0-75.0); Hemoglobin 8.6 g/dL (12.0-16.0); Mean Corpuscular HGB CONC 31.9 g/dL (32.0-36.0); Mean Corpuscular Hemoglobin 27.9 pg (27.0-31.0); Mean Corpuscular Volume 87.5 fL (78.0-98.0); Mean Platelet Volume 11.2 fL (7.4-10.4); Platelet Count 230 thou/uL (130-400); RBC Distribution Width 18.9 % (11.5-14.5); Red Blood Cell (RBC) Count 3.07 mill/uL (4.20-5.40); White Blood Cell (WBC) Count 10.2 thou/uL (4.8-10.8)
[2021-01-10 04:38] LABS: Phosphorus 3.6 mg/dL (2.3-4.7)
[2021-01-10 04:40] LABS: Anion Gap 15 mmol/L (10-20); BUN (Urea Nitrogen) 21 mg/dL (7.0-18.7); Calc. Creatinine Clearance 278 mL/min (70-130); Calcium 9.6 mg/dL (7.8-10.44); Carbon Dioxide 22 mmol/L (22-29); Chloride 106 mmol/L (98-107); Glucose 172 mg/dL (70-105); Magnesium 1.9 mg/dL (1.6-2.6); Potassium 4.3 mmol/L (3.5-5.1); Sodium 139 mmol/L (136-145)
[2021-01-10] MEDS: HumaLOG 300 UNITS/3 ML VIAL SC PRN ×2 (05:13→17:11)
[2021-01-10] MEDS ORDERED: Magnesium 2 GM/50 ML 2 GM in Premix Bag 1 BAG IVPB SCH (06:30)
[2021-01-10] MEDS: Metoprolol Tartrate 25 MG TAB PER TUBE SCH ×2 (09:11→21:30)
[2021-01-10] MEDS: Ferrous Gluconate 324 MG TAB PO SCH (09:11)
[2021-01-10] MEDS: Pantoprazole 40 MG VIAL IVP SCH ×2 (09:12→21:32)
[2021-01-10] MEDS: methylPREDNISolone Sod Succ 40 MG VIAL IVP SCH ×2 (09:12→21:31)
[2021-01-10] MEDS: Enoxaparin Sodium 40 MG/0.4 ML SYRINGE SC SCH ×2 (09:12→21:30)
[2021-01-10] MEDS: Scopolamine 1.5 mg/72 hour Patch TOP SCH (09:13)
[2021-01-10 09:22] LABS: Actual Bicarbonate (HCO3v) 28 mEq/L (22-28); Base Excess 3.4 mEq/L (-2.0 to +3.0); Chloride (VBG) 109 mmol/L (98-106); Hemoglobin (Hb) 9.6 g/dL (11.7-16.0); Potassium (VBG) 3.82 mmol/L (3.70-5.30); Sodium 139.9 mmol/L (133-146); pH (venous) 7.46 (7.32-7.43)
[2021-01-10] MEDS: Insulin Glargine 15 UNITS in Pre-Filled Syringe 1 EACH SC SCH ×2 (10:41→22:32)
[2021-01-10] MEDS: Modafinil 100 MG TAB PO SCH (12:47)
[2021-01-10] MEDS: Donepezil HCl 10 MG TAB PO SCH (21:30)
[2021-01-11 04:18] LABS: #Eosinphils 0.2 thou/uL (0.0-0.7); #Lymphocytes 1.3 thou/uL (1.20-3.40); #Monocytes 0.7 thou/uL (0.11-0.59); #Neutrophils 8.5 thou/uL (1.40-6.50); %Basophils 0.4 % (0.0-1.0); %Eosinophils 1.5 % (0.0-10.0); %Lymphocytes 12.6 % (21.0-51.0); %Monocytes 6.1 % (0.0-10.0); %Neutrophils 79.4 % (42.0-75.0); Hemoglobin 9.4 g/dL (12.0-16.0); Mean Corpuscular HGB CONC 33.2 g/dL (32.0-36.0); Mean Corpuscular Hemoglobin 29.4 pg (27.0-31.0); Mean Corpuscular Volume 88.8 fL (78.0-98.0); Mean Platelet Volume 10.9 fL (7.4-10.4); Platelet Count 227 thou/uL (130-400); RBC Distribution Width 18.7 % (11.5-14.5); Red Blood Cell (RBC) Count 3.19 mill/uL (4.20-5.40); White Blood Cell (WBC) Count 10.7 thou/uL (4.8-10.8)
[2021-01-11 04:34] LABS: Phosphorus 3.9 mg/dL (2.3-4.7)
[2021-01-11 04:35] LABS: Anion Gap 12 mmol/L (10-20); BUN (Urea Nitrogen) 25 mg/dL (7.0-18.7); Calc. Creatinine Clearance 0 mL/min (70-130); Calcium 9.5 mg/dL (7.8-10.44); Carbon Dioxide 25 mmol/L (22-29); Chloride 108 mmol/L (98-107); Glucose 156 mg/dL (70-105); Magnesium 1.8 mg/dL (1.6-2.6); Sodium 141 mmol/L (136-145)
[2021-01-11] MEDS ORDERED: Magnesium 2 GM/50 ML 2 GM in Premix Bag 1 BAG IVPB SCH (05:15)
[2021-01-11] MEDS: HumaLOG 300 UNITS/3 ML VIAL SC PRN (05:34)
[2021-01-11] MEDS: methylPREDNISolone Sod Succ 40 MG VIAL IVP SCH ×2 (09:30→21:40)
[2021-01-11] MEDS: Enoxaparin Sodium 40 MG/0.4 ML SYRINGE SC SCH ×2 (09:30→21:40)
[2021-01-11] MEDS: Ferrous Gluconate 324 MG TAB PO SCH (09:31)
[2021-01-11] MEDS: Metoprolol Tartrate 25 MG TAB PER TUBE SCH ×2 (09:31→21:41)
[2021-01-11] MEDS: Saccharomyces boulardii 250 MG CAP PO SCH (09:31)
[2021-01-11] MEDS: Insulin Glargine 15 UNITS in Pre-Filled Syringe 1 EACH SC SCH ×2 (09:31→21:46)
[2021-01-11] MEDS: Pantoprazole 40 MG VIAL IVP SCH ×2 (09:34→21:40)
[2021-01-11] MEDS: Metamucil PACK PER TUBE SCH (09:53)
[2021-01-11] MEDS: hydrALAZINE 20 MG/ML VIAL SLOW IVP PRN (12:47)
[2021-01-12 04:03] LABS: #Eosinphils 0.1 thou/uL (0.0-0.7); #Lymphocytes 1.2 thou/uL (1.20-3.40); #Monocytes 0.6 thou/uL (0.11-0.59); #Neutrophils 11.4 thou/uL (1.40-6.50); %Basophils 0.1 % (0.0-1.0); %Eosinophils 0.8 % (0.0-10.0); %Lymphocytes 9.1 % (21.0-51.0); %Monocytes 4.1 % (0.0-10.0); %Neutrophils 85.9 % (42.0-75.0); Mean Corpuscular HGB CONC 31.6 g/dL (32.0-36.0); Mean Corpuscular Volume 88.7 fL (78.0-98.0); Mean Platelet Volume 11.3 fL (7.4-10.4); Platelet Count 243 thou/uL (130-400); RBC Distribution Width 18.3 % (11.5-14.5); Red Blood Cell (RBC) Count 3.21 mill/uL (4.20-5.40); White Blood Cell (WBC) Count 13.3 thou/uL (4.8-10.8)
[2021-01-12 04:15] LABS: Anion Gap 14 mmol/L (10-20); BUN (Urea Nitrogen) 27 mg/dL (7.0-18.7); Calc. Creatinine Clearance 0 mL/min (70-130); Calcium 9.5 mg/dL (7.8-10.44); Carbon Dioxide 21 mmol/L (22-29); Chloride 109 mmol/L (98-107); Glucose 185 mg/dL (70-105); Magnesium 1.8 mg/dL (1.6-2.6); Sodium 140 mmol/L (136-145)
[2021-01-12 04:16] LABS: Phosphorus 3.9 mg/dL (2.3-4.7)
[2021-01-12] MEDS ORDERED: Magnesium Sulfate 4 GM in Sodium Chloride 0.9% 250 ML 250 ML IVPB SCH (05:15)
[2021-01-12] MEDS ORDERED: Magnesium 2 GM/50 ML 2 GM in Premix Bag 1 BAG IVPB SCH (05:15)
[2021-01-12] MEDS: Saccharomyces boulardii 250 MG CAP PO SCH (09:36)
[2021-01-12] MEDS: Enoxaparin Sodium 40 MG/0.4 ML SYRINGE SC SCH ×2 (09:36→21:33)
[2021-01-12] MEDS: Ferrous Gluconate 324 MG TAB PO SCH (09:37)
[2021-01-12] MEDS: Insulin Glargine 15 UNITS in Pre-Filled Syringe 1 EACH SC SCH ×2 (09:37→21:34)
[2021-01-12] MEDS: methylPREDNISolone Sod Succ 40 MG VIAL IVP SCH ×2 (09:38→21:35)
[2021-01-12] MEDS: Pantoprazole 40 MG VIAL IVP SCH ×2 (09:38→21:34)
[2021-01-12] MEDS: Metamucil PACK PER TUBE SCH (09:38)
[2021-01-12] MEDS: Metoprolol Tartrate 25 MG TAB PER TUBE SCH ×2 (09:38→21:34)
[2021-01-12] MEDS: Modafinil 100 MG TAB PO SCH (09:51)
[2021-01-12] MEDS ORDERED: Iopamidol 370 76% 50 ML VIAL FS ONE (11:01)
[2021-01-12] MEDS ORDERED: Acetaminophen 325 MG TAB PER TUBE PRN (13:00)
[2021-01-12] MEDS: Scopolamine 1.5 mg/72 hour Patch TOP SCH (13:04)
[2021-01-13 04:05] LABS: #Basophils 0.1 thou/uL (0.0-0.2); #Lymphocytes 0.9 thou/uL (1.20-3.40); #Monocytes 0.3 thou/uL (0.11-0.59); #Neutrophils 10.6 thou/uL (1.40-6.50); %Basophils 0.5 % (0.0-1.0); %Eosinophils 0.3 % (0.0-10.0); %Lymphocytes 7.5 % (21.0-51.0); %Monocytes 2.4 % (0.0-10.0); %Neutrophils 89.3 % (42.0-75.0); Hemoglobin 8.5 g/dL (12.0-16.0); Mean Corpuscular Hemoglobin 28.1 pg (27.0-31.0); Mean Corpuscular Volume 90.5 fL (78.0-98.0); Platelet Count 231 thou/uL (130-400); RBC Distribution Width 17.9 % (11.5-14.5); Red Blood Cell (RBC) Count 3.03 mill/uL (4.20-5.40); White Blood Cell (WBC) Count 11.9 thou/uL (4.8-10.8)
[2021-01-13 04:21] LABS: Phosphorus 3.7 mg/dL (2.3-4.7)
[2021-01-13 04:22] LABS: Anion Gap 13 mmol/L (10-20); BUN (Urea Nitrogen) 27 mg/dL (7.0-18.7); Calc. Creatinine Clearance 0 mL/min (70-130); Calcium 9.4 mg/dL (7.8-10.44); Carbon Dioxide 24 mmol/L (22-29); Chloride 109 mmol/L (98-107); Glucose 192 mg/dL (70-105); Magnesium 1.7 mg/dL (1.6-2.6); Potassium 3.7 mmol/L (3.5-5.1); Sodium 142 mmol/L (136-145)
[2021-01-13] MEDS ORDERED: Magnesium 2 GM/50 ML 2 GM in Premix Bag 1 BAG IVPB SCH (06:00)
[2021-01-13] MEDS: Ferrous Gluconate 324 MG TAB PO SCH (07:30)
[2021-01-13] MEDS: Enoxaparin Sodium 40 MG/0.4 ML SYRINGE SC SCH ×2 (09:14→21:29)
[2021-01-13] MEDS: Saccharomyces boulardii 250 MG CAP PER TUBE SCH (09:17)
[2021-01-13] MEDS: Pantoprazole 40 MG VIAL IVP SCH (09:17)
[2021-01-13] MEDS: methylPREDNISolone Sod Succ 40 MG VIAL IVP SCH ×2 (09:17→21:30)
[2021-01-13] MEDS: Metoprolol Tartrate 25 MG TAB PER TUBE SCH ×2 (09:17→21:30)
[2021-01-13] MEDS: Metamucil PACK PER TUBE SCH (09:18)
[2021-01-13] MEDS: Insulin Glargine 15 UNITS in Pre-Filled Syringe 1 EACH SC SCH ×2 (09:22→21:30)
[2021-01-13] MEDS ORDERED: Sodium Bicarbonate 2.5 MEQ/5 ML VIAL ONE (11:11)
[2021-01-13] MEDS ORDERED: Rocuronium Bromide 10 MG/ML (10ML VIAL) ONE (13:34)
[2021-01-13] MEDS ORDERED: Vecuronium 10 MG VIAL ONE (13:34)
[2021-01-13] MEDS: Pantoprazole 40 MG GRANULES PACKET PER TUBE SCH (21:31)
[2021-01-14 03:58] LABS: #Monocytes 0.4 thou/uL (0.11-0.59); #Neutrophils 12.8 thou/uL (1.40-6.50); %Basophils 0.2 % (0.0-1.0); %Eosinophils 0.3 % (0.0-10.0); %Lymphocytes 7.1 % (21.0-51.0); %Monocytes 3.1 % (0.0-10.0); %Neutrophils 89.3 % (42.0-75.0); Hemoglobin 8.9 g/dL (12.0-16.0); Mean Corpuscular HGB CONC 31.5 g/dL (32.0-36.0); Mean Corpuscular Hemoglobin 28.6 pg (27.0-31.0); Mean Corpuscular Volume 90.9 fL (78.0-98.0); Platelet Count 265 thou/uL (130-400); RBC Distribution Width 17.5 % (11.5-14.5); Red Blood Cell (RBC) Count 3.12 mill/uL (4.20-5.40); White Blood Cell (WBC) Count 14.3 thou/uL (4.8-10.8)
[2021-01-14 04:18] LABS: Anion Gap 13 mmol/L (10-20); BUN (Urea Nitrogen) 24 mg/dL (7.0-18.7); Calc. Creatinine Clearance 306 mL/min (70-130); Calcium 9.5 mg/dL (7.8-10.44); Carbon Dioxide 24 mmol/L (22-29); Chloride 112 mmol/L (98-107); Glucose 207 mg/dL (70-105); Potassium 3.6 mmol/L (3.5-5.1); Sodium 145 mmol/L (136-145)
[2021-01-14] MEDS ORDERED: Magnesium 2 GM/50 ML 2 GM in Premix Bag 1 BAG IVPB SCH (06:15)
[2021-01-14] MEDS: HumaLOG 300 UNITS/3 ML VIAL SC PRN (06:36)
[2021-01-14] MEDS: methylPREDNISolone Sod Succ 40 MG VIAL IVP SCH ×2 (09:51→21:09)
[2021-01-14] MEDS: Enoxaparin Sodium 40 MG/0.4 ML SYRINGE SC SCH ×2 (09:51→21:09)
[2021-01-14] MEDS: Pantoprazole 40 MG GRANULES PACKET PER TUBE SCH ×2 (09:51→21:10)
[2021-01-14] MEDS: Insulin Glargine 15 UNITS in Pre-Filled Syringe 1 EACH SC SCH ×2 (09:51→21:11)
[2021-01-14] MEDS: Metamucil PACK PER TUBE SCH (09:51)
[2021-01-14] MEDS: Saccharomyces boulardii 250 MG CAP PER TUBE SCH (09:52)
[2021-01-14] MEDS: Ferrous Gluconate 324 MG TAB PO SCH (09:52)
[2021-01-14] MEDS: Metoprolol Tartrate 25 MG TAB PER TUBE SCH ×2 (09:52→21:09)
[2021-01-14] MEDS: Acetaminophen 650 MG/20.3 ML UDCUP PER TUBE PRN (12:12)
[2021-01-14 14:16] VITALS: BMI 54.8
[2021-01-15] MEDS: Acetaminophen 650 MG/20.3 ML UDCUP PER TUBE PRN (02:00)
[2021-01-15 03:37] LABS: #Lymphocytes 0.6 thou/uL (1.20-3.40); #Monocytes 0.3 thou/uL (0.11-0.59); #Neutrophils 11.9 thou/uL (1.40-6.50); %Basophils 0.2 % (0.0-1.0); %Eosinophils 0.3 % (0.0-10.0); %Lymphocytes 4.9 % (21.0-51.0); %Monocytes 2.3 % (0.0-10.0); %Neutrophils 92.2 % (42.0-75.0); Hemoglobin 8.4 g/dL (12.0-16.0); Mean Corpuscular HGB CONC 32.3 g/dL (32.0-36.0); Mean Corpuscular Hemoglobin 29.2 pg (27.0-31.0); Mean Corpuscular Volume 90.3 fL (78.0-98.0); Platelet Count 228 thou/uL (130-400); RBC Distribution Width 17.1 % (11.5-14.5); Red Blood Cell (RBC) Count 2.89 mill/uL (4.20-5.40); White Blood Cell (WBC) Count 12.9 thou/uL (4.8-10.8)
[2021-01-15 03:55] LABS: Phosphorus 3.3 mg/dL (2.3-4.7)
[2021-01-15 03:57] LABS: Anion Gap 15 mmol/L (10-20); BUN (Urea Nitrogen) 25 mg/dL (7.0-18.7); Calc. Creatinine Clearance 325 mL/min (70-130); Calcium 9.2 mg/dL (7.8-10.44); Carbon Dioxide 22 mmol/L (22-29); Chloride 112 mmol/L (98-107); Glucose 240 mg/dL (70-105); Magnesium 1.9 mg/dL (1.6-2.6); Potassium 3.5 mmol/L (3.5-5.1); Sodium 145 mmol/L (136-145)
[2021-01-15] MEDS ORDERED: Magnesium 2 GM/50 ML 2 GM in Premix Bag 1 BAG IVPB SCH (06:15)
[2021-01-15] MEDS: Enoxaparin Sodium 40 MG/0.4 ML SYRINGE SC SCH ×2 (09:40→21:16)
[2021-01-15] MEDS: Pantoprazole 40 MG GRANULES PACKET PER TUBE SCH ×2 (09:40→21:16)
[2021-01-15] MEDS: Metoprolol Tartrate 25 MG TAB PER TUBE SCH ×2 (09:40→21:16)
[2021-01-15] MEDS: Saccharomyces boulardii 250 MG CAP PER TUBE SCH (09:41)
[2021-01-15] MEDS: Ferrous Gluconate 324 MG TAB PO SCH (09:41)
[2021-01-15] MEDS: Metamucil PACK PER TUBE SCH (09:41)
[2021-01-15] MEDS: methylPREDNISolone Sod Succ 40 MG VIAL IVP SCH (09:41)
[2021-01-15] MEDS: Insulin Glargine 15 UNITS in Pre-Filled Syringe 1 EACH SC SCH ×2 (09:43→21:17)
[2021-01-15] MEDS: Potassium Chloride 20 MEQ in Premix Bag 1 BAG IVPB SCH ×2 (09:47→14:18)
[2021-01-15] MEDS: cefTRIAXone\\ROCEPHIN 2 GM in Sodium Chloride 0.9% 100 ML IVPB SCH (14:06)
[2021-01-15] MEDS: Scopolamine 1.5 mg/72 hour Patch TOP SCH (14:07)
[2021-01-15] MEDS: HumaLOG 300 UNITS/3 ML VIAL SC PRN (16:53)
[2021-01-16 03:28] LABS: #Monocytes 0.2 thou/uL (0.11-0.59); #Neutrophils 13.1 thou/uL (1.40-6.50); %Basophils 0.2 % (0.0-1.0); %Eosinophils 0.2 % (0.0-10.0); %Lymphocytes 6.7 % (21.0-51.0); %Monocytes 1.6 % (0.0-10.0); %Neutrophils 91.3 % (42.0-75.0); Hemoglobin 8.6 g/dL (12.0-16.0); Mean Corpuscular HGB CONC 31.8 g/dL (32.0-36.0); Mean Corpuscular Volume 91.1 fL (78.0-98.0); Mean Platelet Volume 10.7 fL (7.4-10.4); Platelet Count 223 thou/uL (130-400); RBC Distribution Width 16.8 % (11.5-14.5); Red Blood Cell (RBC) Count 2.98 mill/uL (4.20-5.40); White Blood Cell (WBC) Count 14.3 thou/uL (4.8-10.8)
[2021-01-16 03:46] LABS: Phosphorus 3.2 mg/dL (2.3-4.7)
[2021-01-16 03:55] LABS: Anion Gap 15 mmol/L (10-20); BUN (Urea Nitrogen) 26 mg/dL (7.0-18.7); Calc. Creatinine Clearance 312 mL/min (70-130); Calcium 9.3 mg/dL (7.8-10.44); Carbon Dioxide 22 mmol/L (22-29); Chloride 113 mmol/L (98-107); Glucose 255 mg/dL (70-105); Magnesium 2.1 mg/dL (1.6-2.6); Potassium 4.2 mmol/L (3.5-5.1); Sodium 146 mmol/L (136-145)
[2021-01-16] MEDS: methylPREDNISolone Sod Succ 40 MG VIAL IVP SCH ×3 (07:53→20:17)
[2021-01-16] MEDS: Insulin Glargine 15 UNITS in Pre-Filled Syringe 1 EACH SC SCH ×2 (09:09→20:16)
[2021-01-16] MEDS: Metamucil PACK PER TUBE SCH (09:09)
[2021-01-16] MEDS: Saccharomyces boulardii 250 MG CAP PER TUBE SCH (09:10)
[2021-01-16] MEDS: Pantoprazole 40 MG GRANULES PACKET PER TUBE SCH ×2 (09:10→20:17)
[2021-01-16] MEDS: Metoprolol Tartrate 25 MG TAB PER TUBE SCH ×2 (09:10→20:17)
[2021-01-16] MEDS: Ferrous Gluconate 324 MG TAB PO SCH (09:10)
[2021-01-16] MEDS: Enoxaparin Sodium 40 MG/0.4 ML SYRINGE SC SCH ×2 (09:10→20:16)
[2021-01-16] MEDS: cefTRIAXone\\ROCEPHIN 2 GM in Sodium Chloride 0.9% 100 ML IVPB SCH (12:36)
[2021-01-16] MEDS: HumaLOG 300 UNITS/3 ML VIAL SC PRN (22:35)
[2021-01-17 03:41] LABS: #Basophils 0.1 thou/uL (0.0-0.2); #Monocytes 0.4 thou/uL (0.11-0.59); #Neutrophils 10.8 thou/uL (1.40-6.50); %Basophils 0.8 % (0.0-1.0); %Eosinophils 0.4 % (0.0-10.0); %Lymphocytes 8.2 % (21.0-51.0); %Monocytes 3.5 % (0.0-10.0); %Neutrophils 87.2 % (42.0-75.0); Hemoglobin 8.7 g/dL (12.0-16.0); Mean Corpuscular HGB CONC 31.5 g/dL (32.0-36.0); Mean Corpuscular Hemoglobin 28.8 pg (27.0-31.0); Mean Corpuscular Volume 91.4 fL (78.0-98.0); Mean Platelet Volume 10.9 fL (7.4-10.4); Platelet Count 205 thou/uL (130-400); RBC Distribution Width 16.6 % (11.5-14.5); Red Blood Cell (RBC) Count 3.02 mill/uL (4.20-5.40); White Blood Cell (WBC) Count 12.4 thou/uL (4.8-10.8)
[2021-01-17 03:58] LABS: Anion Gap 16 mmol/L (10-20); BUN (Urea Nitrogen) 26 mg/dL (7.0-18.7); Calc. Creatinine Clearance 331 mL/min (70-130); Calcium 9.3 mg/dL (7.8-10.44); Carbon Dioxide 21 mmol/L (22-29); Chloride 116 mmol/L (98-107); Glucose 224 mg/dL (70-105); Magnesium 1.8 mg/dL (1.6-2.6); Phosphorus 3.5 mg/dL (2.3-4.7); Potassium 3.5 mmol/L (3.5-5.1); Sodium 149 mmol/L (136-145)
[2021-01-17] MEDS: HumaLOG 300 UNITS/3 ML VIAL SC PRN (05:46)
[2021-01-17] MEDS ORDERED: Potassium Chloride 40 MEQ in Sodium Chloride 0.9% 250 ML 250 ML IVPB SCH (06:15)
[2021-01-17] MEDS ORDERED: Magnesium 2 GM/50 ML 2 GM in Premix Bag 1 BAG IVPB SCH (06:15)
[2021-01-17] MEDS: Metamucil PACK PER TUBE SCH (08:55)
[2021-01-17] MEDS: Insulin Glargine 15 UNITS in Pre-Filled Syringe 1 EACH SC SCH ×2 (08:55→21:02)
[2021-01-17] MEDS: Metoprolol Tartrate 25 MG TAB PER TUBE SCH ×2 (08:56→21:04)
[2021-01-17] MEDS: Pantoprazole 40 MG GRANULES PACKET PER TUBE SCH ×2 (08:56→21:04)
[2021-01-17] MEDS: Saccharomyces boulardii 250 MG CAP PER TUBE SCH (08:56)
[2021-01-17] MEDS: Enoxaparin Sodium 40 MG/0.4 ML SYRINGE SC SCH ×2 (08:56→21:03)
[2021-01-17] MEDS: methylPREDNISolone Sod Succ 40 MG VIAL IVP SCH ×2 (08:56→21:02)
[2021-01-17] MEDS: Ferrous Gluconate 324 MG TAB PO SCH (08:56)
[2021-01-17] MEDS: cefTRIAXone\\ROCEPHIN 2 GM in Sodium Chloride 0.9% 100 ML IVPB SCH (11:59)
[2021-01-17] MEDS: Dextrose 5% in Water 1,000 ML IV SCH (12:53)
[2021-01-18] MEDS: Dextrose 5% in Water 1,000 ML IV SCH ×2 (03:35→15:41)
[2021-01-18 03:40] LABS: #Eosinphils 0.2 thou/uL (0.0-0.7); #Lymphocytes 1.5 thou/uL (1.20-3.40); #Monocytes 0.6 thou/uL (0.11-0.59); #Neutrophils 8.7 thou/uL (1.40-6.50); %Basophils 0.1 % (0.0-1.0); %Eosinophils 1.7 % (0.0-10.0); %Lymphocytes 13.3 % (21.0-51.0); %Monocytes 5.3 % (0.0-10.0); %Neutrophils 79.7 % (42.0-75.0); Hemoglobin 8.2 g/dL (12.0-16.0); Mean Corpuscular HGB CONC 31.5 g/dL (32.0-36.0); Mean Corpuscular Hemoglobin 28.6 pg (27.0-31.0); Mean Corpuscular Volume 90.6 fL (78.0-98.0); Mean Platelet Volume 10.3 fL (7.4-10.4); Platelet Count 237 thou/uL (130-400); RBC Distribution Width 16.6 % (11.5-14.5); Red Blood Cell (RBC) Count 2.88 mill/uL (4.20-5.40); White Blood Cell (WBC) Count 10.9 thou/uL (4.8-10.8)
[2021-01-18 04:07] LABS: Anion Gap 13 mmol/L (10-20); BUN (Urea Nitrogen) 22 mg/dL (7.0-18.7); Calc. Creatinine Clearance 361 mL/min (70-130); Calcium 9.3 mg/dL (7.8-10.44); Carbon Dioxide 22 mmol/L (22-29); Chloride 116 mmol/L (98-107); Glucose 165 mg/dL (70-105); Magnesium 1.8 mg/dL (1.6-2.6); Potassium 3.2 mmol/L (3.5-5.1); Sodium 148 mmol/L (136-145)
[2021-01-18 04:08] LABS: Phosphorus 3.3 mg/dL (2.3-4.7)
[2021-01-18] MEDS: HumaLOG 300 UNITS/3 ML VIAL SC PRN (05:28)
[2021-01-18] MEDS ORDERED: Magnesium 2 GM/50 ML 2 GM in Premix Bag 1 BAG IVPB SCH (06:15)
[2021-01-18] MEDS ORDERED: Potassium Chloride 20 MEQ TAB PO SCH (06:45)
[2021-01-18] MEDS: Metoprolol Tartrate 25 MG TAB PER TUBE SCH ×2 (08:25→20:39)
[2021-01-18] MEDS: Enoxaparin Sodium 40 MG/0.4 ML SYRINGE SC SCH (08:25)
[2021-01-18] MEDS: Insulin Glargine 15 UNITS in Pre-Filled Syringe 1 EACH SC SCH ×2 (08:25→20:38)
[2021-01-18] MEDS: Ferrous Gluconate 324 MG TAB PO SCH (08:25)
[2021-01-18] MEDS: Metamucil PACK PER TUBE SCH (08:26)
[2021-01-18] MEDS: Saccharomyces boulardii 250 MG CAP PER TUBE SCH (08:26)
[2021-01-18] MEDS: Pantoprazole 40 MG GRANULES PACKET PER TUBE SCH ×2 (08:26→20:39)
[2021-01-18] MEDS: methylPREDNISolone Sod Succ 40 MG VIAL IVP SCH ×2 (08:30→20:41)
[2021-01-18] MEDS: Potassium Chloride 20 MEQ in Premix Bag 1 BAG IVPB SCH ×2 (08:42→14:50)
[2021-01-18] MEDS ORDERED: GASTROGRAFIN 30 ML BOT ONE (11:24)
[2021-01-18] MEDS: Scopolamine 1.5 mg/72 hour Patch TOP SCH (14:39)
[2021-01-18] MEDS: cefTRIAXone\\ROCEPHIN 2 GM in Sodium Chloride 0.9% 100 ML IVPB SCH (14:40)
[2021-01-19] MEDS: Dextrose 5% in Water 1,000 ML IV SCH ×2 (02:18→16:41)
[2021-01-19 03:43] LABS: #Eosinphils 0.1 thou/uL (0.0-0.7); #Lymphocytes 1.3 thou/uL (1.20-3.40); #Monocytes 0.4 thou/uL (0.11-0.59); #Neutrophils 7.6 thou/uL (1.40-6.50); %Basophils 0.3 % (0.0-1.0); %Lymphocytes 13.8 % (21.0-51.0); %Monocytes 4.7 % (0.0-10.0); %Neutrophils 80.3 % (42.0-75.0); Hemoglobin 8.1 g/dL (12.0-16.0); Mean Corpuscular HGB CONC 31.6 g/dL (32.0-36.0); Mean Corpuscular Hemoglobin 28.5 pg (27.0-31.0); Mean Corpuscular Volume 90.1 fL (78.0-98.0); Mean Platelet Volume 10.5 fL (7.4-10.4); Platelet Count 246 thou/uL (130-400); RBC Distribution Width 16.6 % (11.5-14.5); Red Blood Cell (RBC) Count 2.85 mill/uL (4.20-5.40); White Blood Cell (WBC) Count 9.5 thou/uL (4.8-10.8)
[2021-01-19 03:55] LABS: Phosphorus 3.2 mg/dL (2.3-4.7)
[2021-01-19 03:59] LABS: Anion Gap 14 mmol/L (10-20); BUN (Urea Nitrogen) 18 mg/dL (7.0-18.7); Calc. Creatinine Clearance 369 mL/min (70-130); Calcium 9.1 mg/dL (7.8-10.44); Carbon Dioxide 22 mmol/L (22-29); Chloride 115 mmol/L (98-107); Glucose 187 mg/dL (70-105); Magnesium 1.8 mg/dL (1.6-2.6); Potassium 3.6 mmol/L (3.5-5.1); Sodium 147 mmol/L (136-145)
[2021-01-19] MEDS ORDERED: Magnesium 2 GM/50 ML 2 GM in Premix Bag 1 BAG IVPB SCH (06:15)
[2021-01-19] MEDS: Ferrous Gluconate 324 MG TAB PO SCH (07:32)
[2021-01-19] MEDS: Pantoprazole 40 MG GRANULES PACKET PER TUBE SCH ×2 (07:33→20:47)
[2021-01-19] MEDS: Saccharomyces boulardii 250 MG CAP PER TUBE SCH (07:33)
[2021-01-19] MEDS: Metoprolol Tartrate 25 MG TAB PER TUBE SCH ×2 (07:33→20:47)
[2021-01-19] MEDS: Metamucil PACK PER TUBE SCH (07:33)
[2021-01-19] MEDS: methylPREDNISolone Sod Succ 40 MG VIAL IVP SCH ×2 (07:34→20:46)
[2021-01-19] MEDS: Insulin Glargine 15 UNITS in Pre-Filled Syringe 1 EACH SC SCH ×2 (07:36→20:46)
[2021-01-19] MEDS: cefTRIAXone\\ROCEPHIN 2 GM in Sodium Chloride 0.9% 100 ML IVPB SCH (11:23)
[2021-01-20 03:46] LABS: #Eosinphils 0.1 thou/uL (0.0-0.7); #Lymphocytes 1.1 thou/uL (1.20-3.40); #Monocytes 0.4 thou/uL (0.11-0.59); #Neutrophils 8.4 thou/uL (1.40-6.50); %Lymphocytes 10.9 % (21.0-51.0); %Monocytes 3.8 % (0.0-10.0); %Neutrophils 84.3 % (42.0-75.0); Hemoglobin 8.2 g/dL (12.0-16.0); Mean Corpuscular HGB CONC 31.2 g/dL (32.0-36.0); Mean Corpuscular Hemoglobin 27.8 pg (27.0-31.0); Mean Corpuscular Volume 89.3 fL (78.0-98.0); Mean Platelet Volume 10.1 fL (7.4-10.4); Platelet Count 239 thou/uL (130-400); RBC Distribution Width 16.5 % (11.5-14.5); Red Blood Cell (RBC) Count 2.94 mill/uL (4.20-5.40)
[2021-01-20 04:06] LABS: Anion Gap 13 mmol/L (10-20); BUN (Urea Nitrogen) 15 mg/dL (7.0-18.7); Calc. Creatinine Clearance 378 mL/min (70-130); Calcium 8.6 mg/dL (7.8-10.44); Carbon Dioxide 22 mmol/L (22-29); Chloride 111 mmol/L (98-107); Glucose 192 mg/dL (70-105); Magnesium 1.6 mg/dL (1.6-2.6); Potassium 3.3 mmol/L (3.5-5.1); Sodium 143 mmol/L (136-145)
[2021-01-20] MEDS: Dextrose 5% in Water 1,000 ML IV SCH ×2 (05:24→20:42)
[2021-01-20] MEDS: HumaLOG 300 UNITS/3 ML VIAL SC PRN (05:27)
[2021-01-20] MEDS ORDERED: Magnesium 2 GM/50 ML 2 GM in Premix Bag 1 BAG IVPB SCH (06:15)
[2021-01-20] MEDS: methylPREDNISolone Sod Succ 40 MG VIAL IVP SCH ×2 (07:18→21:26)
[2021-01-20] MEDS: Insulin Glargine 15 UNITS in Pre-Filled Syringe 1 EACH SC SCH ×2 (07:18→21:27)
[2021-01-20] MEDS: Metamucil PACK PER TUBE SCH (07:18)
[2021-01-20] MEDS: Pantoprazole 40 MG GRANULES PACKET PER TUBE SCH ×2 (07:19→21:26)
[2021-01-20] MEDS: Metoprolol Tartrate 25 MG TAB PER TUBE SCH ×2 (07:19→21:26)
[2021-01-20] MEDS: Ferrous Gluconate 324 MG TAB PO SCH (07:19)
[2021-01-20] MEDS: Saccharomyces boulardii 250 MG CAP PER TUBE SCH (07:19)
[2021-01-20] MEDS: Potassium Chloride 20 MEQ in Premix Bag 1 BAG IVPB SCH ×2 (07:22→08:48)
[2021-01-20] MEDS: Enoxaparin Sodium 40 MG/0.4 ML SYRINGE SC SCH ×2 (09:34→21:26)
[2021-01-20] MEDS: cefTRIAXone\\ROCEPHIN 2 GM in Sodium Chloride 0.9% 100 ML IVPB SCH (10:47)
[2021-01-21 06:28] LABS: #Eosinphils 0.1 thou/uL (0.0-0.7); #Lymphocytes 1.4 thou/uL (1.20-3.40); #Monocytes 0.9 thou/uL (0.11-0.59); #Neutrophils 9.5 thou/uL (1.40-6.50); %Basophils 0.1 % (0.0-1.0); %Eosinophils 1.2 % (0.0-10.0); %Lymphocytes 11.7 % (21.0-51.0); %Monocytes 7.3 % (0.0-10.0); %Neutrophils 79.7 % (42.0-75.0); Hemoglobin 10.4 g/dL (12.0-16.0); Mean Corpuscular HGB CONC 31.8 g/dL (32.0-36.0); Mean Corpuscular Hemoglobin 28.7 pg (27.0-31.0); Mean Corpuscular Volume 90.3 fL (78.0-98.0); Mean Platelet Volume 10.2 fL (7.4-10.4); Platelet Count 246 thou/uL (130-400); RBC Distribution Width 16.5 % (11.5-14.5); Red Blood Cell (RBC) Count 3.61 mill/uL (4.20-5.40); White Blood Cell (WBC) Count 11.9 thou/uL (4.8-10.8)
[2021-01-21 06:48] LABS: Anion Gap 14 mmol/L (10-20); BUN (Urea Nitrogen) 13 mg/dL (7.0-18.7); Calc. Creatinine Clearance 361 mL/min (70-130); Carbon Dioxide 23 mmol/L (22-29); Chloride 110 mmol/L (98-107); Glucose 181 mg/dL (70-105); Magnesium 1.8 mg/dL (1.6-2.6); Potassium 3.6 mmol/L (3.5-5.1); Sodium 143 mmol/L (136-145)
[2021-01-21] MEDS: methylPREDNISolone Sod Succ 40 MG VIAL IVP SCH ×2 (07:10→21:20)
[2021-01-21] MEDS: Metamucil PACK PER TUBE SCH (07:10)
[2021-01-21] MEDS: Enoxaparin Sodium 40 MG/0.4 ML SYRINGE SC SCH ×2 (07:11→21:20)
[2021-01-21] MEDS: Pantoprazole 40 MG GRANULES PACKET PER TUBE SCH ×2 (07:11→21:21)
[2021-01-21] MEDS: Metoprolol Tartrate 25 MG TAB PER TUBE SCH ×2 (07:11→21:21)
[2021-01-21] MEDS: Ferrous Gluconate 324 MG TAB PO SCH (07:11)
[2021-01-21] MEDS: Saccharomyces boulardii 250 MG CAP PER TUBE SCH (07:12)
[2021-01-21] MEDS ORDERED: Magnesium 2 GM/50 ML 2 GM in Premix Bag 1 BAG IVPB SCH (07:15)
[2021-01-21] MEDS: Insulin Glargine 15 UNITS in Pre-Filled Syringe 1 EACH SC SCH ×2 (08:31→21:20)
[2021-01-21] MEDS: Dextrose 5% in Water 1,000 ML IV SCH ×2 (09:16→23:00)
[2021-01-21] MEDS: hydrALAZINE 20 MG/ML VIAL SLOW IVP PRN (09:25)
[2021-01-21] MEDS: cefTRIAXone\\ROCEPHIN 2 GM in Sodium Chloride 0.9% 100 ML IVPB SCH (11:12)
[2021-01-21] MEDS: Scopolamine 1.5 mg/72 hour Patch TOP SCH (12:41)
[2021-01-21] MEDS: HumaLOG 300 UNITS/3 ML VIAL SC PRN (15:53)
[2021-01-22 04:01] LABS: #Eosinphils 0.1 thou/uL (0.0-0.7); #Monocytes 0.5 thou/uL (0.11-0.59); #Neutrophils 9.3 thou/uL (1.40-6.50); %Basophils 0.1 % (0.0-1.0); %Lymphocytes 9.1 % (21.0-51.0); %Monocytes 4.1 % (0.0-10.0); %Neutrophils 85.7 % (42.0-75.0); Hemoglobin 8.7 g/dL (12.0-16.0); Mean Corpuscular HGB CONC 32.3 g/dL (32.0-36.0); Mean Corpuscular Hemoglobin 28.6 pg (27.0-31.0); Mean Corpuscular Volume 88.7 fL (78.0-98.0); Mean Platelet Volume 10.1 fL (7.4-10.4); Platelet Count 274 thou/uL (130-400); RBC Distribution Width 16.6 % (11.5-14.5); Red Blood Cell (RBC) Count 3.05 mill/uL (4.20-5.40); White Blood Cell (WBC) Count 10.9 thou/uL (4.8-10.8)
[2021-01-22 04:35] LABS: Phosphorus 3.2 mg/dL (2.3-4.7)
[2021-01-22 04:37] LABS: Anion Gap 13 mmol/L (10-20); BUN (Urea Nitrogen) 13 mg/dL (7.0-18.7); Calc. Creatinine Clearance 369 mL/min (70-130); Calcium 8.9 mg/dL (7.8-10.44); Carbon Dioxide 22 mmol/L (22-29); Chloride 109 mmol/L (98-107); Glucose 229 mg/dL (70-105); Magnesium 1.9 mg/dL (1.6-2.6); Potassium 3.2 mmol/L (3.5-5.1); Sodium 141 mmol/L (136-145)
[2021-01-22] MEDS: HumaLOG 300 UNITS/3 ML VIAL SC PRN ×2 (06:23→15:20)
[2021-01-22] MEDS ORDERED: Magnesium 2 GM/50 ML 2 GM in Premix Bag 1 BAG IVPB SCH (06:30)
[2021-01-22] MEDS ORDERED: Potassium Chloride 40 MEQ in Sodium Chloride 0.9% 250 ML 250 ML IVPB SCH (07:00)
[2021-01-22] MEDS: predniSONE 5 MG TAB PO SCH (08:11)
[2021-01-22] MEDS: Insulin Glargine 15 UNITS in Pre-Filled Syringe 1 EACH SC SCH ×2 (08:11→21:47)
[2021-01-22] MEDS: Ferrous Gluconate 324 MG TAB PO SCH (08:11)
[2021-01-22] MEDS: Saccharomyces boulardii 250 MG CAP PER TUBE SCH (08:11)
[2021-01-22] MEDS: Pantoprazole 40 MG GRANULES PACKET PER TUBE SCH ×2 (08:11→21:16)
[2021-01-22] MEDS: Enoxaparin Sodium 40 MG/0.4 ML SYRINGE SC SCH ×2 (08:11→21:15)
[2021-01-22] MEDS: Metamucil PACK PER TUBE SCH (08:12)
[2021-01-22] MEDS: Metoprolol Tartrate 25 MG TAB PER TUBE SCH ×2 (08:12→21:15)
[2021-01-22] MEDS: Dextrose 5% in Water 1,000 ML IV SCH (12:19)
[2021-01-23] MEDS: Dextrose 5% in Water 1,000 ML IV SCH ×2 (04:00→15:58)
[2021-01-23] MEDS: HumaLOG 300 UNITS/3 ML VIAL SC PRN (05:27)
[2021-01-23 07:15] LABS: #Eosinphils 0.2 thou/uL (0.0-0.7); #Lymphocytes 1.3 thou/uL (1.20-3.40); #Monocytes 1.1 thou/uL (0.11-0.59); #Neutrophils 9.5 thou/uL (1.40-6.50); %Eosinophils 1.9 % (0.0-10.0); %Monocytes 8.7 % (0.0-10.0); %Neutrophils 78.4 % (42.0-75.0); Mean Corpuscular HGB CONC 31.2 g/dL (32.0-36.0); Mean Corpuscular Hemoglobin 28.1 pg (27.0-31.0); Mean Platelet Volume 10.7 fL (7.4-10.4); Platelet Count 223 thou/uL (130-400); RBC Distribution Width 16.5 % (11.5-14.5); Red Blood Cell (RBC) Count 4.27 mill/uL (4.20-5.40); White Blood Cell (WBC) Count 12.1 thou/uL (4.8-10.8)
[2021-01-23] MEDS: Ferrous Gluconate 324 MG TAB PO SCH (09:25)
[2021-01-23] MEDS: predniSONE 5 MG TAB PO SCH (09:27)
[2021-01-23] MEDS: Enoxaparin Sodium 40 MG/0.4 ML SYRINGE SC SCH ×2 (09:27→21:35)
[2021-01-23] MEDS: Insulin Glargine 15 UNITS in Pre-Filled Syringe 1 EACH SC SCH ×2 (09:27→21:35)
[2021-01-23] MEDS: Saccharomyces boulardii 250 MG CAP PER TUBE SCH (09:28)
[2021-01-23] MEDS: Pantoprazole 40 MG GRANULES PACKET PER TUBE SCH ×2 (09:28→21:34)
[2021-01-23] MEDS: Metamucil PACK PER TUBE SCH (09:28)
[2021-01-23] MEDS: Metoprolol Tartrate 25 MG TAB PER TUBE SCH ×2 (09:28→21:34)
[2021-01-24 04:15] LABS: Anion Gap 12 mmol/L (10-20); BUN (Urea Nitrogen) 12 mg/dL (7.0-18.7); Calc. Creatinine Clearance 406 mL/min (70-130); Calcium 8.8 mg/dL (7.8-10.44); Carbon Dioxide 24 mmol/L (22-29); Chloride 109 mmol/L (98-107); Glucose 168 mg/dL (70-105); Sodium 142 mmol/L (136-145)
[2021-01-24 05:50] LABS: #Eosinphils 0.2 thou/uL (0.0-0.7); #Lymphocytes 1.5 thou/uL (1.20-3.40); #Monocytes 0.5 thou/uL (0.11-0.59); #Neutrophils 8.5 thou/uL (1.40-6.50); %Basophils 0.1 % (0.0-1.0); %Eosinophils 1.6 % (0.0-10.0); %Monocytes 4.6 % (0.0-10.0); %Neutrophils 79.6 % (42.0-75.0); Hemoglobin 8.4 g/dL (12.0-16.0); Mean Corpuscular HGB CONC 31.9 g/dL (32.0-36.0); Mean Corpuscular Hemoglobin 28.3 pg (27.0-31.0); Mean Corpuscular Volume 88.9 fL (78.0-98.0); Mean Platelet Volume 10.2 fL (7.4-10.4); Platelet Count 262 thou/uL (130-400); RBC Distribution Width 16.3 % (11.5-14.5); Red Blood Cell (RBC) Count 2.96 mill/uL (4.20-5.40); White Blood Cell (WBC) Count 10.7 thou/uL (4.8-10.8)
[2021-01-24] MEDS: Dextrose 5% in Water 1,000 ML IV SCH (06:39)
[2021-01-24] MEDS ORDERED: Potassium Chloride 20 MEQ TAB PO SCH (07:15)
[2021-01-24] MEDS: Pantoprazole 40 MG GRANULES PACKET PER TUBE SCH ×2 (08:44→21:53)
[2021-01-24] MEDS: Metoprolol Tartrate 25 MG TAB PER TUBE SCH ×2 (08:44→21:53)
[2021-01-24] MEDS: Ferrous Gluconate 324 MG TAB PO SCH (08:44)
[2021-01-24] MEDS: Enoxaparin Sodium 40 MG/0.4 ML SYRINGE SC SCH ×2 (08:44→21:53)
[2021-01-24] MEDS: Saccharomyces boulardii 250 MG CAP PO SCH (08:44)
[2021-01-24] MEDS: predniSONE 5 MG TAB PO SCH (08:44)
[2021-01-24] MEDS: Insulin Glargine 15 UNITS in Pre-Filled Syringe 1 EACH SC SCH ×2 (08:45→21:54)
[2021-01-24] MEDS ORDERED: Potassium Bicarbonate/Cit Ac 20 MEQ TAB PER TUBE SCH (09:30)
[2021-01-24] MEDS: Metamucil PACK PER TUBE SCH (11:42)
[2021-01-24] MEDS: HumaLOG 300 UNITS/3 ML VIAL SC PRN (11:49)
[2021-01-24] MEDS: Scopolamine 1.5 mg/72 hour Patch TOP SCH (11:53)
[2021-01-24] MEDS ORDERED: Morphine 4 MG/ML VIAL SLOW IVP PRN (12:02)
[2021-01-24] MEDS ORDERED: Morphine 2 MG/ML VIAL SLOW IVP PRN (12:02)
[2021-01-24 13:49] LABS: Anion Gap 15 mmol/L (10-20); BUN (Urea Nitrogen) 14 mg/dL (7.0-18.7); Calc. Creatinine Clearance 353 mL/min (70-130); Calcium 8.9 mg/dL (7.8-10.44); Carbon Dioxide 23 mmol/L (22-29); Chloride 109 mmol/L (98-107); Glucose 154 mg/dL (70-105); Magnesium 1.5 mg/dL (1.6-2.6); Potassium 4.5 mmol/L (3.5-5.1); Sodium 142 mmol/L (136-145)
[2021-01-24] MEDS ORDERED: Magnesium 2 GM/50 ML 1 GM in Premix Bag 1 BAG IVPB SCH (14:45)
[2021-01-25 04:28] LABS: #Eosinphils 0.2 thou/uL (0.0-0.7); #Lymphocytes 1.4 thou/uL (1.20-3.40); #Monocytes 0.6 thou/uL (0.11-0.59); %Basophils 0.1 % (0.0-1.0); %Eosinophils 1.7 % (0.0-10.0); %Lymphocytes 12.2 % (21.0-51.0); Hemoglobin 8.8 g/dL (12.0-16.0); Mean Corpuscular HGB CONC 31.9 g/dL (32.0-36.0); Mean Corpuscular Hemoglobin 28.4 pg (27.0-31.0); Mean Platelet Volume 10.2 fL (7.4-10.4); Platelet Count 237 thou/uL (130-400); White Blood Cell (WBC) Count 11.2 thou/uL (4.8-10.8)
[2021-01-25] MEDS: Pantoprazole 40 MG GRANULES PACKET PER TUBE SCH ×2 (09:31→21:12)
[2021-01-25] MEDS ORDERED: Fentanyl 100 MCG/2 ML VIAL SLOW IVP PRN (09:32)
[2021-01-25] MEDS: Ferrous Gluconate 324 MG TAB PO SCH (09:32)
[2021-01-25] MEDS: predniSONE 5 MG TAB PO SCH (09:32)
[2021-01-25] MEDS: Saccharomyces boulardii 250 MG CAP PO SCH (09:32)
[2021-01-25] MEDS: Metoprolol Tartrate 25 MG TAB PER TUBE SCH ×2 (09:34→21:12)
[2021-01-25] MEDS: Insulin Glargine 15 UNITS in Pre-Filled Syringe 1 EACH SC SCH ×2 (09:34→21:11)
[2021-01-25] MEDS: Metamucil PACK PER TUBE SCH (09:35)
[2021-01-25] MEDS: Enoxaparin Sodium 40 MG/0.4 ML SYRINGE SC SCH ×2 (09:36→21:13)
[2021-01-25] MEDS ORDERED: Metoprolol Tartrate 25 MG TAB PER TUBE SCH ×2 (09:45→10:00)
[2021-01-25 10:32] LABS: Anion Gap 14 mmol/L (10-20); BUN (Urea Nitrogen) 12 mg/dL (7.0-18.7); Calc. Creatinine Clearance 396 mL/min (70-130); Calcium 9.2 mg/dL (7.8-10.44); Carbon Dioxide 26 mmol/L (22-29); Chloride 107 mmol/L (98-107); Glucose 138 mg/dL (70-105); Magnesium 1.7 mg/dL (1.6-2.6); Potassium 3.5 mmol/L (3.5-5.1); Sodium 143 mmol/L (136-145)
[2021-01-25] MEDS ORDERED: Magnesium 2 GM/50 ML 2 GM in Premix Bag 1 BAG IVPB SCH (11:15)
[2021-01-25] MEDS ORDERED: Potassium Bicarbonate/Cit Ac 20 MEQ TAB PER TUBE SCH (12:30)
[2021-01-25] MEDS: Dextrose 5% in Water 1,000 ML IV SCH (15:36)
[2021-01-26 04:53] LABS: #Eosinphils 0.3 thou/uL (0.0-0.7); #Lymphocytes 1.3 thou/uL (1.20-3.40); #Monocytes 0.5 thou/uL (0.11-0.59); #Neutrophils 7.9 thou/uL (1.40-6.50); %Basophils 0.4 % (0.0-1.0); %Eosinophils 2.8 % (0.0-10.0); %Lymphocytes 13.1 % (21.0-51.0); %Monocytes 4.8 % (0.0-10.0); %Neutrophils 78.8 % (42.0-75.0); Hemoglobin 7.9 g/dL (12.0-16.0); Mean Corpuscular Hemoglobin 28.4 pg (27.0-31.0); Mean Corpuscular Volume 88.7 fL (78.0-98.0); Mean Platelet Volume 9.9 fL (7.4-10.4); Platelet Count 247 thou/uL (130-400); RBC Distribution Width 15.8 % (11.5-14.5); Red Blood Cell (RBC) Count 2.79 mill/uL (4.20-5.40)
[2021-01-26 05:23] LABS: Anion Gap 8 mmol/L (10-20); BUN (Urea Nitrogen) 12 mg/dL (7.0-18.7); Calc. Creatinine Clearance 378 mL/min (70-130); Carbon Dioxide 30 mmol/L (22-29); Chloride 108 mmol/L (98-107); Glucose 152 mg/dL (70-105); Magnesium 1.8 mg/dL (1.6-2.6); Potassium 3.5 mmol/L (3.5-5.1); Sodium 142 mmol/L (136-145)
[2021-01-26] MEDS ORDERED: Potassium Chloride 20 MEQ TAB PO SCH (06:30)
[2021-01-26] MEDS ORDERED: Magnesium 2 GM/50 ML 2 GM in Premix Bag 1 BAG IVPB SCH (06:30)
[2021-01-26] MEDS ORDERED: Potassium Bicarbonate/Cit Ac 20 MEQ TAB PER TUBE SCH (07:30)
[2021-01-26] MEDS: Metamucil PACK PER TUBE SCH (07:47)
[2021-01-26] MEDS: Insulin Glargine 15 UNITS in Pre-Filled Syringe 1 EACH SC SCH ×2 (07:48→21:45)
[2021-01-26] MEDS: Enoxaparin Sodium 40 MG/0.4 ML SYRINGE SC SCH ×2 (07:48→21:44)
[2021-01-26] MEDS: Pantoprazole 40 MG GRANULES PACKET PER TUBE SCH ×2 (07:49→21:44)
[2021-01-26] MEDS: Saccharomyces boulardii 250 MG CAP PO SCH (07:49)
[2021-01-26] MEDS: predniSONE 5 MG TAB PO SCH (07:50)
[2021-01-26] MEDS: Metoprolol Tartrate 25 MG TAB PER TUBE SCH ×2 (07:50→21:44)
[2021-01-26] MEDS: Ferrous Gluconate 324 MG TAB PO SCH (07:50)
[2021-01-26] MEDS: Dextrose 5% in Water 1,000 ML IV SCH (13:10)
[2021-01-27 06:13] LABS: #Eosinphils 0.2 thou/uL (0.0-0.7); #Lymphocytes 1.4 thou/uL (1.20-3.40); #Monocytes 0.5 thou/uL (0.11-0.59); #Neutrophils 7.6 thou/uL (1.40-6.50); %Basophils 0.2 % (0.0-1.0); %Eosinophils 2.1 % (0.0-10.0); %Lymphocytes 14.6 % (21.0-51.0); %Monocytes 5.1 % (0.0-10.0); %Neutrophils 77.9 % (42.0-75.0); Hemoglobin 8.8 g/dL (12.0-16.0); Mean Corpuscular HGB CONC 31.3 g/dL (32.0-36.0); Mean Corpuscular Hemoglobin 27.5 pg (27.0-31.0); Mean Corpuscular Volume 87.8 fL (78.0-98.0); Mean Platelet Volume 9.5 fL (7.4-10.4); Platelet Count 309 thou/uL (130-400); RBC Distribution Width 16.1 % (11.5-14.5); Red Blood Cell (RBC) Count 3.19 mill/uL (4.20-5.40); White Blood Cell (WBC) Count 9.8 thou/uL (4.8-10.8)
[2021-01-27] MEDS: Enoxaparin Sodium 40 MG/0.4 ML SYRINGE SC SCH ×2 (08:07→22:03)
[2021-01-27] MEDS: Metoprolol Tartrate 25 MG TAB PER TUBE SCH ×2 (08:07→22:04)
[2021-01-27] MEDS: Ferrous Gluconate 324 MG TAB PO SCH (08:07)
[2021-01-27] MEDS: Pantoprazole 40 MG GRANULES PACKET PER TUBE SCH ×2 (08:07→22:03)
[2021-01-27] MEDS: predniSONE 5 MG TAB PO SCH (08:07)
[2021-01-27] MEDS: Saccharomyces boulardii 250 MG CAP PO SCH (08:07)
[2021-01-27] MEDS: Metamucil PACK PER TUBE SCH (08:07)
[2021-01-27] MEDS: Insulin Glargine 15 UNITS in Pre-Filled Syringe 1 EACH SC SCH ×2 (09:54→22:05)
[2021-01-27] MEDS: Dextrose 5% in Water 1,000 ML IV SCH (10:51)
[2021-01-27] MEDS: Acetaminophen 650 MG/20.3 ML UDCUP PER TUBE PRN (14:59)
[2021-01-27] MEDS: Scopolamine 1.5 mg/72 hour Patch TOP SCH (15:00)
[2021-01-28] MEDS: Pantoprazole 40 MG GRANULES PACKET PER TUBE SCH ×2 (09:20→21:06)
[2021-01-28] MEDS: Ferrous Gluconate 324 MG TAB PO SCH (09:20)
[2021-01-28] MEDS: Metoprolol Tartrate 25 MG TAB PER TUBE SCH ×2 (09:20→21:07)
[2021-01-28] MEDS: Enoxaparin Sodium 40 MG/0.4 ML SYRINGE SC SCH ×2 (09:20→21:06)
[2021-01-28] MEDS: Metamucil PACK PER TUBE SCH (09:21)
[2021-01-28] MEDS: Saccharomyces boulardii 250 MG CAP PO SCH (09:21)
[2021-01-28] MEDS: predniSONE 5 MG TAB PO SCH (09:21)
[2021-01-28] MEDS: Lantus 1000 UNITS/10 ML VIAL SC SCH ×2 (09:21→21:07)
[2021-01-28 13:02] LABS: #Eosinphils 0.2 thou/uL (0.0-0.7); #Lymphocytes 1.3 thou/uL (1.20-3.40); #Monocytes 0.7 thou/uL (0.11-0.59); #Neutrophils 9.7 thou/uL (1.40-6.50); %Eosinophils 1.3 % (0.0-10.0); %Monocytes 5.9 % (0.0-10.0); %Neutrophils 81.7 % (42.0-75.0); Hemoglobin 9.1 g/dL (12.0-16.0); Mean Corpuscular HGB CONC 31.4 g/dL (32.0-36.0); Mean Corpuscular Hemoglobin 27.9 pg (27.0-31.0); Mean Corpuscular Volume 88.9 fL (78.0-98.0); Mean Platelet Volume 9.5 fL (7.4-10.4); Platelet Count 299 thou/uL (130-400); RBC Distribution Width 16.3 % (11.5-14.5); Red Blood Cell (RBC) Count 3.25 mill/uL (4.20-5.40); White Blood Cell (WBC) Count 11.8 thou/uL (4.8-10.8)
[2021-01-28] MEDS: Dextrose 5% in Water 1,000 ML IV SCH ×2 (14:20→14:21)
[2021-01-28] MEDS: Labetalol HCl 100 MG/20 ML VIAL SLOW IVP PRN (19:54)
[2021-01-29 03:57] LABS: #Eosinphils 0.2 thou/uL (0.0-0.7); #Lymphocytes 1.8 thou/uL (1.20-3.40); #Monocytes 0.7 thou/uL (0.11-0.59); #Neutrophils 9.4 thou/uL (1.40-6.50); %Basophils 0.1 % (0.0-1.0); %Eosinophils 1.9 % (0.0-10.0); %Lymphocytes 14.5 % (21.0-51.0); %Monocytes 5.8 % (0.0-10.0); %Neutrophils 77.7 % (42.0-75.0); Hemoglobin 8.4 g/dL (12.0-16.0); Mean Corpuscular HGB CONC 30.2 g/dL (32.0-36.0); Mean Corpuscular Hemoglobin 26.6 pg (27.0-31.0); Mean Corpuscular Volume 88.1 fL (78.0-98.0); Mean Platelet Volume 9.5 fL (7.4-10.4); Platelet Count 295 thou/uL (130-400); RBC Distribution Width 16.5 % (11.5-14.5); Red Blood Cell (RBC) Count 3.14 mill/uL (4.20-5.40); White Blood Cell (WBC) Count 12.1 thou/uL (4.8-10.8)
[2021-01-29] MEDS: Labetalol HCl 100 MG/20 ML VIAL SLOW IVP PRN ×2 (05:35→17:40)
[2021-01-29] MEDS: HumaLOG 300 UNITS/3 ML VIAL SC PRN (05:44)
[2021-01-29] MEDS: Pantoprazole 40 MG GRANULES PACKET PER TUBE SCH ×2 (09:12→21:21)
[2021-01-29] MEDS: Ferrous Gluconate 324 MG TAB PO SCH (09:12)
[2021-01-29] MEDS: Saccharomyces boulardii 250 MG CAP PO SCH (09:12)
[2021-01-29] MEDS: predniSONE 5 MG TAB PO SCH (09:12)
[2021-01-29] MEDS: Metoprolol Tartrate 25 MG TAB PER TUBE SCH ×2 (09:13→21:21)
[2021-01-29] MEDS: Enoxaparin Sodium 40 MG/0.4 ML SYRINGE SC SCH ×2 (09:13→21:21)
[2021-01-29] MEDS: Metamucil PACK PER TUBE SCH (09:13)
[2021-01-29] MEDS: Lantus 1000 UNITS/10 ML VIAL SC SCH ×2 (09:14→21:22)
[2021-01-29] MEDS: Dextrose 5% in Water 1,000 ML IV SCH (09:22)
[2021-01-30 03:39] LABS: #Basophils 0.1 thou/uL (0.0-0.2); #Eosinphils 0.2 thou/uL (0.0-0.7); #Lymphocytes 2.3 thou/uL (1.20-3.40); #Monocytes 0.9 thou/uL (0.11-0.59); #Neutrophils 10.9 thou/uL (1.40-6.50); %Basophils 0.4 % (0.0-1.0); %Eosinophils 1.4 % (0.0-10.0); %Lymphocytes 15.7 % (21.0-51.0); %Monocytes 6.4 % (0.0-10.0); %Neutrophils 76.1 % (42.0-75.0); Hemoglobin 9.1 g/dL (12.0-16.0); Mean Corpuscular HGB CONC 32.3 g/dL (32.0-36.0); Mean Corpuscular Hemoglobin 28.4 pg (27.0-31.0); Mean Corpuscular Volume 87.8 fL (78.0-98.0); Mean Platelet Volume 9.6 fL (7.4-10.4); Platelet Count 341 thou/uL (130-400); RBC Distribution Width 16.5 % (11.5-14.5); Red Blood Cell (RBC) Count 3.19 mill/uL (4.20-5.40); White Blood Cell (WBC) Count 14.4 thou/uL (4.8-10.8)
[2021-01-30] MEDS: HumaLOG 300 UNITS/3 ML VIAL SC PRN ×2 (04:35→10:07)
[2021-01-30] MEDS: Labetalol HCl 100 MG/20 ML VIAL SLOW IVP PRN (06:10)
[2021-01-30] MEDS: Ferrous Gluconate 324 MG TAB PO SCH (08:45)
[2021-01-30] MEDS: Enoxaparin Sodium 40 MG/0.4 ML SYRINGE SC SCH ×2 (08:45→20:50)
[2021-01-30] MEDS: predniSONE 5 MG TAB PO SCH (08:46)
[2021-01-30] MEDS: Saccharomyces boulardii 250 MG CAP PO SCH (08:46)
[2021-01-30] MEDS: Pantoprazole 40 MG GRANULES PACKET PER TUBE SCH ×2 (08:46→20:51)
[2021-01-30] MEDS: Metoprolol Tartrate 25 MG TAB PER TUBE SCH ×2 (08:46→20:49)
[2021-01-30] MEDS: Lantus 1000 UNITS/10 ML VIAL SC SCH ×2 (08:47→20:50)
[2021-01-30] MEDS: Metamucil PACK PER TUBE SCH (08:47)
[2021-01-30] MEDS: Dextrose 5% in Water 1,000 ML IV SCH (12:20)
[2021-01-30] MEDS: Scopolamine 1.5 mg/72 hour Patch TOP SCH (12:23)
[2021-01-31] MEDS: Ferrous Gluconate 324 MG TAB PO SCH (09:18)
[2021-01-31] MEDS: Saccharomyces boulardii 250 MG CAP PO SCH (09:18)
[2021-01-31] MEDS: Pantoprazole 40 MG GRANULES PACKET PER TUBE SCH ×2 (09:18→20:35)
[2021-01-31] MEDS: Enoxaparin Sodium 40 MG/0.4 ML SYRINGE SC SCH ×2 (09:18→20:28)
[2021-01-31] MEDS: predniSONE 5 MG TAB PO SCH (09:18)
[2021-01-31] MEDS: Metoprolol Tartrate 25 MG TAB PER TUBE SCH ×2 (09:18→20:28)
[2021-01-31] MEDS: Metamucil PACK PER TUBE SCH (09:19)
[2021-01-31] MEDS: Lantus 1000 UNITS/10 ML VIAL SC SCH ×2 (09:19→20:26)
[2021-01-31] MEDS: HumaLOG 300 UNITS/3 ML VIAL SC PRN (10:32)
[2021-01-31] MEDS: Dextrose 5% in Water 1,000 ML IV SCH (11:28)
[2021-01-31] MEDS: Acetaminophen 650 MG/20.3 ML UDCUP PER TUBE PRN ×2 (20:45→20:47)
[2021-02-01] MEDS: Acetaminophen 650 MG/20.3 ML UDCUP PER TUBE PRN ×2 (03:15→20:17)
[2021-02-01] MEDS: HumaLOG 300 UNITS/3 ML VIAL SC PRN (05:31)
[2021-02-01] MEDS: Lantus 1000 UNITS/10 ML VIAL SC SCH ×2 (08:09→20:22)
[2021-02-01] MEDS: Enoxaparin Sodium 40 MG/0.4 ML SYRINGE SC SCH ×2 (08:16→20:17)
[2021-02-01] MEDS: Metamucil PACK PER TUBE SCH (08:16)
[2021-02-01] MEDS: Ferrous Gluconate 324 MG TAB PO SCH (08:17)
[2021-02-01] MEDS: Metoprolol Tartrate 25 MG TAB PER TUBE SCH ×2 (08:17→20:19)
[2021-02-01] MEDS: Saccharomyces boulardii 250 MG CAP PO SCH (08:17)
[2021-02-01] MEDS: predniSONE 5 MG TAB PO SCH (08:17)
[2021-02-01] MEDS: Pantoprazole 40 MG GRANULES PACKET PER TUBE SCH ×2 (08:17→20:18)
[2021-02-01] MEDS: Dextrose 5% in Water 1,000 ML IV SCH (13:41)
[2021-02-01] MEDS: cefTRIAXone\\ROCEPHIN 2 GM in Sodium Chloride 0.9% 100 ML IVPB SCH (20:16)
[2021-02-01] MEDS: VANCOMYCIN 1.25 GM/250 ML BAG 1.25 GM in Premix Bag 1 BAG IVPB SCH (20:16)
[2021-02-02] MEDS: Acetaminophen 650 MG/20.3 ML UDCUP PER TUBE PRN ×2 (05:48→20:10)
[2021-02-02] MEDS: HumaLOG 300 UNITS/3 ML VIAL SC PRN (05:48)
[2021-02-02] MEDS: Metamucil PACK PER TUBE SCH (08:30)
[2021-02-02] MEDS: VANCOMYCIN 1.25 GM/250 ML BAG 1.25 GM in Premix Bag 1 BAG IVPB SCH ×2 (08:55→20:10)
[2021-02-02] MEDS: predniSONE 5 MG TAB PO SCH (08:56)
[2021-02-02] MEDS: Pantoprazole 40 MG GRANULES PACKET PER TUBE SCH ×2 (08:56→20:11)
[2021-02-02] MEDS: Ferrous Gluconate 324 MG TAB PO SCH (08:56)
[2021-02-02] MEDS: Lantus 1000 UNITS/10 ML VIAL SC SCH (08:57)
[2021-02-02] MEDS: Saccharomyces boulardii 250 MG CAP PO SCH (08:57)
[2021-02-02] MEDS: Metoprolol Tartrate 25 MG TAB PER TUBE SCH ×2 (08:57→20:11)
[2021-02-02] MEDS: Enoxaparin Sodium 40 MG/0.4 ML SYRINGE SC SCH ×2 (08:57→20:10)
[2021-02-02] MEDS: Scopolamine 1.5 mg/72 hour Patch TOP SCH (13:05)
[2021-02-02] MEDS: Dextrose 5% in Water 1,000 ML IV SCH (14:13)
[2021-02-02] MEDS: cefTRIAXone\\ROCEPHIN 2 GM in Sodium Chloride 0.9% 100 ML IVPB SCH (17:27)
[2021-02-03] MEDS: Lantus 1000 UNITS/10 ML VIAL SC SCH ×3 (00:12→20:29)
[2021-02-03] MEDS: Ferrous Gluconate 324 MG TAB PO SCH (08:15)
[2021-02-03] MEDS: predniSONE 5 MG TAB PO SCH (08:15)
[2021-02-03 08:28] LABS: Vancomycin, Trough 15.5 ug/mL
[2021-02-03] MEDS: Enoxaparin Sodium 40 MG/0.4 ML SYRINGE SC SCH ×2 (09:10→20:28)
[2021-02-03] MEDS: VANCOMYCIN 1.25 GM/250 ML BAG 1.25 GM in Premix Bag 1 BAG IVPB SCH ×2 (09:10→20:28)
[2021-02-03] MEDS: Metoprolol Tartrate 25 MG TAB PER TUBE SCH ×2 (09:11→20:28)
[2021-02-03] MEDS: Saccharomyces boulardii 250 MG CAP PO SCH (09:11)
[2021-02-03] MEDS: Pantoprazole 40 MG GRANULES PACKET PER TUBE SCH ×2 (09:11→20:28)
[2021-02-03] MEDS: Metamucil PACK PER TUBE SCH (09:12)
[2021-02-03] MEDS: Dextrose 5% in Water 1,000 ML IV SCH (12:00)
[2021-02-03] MEDS: cefTRIAXone\\ROCEPHIN 2 GM in Sodium Chloride 0.9% 100 ML IVPB SCH (18:07)
[2021-02-04] MEDS: HumaLOG 300 UNITS/3 ML VIAL SC PRN (04:31)
[2021-02-04] MEDS: VANCOMYCIN 1.25 GM/250 ML BAG 1.25 GM in Premix Bag 1 BAG IVPB SCH ×2 (08:15→20:40)
[2021-02-04] MEDS: predniSONE 5 MG TAB PO SCH (09:25)
[2021-02-04] MEDS: Metoprolol Tartrate 25 MG TAB PER TUBE SCH ×2 (09:30→20:40)
[2021-02-04] MEDS: Pantoprazole 40 MG GRANULES PACKET PER TUBE SCH ×2 (09:30→20:40)
[2021-02-04] MEDS: Lantus 1000 UNITS/10 ML VIAL SC SCH ×2 (09:31→20:46)
[2021-02-04] MEDS: Enoxaparin Sodium 40 MG/0.4 ML SYRINGE SC SCH ×2 (09:33→20:40)
[2021-02-04] MEDS: Saccharomyces boulardii 250 MG CAP PO SCH (09:34)
[2021-02-04] MEDS: Metamucil PACK PER TUBE SCH (09:35)
[2021-02-04] MEDS: Ferrous Gluconate 324 MG TAB PO SCH (09:36)
[2021-02-04] MEDS: Dextrose 5% in Water 1,000 ML IV SCH (13:00)
[2021-02-04] MEDS: cefTRIAXone\\ROCEPHIN 2 GM in Sodium Chloride 0.9% 100 ML IVPB SCH (18:33)
[2021-02-05] MEDS: Acetaminophen 650 MG/20.3 ML UDCUP PER TUBE PRN ×2 (05:53→12:28)
[2021-02-05] MEDS: HumaLOG 300 UNITS/3 ML VIAL SC PRN ×2 (06:02→11:55)
[2021-02-05] MEDS: predniSONE 5 MG TAB PO SCH (08:45)
[2021-02-05] MEDS: Metamucil PACK PER TUBE SCH (09:15)
[2021-02-05] MEDS: Lantus 1000 UNITS/10 ML VIAL SC SCH ×2 (09:15→21:14)
[2021-02-05] MEDS: Enoxaparin Sodium 40 MG/0.4 ML SYRINGE SC SCH ×3 (09:21→21:00)
[2021-02-05] MEDS: Saccharomyces boulardii 250 MG CAP PO SCH (09:22)
[2021-02-05] MEDS: Pantoprazole 40 MG GRANULES PACKET PER TUBE SCH ×2 (09:22→20:58)
[2021-02-05] MEDS: Metoprolol Tartrate 25 MG TAB PER TUBE SCH ×2 (09:22→20:58)
[2021-02-05] MEDS: Ferrous Gluconate 324 MG TAB PO SCH (09:23)
[2021-02-05] MEDS: VANCOMYCIN 1.25 GM/250 ML BAG 1.25 GM in Premix Bag 1 BAG IVPB SCH (09:28)
[2021-02-05] MEDS: Scopolamine 1.5 mg/72 hour Patch TOP SCH (12:23)
[2021-02-05] MEDS: Dextrose 5% in Water 1,000 ML IV SCH (12:23)
[2021-02-05] MEDS: cefTRIAXone\\ROCEPHIN 2 GM in Sodium Chloride 0.9% 100 ML IVPB SCH (17:11)
[2021-02-05] MEDS: MEROPENEM 1 GM/50 ML 1 GM in Premix Bag 1 BAG IVPB SCH (21:02)
[2021-02-06] MEDS: MEROPENEM 1 GM/50 ML 1 GM in Premix Bag 1 BAG IVPB SCH ×3 (06:01→21:08)
[2021-02-06] MEDS: Acetaminophen 650 MG/20.3 ML UDCUP PER TUBE PRN ×2 (06:02→20:59)
[2021-02-06] MEDS: Metamucil PACK PER TUBE SCH (08:40)
[2021-02-06] MEDS: Ferrous Gluconate 324 MG TAB PO SCH (08:40)
[2021-02-06] MEDS: predniSONE 5 MG TAB PO SCH (08:40)
[2021-02-06] MEDS: Enoxaparin Sodium 40 MG/0.4 ML SYRINGE SC SCH (08:40)
[2021-02-06] MEDS: Saccharomyces boulardii 250 MG CAP PO SCH (08:40)
[2021-02-06] MEDS: Pantoprazole 40 MG GRANULES PACKET PER TUBE SCH ×2 (08:41→21:07)
[2021-02-06] MEDS: Metoprolol Tartrate 25 MG TAB PER TUBE SCH ×2 (08:41→21:01)
[2021-02-06] MEDS: HumaLOG 300 UNITS/3 ML VIAL SC PRN (10:49)
[2021-02-06] MEDS: Lantus 1000 UNITS/10 ML VIAL SC SCH ×2 (11:21→21:06)
[2021-02-06] MEDS: Dextrose 5% in Water 1,000 ML IV SCH (11:40)
[2021-02-07] MEDS ORDERED: Morphine 4 MG/ML VIAL SLOW IVP PRN (00:42)
[2021-02-07 04:17] LABS: Calc. Creatinine Clearance 353 mL/min (70-130)
[2021-02-07] MEDS: MEROPENEM 1 GM/50 ML 1 GM in Premix Bag 1 BAG IVPB SCH ×3 (05:56→20:12)
[2021-02-07] MEDS: Acetaminophen 650 MG/20.3 ML UDCUP PER TUBE PRN (05:56)
[2021-02-07] MEDS: Pantoprazole 40 MG GRANULES PACKET PER TUBE SCH ×2 (08:47→20:12)
[2021-02-07] MEDS: Metoprolol Tartrate 25 MG TAB PER TUBE SCH ×2 (08:47→20:12)
[2021-02-07] MEDS: predniSONE 5 MG TAB PO SCH (08:47)
[2021-02-07] MEDS: Saccharomyces boulardii 250 MG CAP PO SCH (08:47)
[2021-02-07] MEDS: Ferrous Gluconate 324 MG TAB PO SCH (08:47)
[2021-02-07] MEDS: Enoxaparin Sodium 40 MG/0.4 ML SYRINGE SC SCH ×2 (08:48→20:49)
[2021-02-07] MEDS: Lantus 1000 UNITS/10 ML VIAL SC SCH ×2 (08:48→21:24)
[2021-02-07] MEDS: Metamucil PACK PER TUBE SCH (08:57)
[2021-02-07] MEDS: Dextrose 5% in Water 1,000 ML IV SCH (12:09)
[2021-02-08] MEDS: MEROPENEM 1 GM/50 ML 1 GM in Premix Bag 1 BAG IVPB SCH ×3 (05:31→22:02)
[2021-02-08] MEDS: predniSONE 5 MG TAB PO SCH (08:50)
[2021-02-08] MEDS: Ferrous Gluconate 324 MG TAB PO SCH (08:50)
[2021-02-08] MEDS: Saccharomyces boulardii 250 MG CAP PO SCH (09:05)
[2021-02-08] MEDS: Metoprolol Tartrate 25 MG TAB PER TUBE SCH ×2 (09:06→22:01)
[2021-02-08] MEDS: Metamucil PACK PER TUBE SCH (09:06)
[2021-02-08] MEDS: Pantoprazole 40 MG GRANULES PACKET PER TUBE SCH ×2 (09:06→22:01)
[2021-02-08] MEDS: Enoxaparin Sodium 40 MG/0.4 ML SYRINGE SC SCH ×2 (09:06→22:01)
[2021-02-08] MEDS: Lantus 1000 UNITS/10 ML VIAL SC SCH ×2 (09:07→22:02)
[2021-02-08 11:12] LABS: Hemoglobin 6.8 g/dL (12.0-16.0); Mean Corpuscular HGB CONC 31.7 g/dL (32.0-36.0); Mean Corpuscular Hemoglobin 27.5 pg (27.0-31.0); Mean Corpuscular Volume 86.8 fL (78.0-98.0); Mean Platelet Volume 9.9 fL (7.4-10.4); Platelet Count 323 thou/uL (130-400); RBC Distribution Width 17.9 % (11.5-14.5); Red Blood Cell (RBC) Count 2.46 mill/uL (4.20-5.40)
[2021-02-08 11:25] LABS: Anion Gap 11 mmol/L (10-20); BUN (Urea Nitrogen) 35 mg/dL (7.0-18.7); Calc. Creatinine Clearance 318 mL/min (70-130); Calcium 8.2 mg/dL (7.8-10.44); Carbon Dioxide 31 mmol/L (22-29); Chloride 123 mmol/L (98-107); Glucose 172 mg/dL (70-105); Potassium 2.1 mmol/L (3.5-5.1); Sodium 163 mmol/L (136-145)
[2021-02-08] MEDS: Dextrose 5% in Water 1,000 ML IV SCH ×2 (12:20→22:14)
[2021-02-08] MEDS: Scopolamine 1.5 mg/72 hour Patch TOP SCH (12:20)
[2021-02-08] MEDS ORDERED: Magnesium 2 GM/50 ML 2 GM in Premix Bag 1 BAG IVPB SCH (15:00)
[2021-02-08] MEDS: HumaLOG 300 UNITS/3 ML VIAL SC PRN (16:41)
[2021-02-08 19:57] LABS: Hemoglobin 7.4 g/dL (12.0-16.0); Mean Corpuscular HGB CONC 31.6 g/dL (32.0-36.0); Mean Corpuscular Hemoglobin 27.4 pg (27.0-31.0); Mean Corpuscular Volume 86.8 fL (78.0-98.0); Mean Platelet Volume 9.6 fL (7.4-10.4); Platelet Count 307 thou/uL (130-400); RBC Distribution Width 17.4 % (11.5-14.5); Red Blood Cell (RBC) Count 2.69 mill/uL (4.20-5.40); White Blood Cell (WBC) Count 11.7 thou/uL (4.8-10.8)
[2021-02-08 20:24] LABS: ALT (SGPT) 96 U/L (8-55); AST (SGOT) 56 U/L (5-34); Albumin 2.4 g/dL (3.5-5.0); Alkaline Phosphatase 120 U/L (40-110); Anion Gap 12 mmol/L (10-20); BUN (Urea Nitrogen) 31 mg/dL (7.0-18.7); Bilirubin, Total 0.3 mg/dL (0.2-1.2); Calc. Creatinine Clearance 338 mL/min (70-130); Calcium 8.1 mg/dL (7.8-10.44); Carbon Dioxide 28 mmol/L (22-29); Chloride 123 mmol/L (98-107); Globulin 4.4 g/dL (2.4-3.5); Glucose 156 mg/dL (70-105); Magnesium 1.6 mg/dL (1.6-2.6); Potassium 2.2 mmol/L (3.5-5.1); Protein, Total 6.8 g/dL (6.0-8.3); Sodium 161 mmol/L (136-145)
[2021-02-08] MEDS ORDERED: Potassium Chloride 40 MEQ in Sodium Chloride 0.9% 250 ML 250 ML IVPB SCH (21:00)
[2021-02-09] MEDS: MEROPENEM 1 GM/50 ML 1 GM in Premix Bag 1 BAG IVPB SCH ×3 (05:49→21:14)
[2021-02-09 07:11] LABS: Hemoglobin 7.8 g/dL (12.0-16.0); Mean Corpuscular HGB CONC 30.3 g/dL (32.0-36.0); Mean Corpuscular Hemoglobin 26.4 pg (27.0-31.0); Mean Corpuscular Volume 87.1 fL (78.0-98.0); Mean Platelet Volume 9.9 fL (7.4-10.4); Platelet Count 339 thou/uL (130-400); RBC Distribution Width 17.6 % (11.5-14.5); Red Blood Cell (RBC) Count 2.95 mill/uL (4.20-5.40)
[2021-02-09 07:29] LABS: Anion Gap 14 mmol/L (10-20); BUN (Urea Nitrogen) 30 mg/dL (7.0-18.7); Calc. Creatinine Clearance 318 mL/min (70-130); Calcium 8.3 mg/dL (7.8-10.44); Carbon Dioxide 28 mmol/L (22-29); Chloride 121 mmol/L (98-107); Glucose 234 mg/dL (70-105); Magnesium 1.8 mg/dL (1.6-2.6); Sodium 160 mmol/L (136-145)
[2021-02-09 07:38] LABS: Potassium 2.7 mmol/L (3.5-5.1)
[2021-02-09] MEDS ORDERED: Magnesium 2 GM/50 ML 2 GM in Premix Bag 1 BAG IVPB SCH ×2 (09:30→17:30)
[2021-02-09 10:28] LABS: Potassium 2.8 mmol/L (3.5-5.1)
[2021-02-09] MEDS: Enoxaparin Sodium 40 MG/0.4 ML SYRINGE SC SCH ×2 (11:16→20:57)
[2021-02-09] MEDS: predniSONE 5 MG TAB PO SCH (11:16)
[2021-02-09] MEDS: Saccharomyces boulardii 250 MG CAP PO SCH (11:17)
[2021-02-09] MEDS: Ferrous Gluconate 324 MG TAB PO SCH (11:17)
[2021-02-09] MEDS: Lantus 1000 UNITS/10 ML VIAL SC SCH ×2 (11:17→21:07)
[2021-02-09] MEDS: Pantoprazole 40 MG GRANULES PACKET PER TUBE SCH ×2 (11:17→20:56)
[2021-02-09] MEDS: Dextrose 5% in Water 1,000 ML IV SCH ×2 (11:17→18:31)
[2021-02-09] MEDS: Metoprolol Tartrate 25 MG TAB PER TUBE SCH ×2 (11:17→20:57)
[2021-02-09] MEDS: Metamucil PACK PER TUBE SCH (11:18)
[2021-02-09 18:40] LABS: Anion Gap 16 mmol/L (10-20); BUN (Urea Nitrogen) 26 mg/dL (7.0-18.7); Calc. Creatinine Clearance 325 mL/min (70-130); Calcium 8.3 mg/dL (7.8-10.44); Carbon Dioxide 26 mmol/L (22-29); Chloride 121 mmol/L (98-107); Glucose 204 mg/dL (70-105); Potassium 3.2 mmol/L (3.5-5.1); Sodium 160 mmol/L (136-145)
[2021-02-09] MEDS ORDERED: Potassium Chloride 40 MEQ in Premix Bag 1 BAG IVPB SCH (22:00)
[2021-02-10] MEDS: Dextrose 5% in Water 1,000 ML IV SCH ×2 (01:20→15:46)
[2021-02-10 04:12] LABS: Hemoglobin 8.4 g/dL (12.0-16.0); Mean Corpuscular HGB CONC 31.4 g/dL (32.0-36.0); Mean Corpuscular Hemoglobin 27.4 pg (27.0-31.0); Mean Corpuscular Volume 87.5 fL (78.0-98.0); Mean Platelet Volume 10.6 fL (7.4-10.4); Platelet Count 260 thou/uL (130-400); RBC Distribution Width 17.9 % (11.5-14.5); Red Blood Cell (RBC) Count 3.06 mill/uL (4.20-5.40); White Blood Cell (WBC) Count 11.8 thou/uL (4.8-10.8)
[2021-02-10 04:27] LABS: Anion Gap 13 mmol/L (10-20); BUN (Urea Nitrogen) 22 mg/dL (7.0-18.7); Calc. Creatinine Clearance 378 mL/min (70-130); Calcium 8.1 mg/dL (7.8-10.44); Carbon Dioxide 26 mmol/L (22-29); Chloride 122 mmol/L (98-107); Glucose 161 mg/dL (70-105); Potassium 3.4 mmol/L (3.5-5.1); Sodium 158 mmol/L (136-145)
[2021-02-10] MEDS: MEROPENEM 1 GM/50 ML 1 GM in Premix Bag 1 BAG IVPB SCH ×3 (05:57→21:17)
[2021-02-10] MEDS ORDERED: Potassium Bicarbonate/Cit Ac 20 MEQ TAB PER TUBE SCH (06:30)
[2021-02-10] MEDS: predniSONE 5 MG TAB PO SCH (08:56)
[2021-02-10] MEDS: Ferrous Gluconate 324 MG TAB PO SCH (08:56)
[2021-02-10] MEDS: Enoxaparin Sodium 40 MG/0.4 ML SYRINGE SC SCH ×2 (08:57→21:16)
[2021-02-10] MEDS: Pantoprazole 40 MG GRANULES PACKET PER TUBE SCH ×2 (08:57→21:17)
[2021-02-10] MEDS: Metoprolol Tartrate 25 MG TAB PER TUBE SCH ×2 (08:57→21:17)
[2021-02-10] MEDS: Saccharomyces boulardii 250 MG CAP PO SCH (08:57)
[2021-02-10] MEDS: Metamucil PACK PER TUBE SCH (08:57)
[2021-02-10] MEDS: Lantus 1000 UNITS/10 ML VIAL SC SCH ×2 (08:58→21:16)
[2021-02-10 17:46] LABS: Anion Gap 9 mmol/L (10-20); BUN (Urea Nitrogen) 18 mg/dL (7.0-18.7); Calc. Creatinine Clearance 378 mL/min (70-130); Calcium 8.3 mg/dL (7.8-10.44); Carbon Dioxide 33 mmol/L (22-29); Chloride 118 mmol/L (98-107); Glucose 200 mg/dL (70-105); Potassium 3.5 mmol/L (3.5-5.1); Sodium 156 mmol/L (136-145)
[2021-02-10] MEDS ORDERED: Furosemide 20 MG/2 ML VIAL SLOW IVP SCH (18:00)
[2021-02-11 04:10] VITALS: TEMP 97
[2021-02-11 04:24] LABS: Anion Gap 11 mmol/L (10-20); BUN (Urea Nitrogen) 16 mg/dL (7.0-18.7); Calc. Creatinine Clearance 378 mL/min (70-130); Calcium 8.5 mg/dL (7.8-10.44); Carbon Dioxide 31 mmol/L (22-29); Chloride 117 mmol/L (98-107); Glucose 156 mg/dL (70-105); Potassium 3.6 mmol/L (3.5-5.1); Sodium 155 mmol/L (136-145)
[2021-02-11] MEDS: Dextrose 5% in Water 1,000 ML IV SCH (05:35)
[2021-02-11] MEDS: MEROPENEM 1 GM/50 ML 1 GM in Premix Bag 1 BAG IVPB SCH (05:36)
[2021-02-11 07:02] VITALS: BP 147/91
== END 2021-02-11 08:10 | DRG 3 ==
LOC: ERS 16:45 → 2NO 18:46 → CCU 11-21 19:11 → 2SE 12-12 17:13 → PACU-TCU 12-13 10:12 → IMCU/EMU 12-16 18:17 → CCU 01-09 10:49 → IMCU/EMU 02-08 14:16
PROVIDERS: ADMIT Internal Medicine; ATTEND Internal Medicine
PROC: 0BH17EZ Insertion of Endotracheal Airway into Trachea, Via Natural or Artificial Opening (ICD-10-PCS; principal; 2020-11-19)
PROC: 5A1955Z Respiratory Ventilation, Greater than 96 Consecutive Hours (ICD-10-PCS; 2020-11-19)
PROC: 0B110F4 Bypass Trachea to Cutaneous with Tracheostomy Device, Open Approach (ICD-10-PCS; 2020-11-27)
PROC: 0DH63UZ Insertion of Feeding Device into Stomach, Percutaneous Approach (ICD-10-PCS; 2020-11-27)
PROC: 02HV33Z Insertion of Infusion Device into Superior Vena Cava, Percutaneous Approach (ICD-10-PCS; 2020-11-27)
PROC: 0DJ60ZZ Inspection of Stomach, Open Approach (ICD-10-PCS; 2020-11-30)
PROC: B51D1ZZ Fluoroscopy of Bilateral Lower Extremity Veins using Low Osmolar Contrast (ICD-10-PCS; 2021-01-08)
PROC: 0DH63UZ Insertion of Feeding Device into Stomach, Percutaneous Approach (ICD-10-PCS; 2021-01-13)
PROC: 0DH63UZ Insertion of Feeding Device into Stomach, Percutaneous Approach (ICD-10-PCS; 2021-01-13)
PROC: 0JB70ZZ Excision of Back Subcutaneous Tissue and Fascia, Open Approach (ICD-10-PCS; 2021-01-25)
PROC: 0JB70ZZ Excision of Back Subcutaneous Tissue and Fascia, Open Approach (ICD-10-PCS; 2021-02-02)
PROC: 3E033XZ Introduction of Vasopressor into Peripheral Vein, Percutaneous Approach (ICD-10-PCS; 2021-02-10)
PROC: 5A12012 Performance of Cardiac Output, Single, Manual (ICD-10-PCS; 2021-02-10)
PROC: 0BC18ZZ Extirpation of Matter from Trachea, Via Natural or Artificial Opening Endoscopic (ICD-10-PCS; 2021-02-10)
DX: J96.01 Acute respiratory failure with hypoxia (principal); N39.0 Urinary tract infection, site not specified; T83.518A Infection and inflammatory reaction due to other urinary catheter, initial encounter; L89.154 Pressure ulcer of sacral region, stage 4; I21.4 Non-ST elevation (NSTEMI) myocardial infarction; G93.41 Metabolic encephalopathy; I50.31 Acute diastolic (congestive) heart failure; K65.9 Peritonitis, unspecified; I46.9 Cardiac arrest, cause unspecified; J18.9 Pneumonia, unspecified organism; E87.1 Hypo-osmolality and hyponatremia; N17.9 Acute kidney failure, unspecified; I13.0 Hypertensive heart and chronic kidney disease with heart failure and stage 1 through stage 4 chronic kidney disease, or unspecified chronic kidney disease; E87.0 Hyperosmolality and hypernatremia; E66.2 Morbid (severe) obesity with alveolar hypoventilation; K56.7 Ileus, unspecified; K94.23 Gastrostomy malfunction; K94.22 Gastrostomy infection; Z68.43 Body mass index [BMI] 50.0-59.9, adult; G93.1 Anoxic brain damage, not elsewhere classified; T81.31XA Disruption of external operation (surgical) wound, not elsewhere classified, initial encounter; K63.2 Fistula of intestine; D62 Acute posthemorrhagic anemia; M86.9 Osteomyelitis, unspecified; I10 Essential (primary) hypertension; Z82.49 Family history of ischemic heart disease and other diseases of the circulatory system; F17.210 Nicotine dependence, cigarettes, uncomplicated; D50.9 Iron deficiency anemia, unspecified; N18.9 Chronic kidney disease, unspecified; E87.6 Hypokalemia; Y83.8 Other surgical procedures as the cause of abnormal reaction of the patient, or of later complication, without mention of misadventure at the time of the procedure; E11.69 Type 2 diabetes mellitus with other specified complication; E83.42 Hypomagnesemia; E11.65 Type 2 diabetes mellitus with hyperglycemia; Y84.6 Urinary catheterization as the cause of abnormal reaction of the patient, or of later complication, without mention of misadventure at the time of the procedure; Y92.239 Unspecified place in hospital as the place of occurrence of the external cause; B95.2 Enterococcus as the cause of diseases classified elsewhere; R19.7 Diarrhea, unspecified; S31.109A Unspecified open wound of abdominal wall, unspecified quadrant without penetration into peritoneal cavity, initial encounter; E88.81 Metabolic syndrome and other insulin resistance
CPT/HCPCS: 0240U; 31624; 36415; 36416; 36430; 36600; 70450; 71045; 71275; 74018; 74150; 74177; 76380; 77002; 80048; 80053; 80061; 80202; 81001; 81003; 81015; 81025; 82274; 82553; 82565; 82728; 82805; 83036; 83540; 83550; 83605; 83735; 83880; 84100; 84134; 84145; 84484; 85007; 85025; 85027; 85379; 85610; 85652; 85730; 86140; 86850; 86900; 86901; 87040; 87077; 87086; 87149; 87186; 87324; 87389; 87449; 87635; 93005; 93010; 93306; 93970; 94002; 94003; 94640; 94660; 95712; 95816; 95819; 95957; 96365; 96366; 96375; 96376; 97139; C9113; J0171; J0360; J0696; J1450; J1644; J1650; J1815; J1885; J1940; J2001; J2060; J2185; J2250; J2270; J2370; J2405; J2704; J2916; J2920; J2930; J3010; J3370; J3475; J3480; J3490; J7030; J7050; J7070; J7120; J7512; J7620; P9016; Q9963; Q9967; S0020; U0003